=== PATIENT | male | born 1955 | race Two or more races ===

== ENCOUNTER 2020-10-09 11:00 | Outpatient (REF) | payer OTHER, SELFPAY | END 2020-10-09 11:01 | disposition home or self-care (01) | LOC: HO.LAB 11:00 | PROVIDERS: Visit Provider Internal Medicine | DX: Z20.822 Contact with and (suspected) exposure to COVID-19 (principal) | CPT/HCPCS: 36415; C9803; U0003; U0005 ==

== ENCOUNTER 2020-10-17 09:10 | Emergency (ER) | payer OTHER, SELFPAY ==
--- NOTE | ~2020-10-17 | XR_ITS ---
EXAMINATION: XR CHEST CLINICAL INFORMATION: Shortness of breath. COMPARISON: None TECHNIQUE: Frontal view of the chest was obtained. FINDINGS: Bilateral patchy infiltrates are seen most pronounced peripherally in the right upper lobe. Small radiopaque densities overlie the left lower lung. The heart and mediastinal structures are unremarkable. XR/XR chest 1V IMPRESSION: Bilateral patchy infiltrates most pronounced in the right upper lobe most consistent with an infectious/inflammatory process.
--- NOTE | ~2020-10-17 | CT_ITS ---
EXAMINATION: CT ANGIOGRAM OF THE CHEST WITH AND WITHOUT CONTRAST (CT PULMONARY ANGIOGRAM FOR PE) CLINICAL INFORMATION: Reason for Exam SOB, elevted ddimer/ + covid COMPARISON: None TECHNIQUE: Prior to contrast administration, noncontrast localization images were obtained. Subsequently, multidetector volumetric imaging was performed from the thoracic inlet to below the diaphragms following the administration of 80 mL Omnipaque 350 intravenous contrast. No contrast reaction reported Sagittal, coronal, and MIP oblique sagittal reformatted images were obtained on the CT workstation, uploaded to PACS, and reviewed. This CT examination was performed using dose optimization techniques as appropriate, variously including the following: *Automated exposure control *Adjustment of mA and/or kV according to patient size (this includes techniques or standardized protocols for targeted exams where dose is matched to indication/reason for exam; i.e. extremities or head) *Use of iterative reconstruction technique Total exam dose-length product 346 mGy-cm FINDINGS: QUALITY OF STUDY/CONTRAST BOLUS: Satisfactory. PULMONARY ARTERIES: No central or segmental pulmonary emboli. THORACIC AORTA: No aneurysm or dissection. LUNG: The lungs are expanded with right apical parenchymal scarring and apical pleural thickening. There is patchy subpleural-based groundglass attenuation changes in both upper lobes, both lower lobes and right middle lobe suggestive of pneumonitis. There is a 6 mm right lower lobe nodule image 39/12. A 4 mm nodule is seen along the right major fissure image 31/12 likely fissural lymph node. PLEURA: There is minimal left posterior pleural thickening. No evidence of pleural effusion. MEDIASTINUM: The thyroid lobes are symmetrical and normal. The central trachea and the bronchi widely patent. The heart size and the great vessels are normal caliber. There are coronary artery calcifications present. No pericardial effusion seen. No evidence of septal bowing or right heart strain. CHEST WALL/AXILLA: There are small bilateral shotty inguinal lymph nodes. The chest wall is unremarkable. OSSEOUS STRUCTURES: No acute or suspicious osseous abnormality. UPPER ABDOMEN: Visualized liver, spleen and pancreas appears unremarkable. No reflux of contrast into the hepatic veins to suggest elevated right heart pressures. CT/CT angio chest PE protocol IMPRESSION: No evidence of deep. No evidence of aortic aneurysm or dissection. Diffuse bilateral subpleural pneumonic inflammatory changes. ? Covid related. Small nodule right lower lobe and a fissural lymph node right major fissure. No abnormal mediastinal or hilar lymphadenopathy. VTE: negative
[2020-10-17 09:39] VITALS: BP 129/69; PULSE 98; RESP 20; TEMP 37; O2SAT 98; BMI 29.0
--- NOTE | 2020-10-17 10:30 | ECG_ITS ---
Test Reason : DIFFICULY BREATHING Blood Pressure : / mmHG Vent. Rate : 054 BPM Atrial Rate : 054 BPM P-R Int : 154 ms QRS Dur : 092 ms QT Int : 424 ms P-R-T Axes : 062 044 039 degrees QTc Int : 402 ms Sinus bradycardia Otherwise normal ECG No previous ECGs available Referred By: Generic ED Physician Electronically Signed By:Spike Lunsford
--- NOTE | 2020-10-17 10:38 | ED_ITS ---
HPI - General Adult General Chief complaint: General Medical Stated complaint: covid + Time Seen by Provider: 10/17/20 10:38 Source: patient Mode of arrival: ambulatory Limitations: no limitations History of Present Illness HPI narrative: 64-year-old male with below noted past medical history presenting with complaint of states he was diagnosed with COVID last week today he has had continued myalgias productive cough, subjective fever and shortness of breath associated with cough fits. No chest pain. No abdominal pain nausea vomiting or diarrhea. Onset (ago): day(s) Radiation: non-radiation Severity: moderate Severity scale (1-10): 5 Relieving factors: none Exacerbating factors: none Associated symptoms: cough and fever/chills Treatments prior to arrival: none Related Data Previous Rx's Medication Instructions Recorded albuterol sulfate 2 puff INHALATION Q4-6H PRN #8.5 g 10/17/20 doxycycline monohydrate 100 mg PO BID 10 Days #20 cap 10/17/20 prednisone 60 mg PO DAILY 5 Days #15 tab 10/17/20 Allergies Allergy/AdvReac Type Severity Reaction Status Date / Time Penicillins [PENICILLINS] Allergy Severe FAINTED Verified 10/17/20 09:42 CHILD Review of Systems Review of Systems: Constitutional: No Weight loss, No Fever, No Chills, No Night Sweats, No Fatigue, No Malaise ENT/Mouth: No Hearing loss, No Ear Pain, No Nasal Congestion, No Sinus Pain, No Hoarseness, No sore throat, No Rhinorrhea, No Swallowing Difficulty Eyes: No Eye Pain, No Swelling, No Redness, No Foreign Body, No Discharge, No Vision Changes Cardiovascular: + Chest Pain, + SOB, No Dyspnea on Exertion, No Orthopnea, No Edema, No Palpitations Respiratory: + Cough, No Sputum, No Wheezing, No Smoke Exposure, No Dyspnea Gastrointestinal: No Nausea, No Vomiting, No Diarrhea, No Constipation, No abdominal Pain, No Hematochezia, No Melena Genitourinary: No Dysuria, No Urinary Frequency, No Hematuria, No Urinary Incontinence, No Urgency, No Flank Pain, No Urinary Flow Changes, No Hesitancy Musculoskeletal: No joint pain, No Myalgias, No Joint Swelling Skin: No Skin Lesions, No rash Neuro: No Weakness, No Numbness, No Paresthesias, No Loss of Consciousness, No Dizziness, No Headache Psych: No Social Issues Heme/Lymph: No Bruising, No Bleeding,No Lymphadenopathy Endocrine: No Polyuria, No Polydipsia, No Temperature Intolerance Yes all other systems are reviewed and are negative [facility] Past Medical History Medical History Asthma Bladder cancer Diabetes [place] (hard of hearing) Social History Social History Smoking Status: Former smoker Use of substances other than those prescribed or required for medical reasons: No Advance Directives: No Advance Directives Information Provided: Yes Physical Exam Vital Signs: Vital Signs: Last Vital Signs Temp 98.6 F 10/17/20 09:39 Pulse 56 10/17/20 13:39 Resp 18 10/17/20 14:55 BP 131/74 10/17/20 13:39 Pulse Ox 96 10/17/20 14:55 Body Mass Index 29.0 Reviewed Const: General: cooperative; No acute distress or intoxicated appearing Nutritional Appearance: average body habitus Orientation/consciousness: patient oriented x3 HENMT: Head: Yes normal to inspection Ears: hearing grossly normal bilaterally Eyes: General: appearance normal, both eyes and all related structures Visual Cyr: normal visual cyr by confrontation Neck: Neck: Yes normal visual inspection, No positive Brudzinski's sign, No positive Kernig's sign and No tender Thyroid: Thyroid normal Chest: Chest palpation & inspection: normal inspection of the chest Resp: Effort & Inspection: normal respiratory effort Auscultation: wheezes expiratory wheezes and left upper Cardio: Jugular venous distension: no JVD Rhythm: regular rhythm Heart sounds: S1 normal heart sound present and S2 normal heart sound present GI: Inspection: Yes normal to inspection Palpation (GI): Soft to palpation Percussion: Yes normal to percussion Auscultation: normal bowel sounds : General: Yes no CVA tenderness Back/Spine/Pelvis: Back: no CVA tenderness Skin: General skin exam: no rashes or lesions noted Neuro: General: patient oriented x3 Extrem: General: Yes normal to inspection Course Course Course Narrative: 61-year-old male with history of asthma presenting with complaint of worsening COVID symptoms diagnosis here with COVID-19 on 10/09/2020 after having 1 day of upper respiratory symptoms has had symptoms wax and wane with myalgias and cough with associated shortness of breath. Bedside monitor reads oxygen of 98% on room air and hemodynamically stable. Given his recent diagnosis and history of asthma will check labs including COVID started occasion labs and treat with steroids nebs p.r.n.. Reevaluation(s) Reevaluation #1: He has been resting comfortably without any complaints. D- dimer elevated CTA of chest ordered for rule out PE. Reevaluation #2: Remained stable pulse ox 98% on room air at rest and with ambulation. CTA negative of the chest for PE. I will give a short course prednisone given his underlying history of asthma, doxycycline and discharged with clear precaution return home monitoring and follow-up instructions. He feels comfortable plan. Stable for discharge. Medical Decision Making Lab Data Result diagrams: 10/17/20 10:59 10/17/20 10:59 Labs: Lab Results 10/17/20 10/17/20 10/17/20 Range/Units 10:59 10:59 10:59 WBC 7.0 (4.8-10.8) X10*3/uL RBC 4.40 L (4.60-5.80) X10*6/uL Hgb 12.2 L (14.0-18.0) g/dl Hct 37.5 L (42-52) % MCV 85.2 (80-98) fL MCH 27.7 (27.0-33.0) pg MCHC 32.5 (31.0-36.0) g/dl RDW 13.5 (11.0-16.0) % Plt Count 258 (160-400) X10*3/uL MPV 9.3 L (9.4-12.4) fL Immature Gran % (Auto) 0.3 (0.0-0.4) % Neut % (Auto) 72.9 (45-73) % Lymph % (Auto) 22.6 (20-40) % [place] % (Auto) 2.4 (2-11) % Eos % (Auto) 1.7 (0-4) % Baso % (Auto) 0.1 (0-2) % Lymph # (Auto) 1.6 (1.2-4.9) X10*3/uL [place] # (Auto) 0.2 (0.1-1.2) X10*3/uL Eos # (Auto) 0.1 (0.0-0.4) X10*3/uL Baso # (Auto) 0.0 (0.0-0.2) X10*3/uL Abs Immat Gran (auto) 0.02 (0.00-0.03) X10*3/uL Absolute Neuts (auto) 5.1 (2.0-8.3) X10*3/uL Absolute Nucleated RBC 0.000 (0.0-0.012) X10*3/uL Nucleated RBC % (auto) 0.0 (0.0-0.2) /100WBC PT 11.1 (10.8-13.0) SEC INR 0.9 (0.9-1.1) APTT 29.3 (24.1-38.0) SEC D-Dimer 1833 NG/ML Hold Blue Top SEE NOTE Sodium (135-145) mmol/L Potassium (3.3-5.1) mmol/L Chloride (96-108) mmol/L Carbon Dioxide (22-29) mmol/L Anion Gap (12-20) BUN (9-16) mg/dL Creatinine (0.5-1.4) mg/dL Estim Creat Clear Calc Estimated GFR Random Glucose (60-115) mg/dL Lactic Acid (0.5-2.0) mmol/L Lactic Acid Fup @ 2Hr (0.5-2.0) mmol/L Calcium (8.4-10.2) mg/dL Ferritin (20-250) ng/mL Total Bilirubin (0.0-1.0) mg/dL AST (5-37) U/L ALT (0-40) U/L Alkaline Phosphatase (39-117) U/L Lactate Dehydrogenase (118-273) U/L Troponin I High Sens < 3.5 (<3.5-35.0) ng/L C-Reactive Protein (< or = 0.50) mg/dL B-Natriuretic Peptide 287 H (<100) pg/mL Total Protein (6.5-8.0) g/dL Albumin (3.5-5.0) g/dL Procalcitonin ng/mL 10/17/20 10/17/20 10/17/20 Range/Units 10:59 10:59 10:59 WBC (4.8-10.8) X10*3/uL RBC (4.60-5.80) X10*6/uL Hgb (14.0-18.0) g/dl Hct (42-52) % MCV (80-98) fL MCH (27.0-33.0) pg MCHC (31.0-36.0) g/dl RDW (11.0-16.0) % Plt Count (160-400) X10*3/uL MPV (9.4-12.4) fL Immature Gran % (Auto) (0.0-0.4) % Neut % (Auto) (45-73) % Lymph % (Auto) (20-40) % [place] % (Auto) (2-11) % Eos % (Auto) (0-4) % Baso % (Auto) (0-2) % Lymph # (Auto) (1.2-4.9) X10*3/uL [place] # (Auto) (0.1-1.2) X10*3/uL Eos # (Auto) (0.0-0.4) X10*3/uL Baso # (Auto) (0.0-0.2) X10*3/uL Abs Immat Gran (auto) (0.00-0.03) X10*3/uL Absolute Neuts (auto) (2.0-8.3) X10*3/uL Absolute Nucleated RBC (0.0-0.012) X10*3/uL Nucleated RBC % (auto) (0.0-0.2) /100WBC PT (10.8-13.0) SEC INR (0.9-1.1) APTT (24.1-38.0) SEC D-Dimer NG/ML Hold Blue Top Sodium 139 (135-145) mmol/L Potassium 4.1 (3.3-5.1) mmol/L Chloride 102 (96-108) mmol/L Carbon Dioxide 25 (22-29) mmol/L Anion Gap 16 (12-20) BUN 14 (9-16) mg/dL Creatinine 0.94 (0.5-1.4) mg/dL Estim Creat Clear Calc 80.7 Estimated GFR > 60 Random Glucose 208 H (60-115) mg/dL Lactic Acid 3.6 H* (0.5-2.0) mmol/L Lactic Acid Fup @ 2Hr (0.5-2.0) mmol/L Calcium 8.9 (8.4-10.2) mg/dL Ferritin 235 (20-250) ng/mL Total Bilirubin 0.2 (0.0-1.0) mg/dL AST 12 (5-37) U/L ALT 23 (0-40) U/L Alkaline Phosphatase 123 H (39-117) U/L Lactate Dehydrogenase 272 (118-273) U/L Troponin I High Sens (<3.5-35.0) ng/L C-Reactive Protein 13.71 H (< or = 0.50) mg/dL B-Natriuretic Peptide (<100) pg/mL Total Protein 6.4 L (6.5-8.0) g/dL Albumin 3.4 L (3.5-5.0) g/dL Procalcitonin 0.05 ng/mL 10/17/20 Range/Units 13:38 WBC (4.8-10.8) X10*3/uL RBC (4.60-5.80) X10*6/uL Hgb (14.0-18.0) g/dl Hct (42-52) % MCV (80-98) fL MCH (27.0-33.0) pg MCHC (31.0-36.0) g/dl RDW (11.0-16.0) % Plt Count (160-400) X10*3/uL MPV (9.4-12.4) fL Immature Gran % (Auto) (0.0-0.4) % Neut % (Auto) (45-73) % Lymph % (Auto) (20-40) % [place] % (Auto) (2-11) % Eos % (Auto) (0-4) % Baso % (Auto) (0-2) % Lymph # (Auto) (1.2-4.9) X10*3/uL [place] # (Auto) (0.1-1.2) X10*3/uL Eos # (Auto) (0.0-0.4) X10*3/uL Baso # (Auto) (0.0-0.2) X10*3/uL Abs Immat Gran (auto) (0.00-0.03) X10*3/uL Absolute Neuts (auto) (2.0-8.3) X10*3/uL Absolute Nucleated RBC (0.0-0.012) X10*3/uL Nucleated RBC % (auto) (0.0-0.2) /100WBC PT (10.8-13.0) SEC INR (0.9-1.1) APTT (24.1-38.0) SEC D-Dimer NG/ML Hold Blue Top Sodium (135-145) mmol/L Potassium (3.3-5.1) mmol/L Chloride (96-108) mmol/L Carbon Dioxide (22-29) mmol/L Anion Gap (12-20) BUN (9-16) mg/dL Creatinine (0.5-1.4) mg/dL Estim Creat Clear Calc Estimated GFR Random Glucose (60-115) mg/dL Lactic Acid (0.5-2.0) mmol/L Lactic Acid Fup @ 2Hr 1.3 (0.5-2.0) mmol/L Calcium (8.4-10.2) mg/dL Ferritin (20-250) ng/mL Total Bilirubin (0.0-1.0) mg/dL AST (5-37) U/L ALT (0-40) U/L Alkaline Phosphatase (39-117) U/L Lactate Dehydrogenase (118-273) U/L Troponin I High Sens (<3.5-35.0) ng/L C-Reactive Protein (< or = 0.50) mg/dL B-Natriuretic Peptide (<100) pg/mL Total Protein (6.5-8.0) g/dL Albumin (3.5-5.0) g/dL Procalcitonin ng/mL Imaging Data Chest x-ray: Radiologist's impression: [address] [id number] ReportSigned Patient: Tonia Izquierdo#: [id number]: 7Acct:[id number]/Sex: 64 / MADM Date: 10/17/20Loc: EDAttending Dr: Ordering Physician: Generic ED Physician Date of Service: 10/17/20 Procedure(s): XR chest 1V Accession Number(s): [id number] cc: Generic ED Physician~ EXAMINATION: XR CHEST CLINICAL INFORMATION: Shortness of breath. COMPARISON: None TECHNIQUE: Frontal view of the chest was obtained. FINDINGS: Bilateral patchy infiltrates are seen most pronounced peripherally in the right upper lobe. Small radiopaque densities overlie the left lower lung. The heart and mediastinal structures are unremarkable. XR/XR chest 1V IMPRESSION: Bilateral patchy infiltrates most pronounced in the right upper lobe most consistent with an infectious/inflammatory process. Dictated By:MAYA YANES MDSigned By:<Electronically signed by MAYA YANSE MD in OV>10/17/20 1154 DD/ 1030TD/TT: Head Waiter/Waitress: LANDON CTA chest PE: Radiologist's impression: [address] [id number] ReportSigned Patient: Tonia Izquierdo#: [id number]: 1955cct:[id number]/Sex: 64 / MADM Date: 10/17/20Loc: [email or web address].EDAttending Dr: Ordering Physician: Generic ED Physician Date of Service: 10/17/20 Procedure(s): XR chest 1V Accession Number(s): [id number] cc: Generic ED Physician~ EXAMINATION: XR CHEST CLINICAL INFORMATION: Shortness of breath. COMPARISON: None TECHNIQUE: Frontal view of the chest was obtained. FINDINGS: Bilateral patchy infiltrates are seen most pronounced peripherally in the right upper lobe. Small radiopaque densities overlie the left lower lung. The heart and mediastinal structures are unremarkable. XR/XR chest 1V IMPRESSION: Bilateral patchy infiltrates most pronounced in the right upper lobe most consistent with an infectious/inflammatory process. Dictated By:MAYA YANES MDSigned By:<Electronically signed by MAYA YANES MD in OV>10/17/20 1154 DD/ 1030TD/TT: Head Waiter/Waitress: LANDON ECG Data Interpretation: Sinus bradycardia Rate 54 Otherwise normal ECG No acute ST segment changes No previous ECGs availabl Discharge Plan Discharge Clinical Impression: COVID-19, Asthma Patient Disposition: Home, Self-Care Instructions: Asthma (ED), COVID-19 (Coronavirus Disease 2019) (ED) Additional Instructions: Supportive care as discussed Taking medications prescribed Monitor your oxygen level at home as reviewed Return if any concerns or worsening symptoms Otherwise do a follow-up tele visit with your primary care doctor next 3-5 days Thank you Prescriptions: New doxycycline monohydrate 100 mg capsule 100 mg PO BID 10 Days Qty: 20 RF: 0 prednisone 20 mg tablet 60 mg PO DAILY 5 Days Qty: 15 RF: 0 albuterol sulfate 90 mcg/actuation HFA aerosol inhaler 2 puff inhalation Q4-6H PRN (Reason: shortness of breath or wheezing) Qty: 8.5 RF: 0 Referrals: Physician,Unknown [Primary Care Provider] - 2 days (Phone visit with her doctor)
[2020-10-17 11:00] VITALS: BP 108/69; PULSE 54; RESP 24; O2SAT 97
[2020-10-17 11:07] LABS: MANUAL DIFF FLAG NO
[2020-10-17 11:10] LABS: Basophils Percent Auto 0.1 % (0-2); Eosinophils Absolute Auto 0.1 X10*3/uL (0.0-0.4); Eosinophils Percent Auto 1.7 % (0-4); Hematocrit 37.5 % (42-52); Hemoglobin 12.2 g/dl (14.0-18.0); Imm Gran Abs Auto 0.02 X10*3/uL (0.00-0.03); Imm Gran Pct Auto 0.3 % (0.0-0.4); Lymphocytes Absolute Auto 1.6 X10*3/uL (1.2-4.9); Lymphocytes Percent Auto 22.6 % (20-40); Mean Corpuscular HGB Conc 32.5 g/dl (31.0-36.0); Mean Corpuscular Hemoglobin 27.7 pg (27.0-33.0); Mean Corpuscular Volume 85.2 fL (80-98); Mean Platelet Volume 9.3 fL (9.4-12.4); Monocytes Absolute Auto 0.2 X10*3/uL (0.1-1.2); Monocytes Percent Auto 2.4 % (2-11); Neutrophils Absolute Auto 5.1 X10*3/uL (2.0-8.3); Neutrophils Percent Auto 72.9 % (45-73); Platelet Count 258 X10*3/uL (160-400); Red Cell Distribution Width 13.5 % (11.0-16.0)
[2020-10-17 11:20] LABS: INTERNATIONAL NORM RATIO 0.9 (0.9-1.1); Prothrombin Time 11.1 SEC (10.8-13.0)
[2020-10-17 11:23] LABS: Partial Thromboplastin Time 29.3 SEC (24.1-38.0)
[2020-10-17 11:30] LABS: D Dimer 1833 NG/ML
[2020-10-17 11:43] LABS: Alanine Aminotransferase 23 U/L (0-40); Albumin Level 3.4 g/dL (3.5-5.0); Alkaline Phosphatase 123 U/L (39-117); Anion Gap 16 (12-20); Aspartate Amino Transferase 12 U/L (5-37); Bilirubin Total 0.2 mg/dL (0.0-1.0); Blood Urea Nitrogen 14 mg/dL (9-16); C Reactive Protein 13.71 mg/dL (< or = 0.50); Calcium 8.9 mg/dL (8.4-10.2); Carbon Dioxide 25 mmol/L (22-29); Chloride 102 mmol/L (96-108); Creatinine Clr Calc Pharmacy 80.7; Estimated Glomerular Filt Rate > 60; Glucose Random 208 mg/dL (60-115); Lactate Dehydrogenase 272 U/L (118-273); Potassium 4.1 mmol/L (3.3-5.1); Sodium 139 mmol/L (135-145); Total Protein 6.4 g/dL (6.5-8.0)
[2020-10-17 11:44] LABS: B Type Natriuretic Peptide 287 pg/mL (<100); Troponin-I High Sensitivity < 3.5 ng/L (<3.5-35.0)
[2020-10-17 11:46] LABS: Lactic Acid 3.6 mmol/L (0.5-2.0)
[2020-10-17 11:58] LABS: Ferritin 235 ng/mL (20-250); Procalcitonin 0.05 ng/mL
[2020-10-17 12:21] VITALS: BP 125/67; PULSE 51; RESP 20; O2SAT 93
[2020-10-17] MEDS: 0.9 % Sodium Chloride 500 ML IV (12:22)
[2020-10-17] MEDS: dexAMETHasone sod phosphate 4 MG/ML VIAL 6 MG IVPUSH (12:24)
--- NOTE | 2020-10-17 12:31 | PC.NURSE ---
Plan for CTA of chest, 500ml started and decadron given as charted. sat 93% on room air and 2lm via nc placed, sat up to 98% at this time.
[2020-10-17 13:05] LABS: Reflex Lactate? Lactic Acid Added
[2020-10-17] MEDS: iohexoL 350 MG/ML 75 ML INFUS..BTL IV (13:14)
[2020-10-17 13:39] VITALS: BP 131/74; PULSE 56; RESP 18; O2SAT 99
--- NOTE | 2020-10-17 13:40 | PC.NURSE ---
repeat lactic drawn/sent. pt resting and appears comfortable, states body ache is 8/10. vss. resp unlabored, intermittent coughing spells noted, dry
[2020-10-17 14:25] LABS: ~Lactic Acid-LAB USE ONLY 1.3 mmol/L (0.5-2.0)
[2020-10-17 14:55] VITALS: RESP 18; O2SAT 96
== END 2020-10-17 16:32 | disposition home or self-care (01) ==
PROVIDERS: Nurse Practitioner Primary Care; Emergency Provider Emergency Medicine Emergency Medical Services
DX: J45.909 Unspecified asthma, uncomplicated (principal); Z86.16 Personal history of COVID-19; Z85.51 Personal history of malignant neoplasm of bladder; E11.9 Type 2 diabetes mellitus without complications
CPT/HCPCS: 36415; 71045; 71275; 80053; 82728; 83605; 83615; 83880; 84145; 84484; 85025; 85379; 85610; 85730; 86140; 93005; 96361; 96374; 99284; J1100; Q9967

== ENCOUNTER 2020-10-24 11:33 | Outpatient (REF) | payer OTHER, SELFPAY | END 2020-10-24 11:34 | disposition home or self-care (01) | LOC: HO.LAB 11:33 | PROVIDERS: Visit Provider Internal Medicine | DX: Z20.822 Contact with and (suspected) exposure to COVID-19 (principal) | CPT/HCPCS: 36415; C9803; U0003; U0005 ==

== ENCOUNTER 2020-11-14 08:19 | Outpatient (REF) | payer OTHER, SELFPAY ==
[2020-11-14 13:31] LABS: SARS COV2 PCR INHOUSE NEGATIVE (Negative)
== END 2020-11-14 08:20 | disposition home or self-care (01) ==
LOC: HO.LAB 08:19
PROVIDERS: Visit Provider Internal Medicine
DX: Z20.822 Contact with and (suspected) exposure to COVID-19 (principal)
CPT/HCPCS: C9803; U0003

== ENCOUNTER 2020-11-19 12:56 | Emergency (ER) | payer OTHER, SELFPAY ==
--- NOTE | ~2020-11-19 | XR_ITS ---
EXAMINATION: XR CHEST CLINICAL INFORMATION: Shortness of breath COMPARISON: CT scan of the chest October 2020 and chest x-ray October 2020 TECHNIQUE: Frontal view of the chest was obtained. FINDINGS: Minimal linear opacity at the left base compatible discoid atelectasis and/or scar unchanged. Punctate calcifications overlying the left chest from to be in the soft tissues posteriorly on the prior CT rather than in the chest cavity. The cardiac silhouette mediastinum pulmonary vascularity are normal. Bone and soft tissues unremarkable XR/XR chest 1V IMPRESSION: No acute disease. No change.
--- NOTE | ~2020-11-19 | CT_ITS ---
EXAMINATION: CT HEAD WITHOUT CONTRAST CT CERVICAL SPINE WITHOUT CONTRAST CLINICAL INFORMATION: Reason for Exam headache s/p trauma, dizziness x1 month COMPARISON: CT of the paranasal sinuses done on 04/28/2014. TECHNIQUE: Imaging was performed from the skull base to vertex without intravenous administration of contrast. In addition, helical noncontrast CT imaging was acquired through the cervical spine and source images were reviewed along with axial reconstructions and sagittal and coronal MPRs. This CT examination was performed using dose optimization techniques as appropriate, variously including the following: *Automated exposure control. *Adjustment of mA and/or kV according to patient size (this includes techniques or standardized protocols for targeted exams where dose is matched to indication/reason for exam; i.e. extremities or head). *Use of iterative reconstruction technique. Total exam dose-length product 1387 mGy-cm FINDINGS: HEAD: No intracranial mass, hemorrhage, or midline shift is visualized. The ventricles and sulci are age-appropriate. No extra-axial collections are identified. Opacified bilateral mastoid air cells and mucoperiosteal thickening of bilateral ethmoidal and frontal sinuses are present. CERVICAL SPINE: Multilevel degenerative spondylosis related changes are noted throughout the entire cervical spine with significant facet joint arthritic changes also throughout the cervical spine with most pronounced changes seen at upper cervical spine mostly to the left. There is no evidence of acute cervical spine fracture. Vertebral bodies remain normal in height, and alignment is anatomic. No prevertebral or paravertebral soft tissue abnormality is identified. Limited assessment of the lung apices is unremarkable. CT/CT cervical spine wo con IMPRESSION: 1. No acute intracranial pathology. 2. No CT evidence of acute cervical spine fracture or traumatic subluxation. 3. Opacified bilateral mastoid air cells and mucoperiosteal thickening of the frontal ethmoidal air cells. 4. Moderate multilevel degenerative spondylosis including significant facet joint arthritic changes.
--- NOTE | 2020-11-19 13:31 | PC.NURSE ---
called motor assembler to assist in triaging patient, awaiting their arrival
[2020-11-19 13:36] VITALS: BP 198/93; PULSE 90; RESP 20; TEMP 36.9; O2SAT 97; BMI 28.8
[2020-11-19 15:13] VITALS: BP 130/101; PULSE 80; RESP 17; O2SAT 99
--- NOTE | 2020-11-19 15:20 | ECG_ITS ---
Test Reason : FALL Blood Pressure : / mmHG Vent. Rate : 064 BPM Atrial Rate : 064 BPM P-R Int : 164 ms QRS Dur : 086 ms QT Int : 396 ms P-R-T Axes : 053 014 023 degrees QTc Int : 408 ms Normal sinus rhythm Possible Left atrial enlargement Borderline ECG When compared with ECG of 17-OCT-2020 10:57, No significant change was found Referred By: Rhnia Sanchez Electronically Signed By:DELFINA WAGNER
--- NOTE | 2020-11-19 15:22 | ED.GENADULT ---
HPI - General Adult General Chief complaint: General Medical Stated complaint: Multiple Complaints Time Seen by Provider: 11/19/20 15:05 Source: patient Mode of arrival: ambulatory Limitations: no limitations History of Present Illness HPI narrative: 64 y/o male with history of DM, HTN, asthma, bladder cancer, chronic hearing loss, rheumatoid arthritis, recent COVID-19 in October who presents to the ED reporting 1 month of dizziness and headaches. He states it started after he used oven cleaning spray and spray for killing cockroaches without wearing a mask. He reports inhaling the substances and not feeling himself since. He states he feels intoxicated but does not drink alcohol or use drugs. He reports hitting his head after falling out of bed 2 nights ago. He has had nausea on/off for a month with loose stools as well. No abdominal pain, no vomiting. He reports subjective fevers and always feeling hot. He called his doctor 3 days ago to report his ongoing symptoms and an appointment was arranged for next week. He denies any weakness in his arms or legs, no numbness or tingling. He cannot describe his dizziness, when asked if it feels like the room is spinning he says yes and he also states he feels lightheaded. It is all the time, does not come and go. He denies being on blood thinners or losing consciousness after his fall. MD complaint: dizziness and headache x1 month Onset (ago): month(s) (1) Location: head and abdomen Radiation: non-radiation Severity: moderate Quality: aching Pain Consistency: constant Relieving factors: none Exacerbating factors: movement Associated symptoms: headaches and nausea/vomiting Treatments prior to arrival: none Related Data Home Medications Medication Instructions Recorded Confirmed aspirin 81 mg PO DAILY 11/19/20 11/19/20 metformin 1 tab PO BID 11/19/20 11/19/20 nicotine (polacrilex) 1 mg PO Q2H PRN 11/19/20 11/19/20 prednisone 10 mg PO DAILY 11/19/20 11/19/20 risperidone 4 mg PO BEDTIME 11/19/20 11/19/20 sertraline 1.5 tab PO QAM 11/19/20 11/19/20 Previous Rx's Medication Instructions Recorded albuterol sulfate 2 puff INHALATION Q4-6H PRN #8.5 g 03/09/21 doxycycline monohydrate 100 mg PO BID 10 Days #20 cap 10/17/20 Allergies Allergy/AdvReac Type Severity Reaction Status Date / Time Penicillins [PENICILLINS] Allergy Severe FAINTED Verified 10/17/20 09:42 CHILD Review of Systems Review of Systems: Constitutional: + Fever (subjective), No Chills ENT/Mouth: No sore throat, No Rhinorrhea, No Swallowing Difficulty Eyes: No Eye Pain, No Swelling, No Redness Cardiovascular: No Chest Pain, No SOB, No Orthopnea, No Edema Respiratory: No Cough, No Sputum, No Wheezing, No dyspnea Gastrointestinal: + Nausea, No Vomiting, + Diarrhea, No abdominal Pain, No Hematochezia, No Melena Genitourinary: No Dysuria, No Urinary Frequency, No Hematuria Musculoskeletal: No joint pain, No Myalgias Skin: No Skin Lesions, No rash Neuro: No Weakness, No Numbness, + Dizziness, + Headache Psych: No Anxiety/Panic, No Depression Heme/Lymph: No Bruising, No Lymphadenopathy Endocrine: No Polyuria, No Polydipsia PMFSH Past Medical History Attestation statement: The following information was validated with the patient. Medical History Asthma Bladder cancer Diabetes AUGUSTINE (hard of hearing) Social History Social History Alcohol intake: never Smoking Status: Current every day smoker Use of substances other than those prescribed or required for medical reasons: No Advance Directives: No Advance Directives Information Provided: Yes Physical Exam Vital Signs: Vital Signs: Last Vital Signs Temp 97.8 F 11/19/20 17:06 Pulse 74 11/19/20 17:06 Resp 16 11/19/20 17:06 BP 141/83 H 11/19/20 17:06 Pulse Ox 97 11/19/20 17:06 Body Mass Index 28.8 Appearance: Alert. Oriented X3. No acute distress. Eyes: Pupils equal, round and reactive to light. EOMI, No nystagmus ENT: Pharynx normal. Neck: Normal inspection. Neck supple. CVS: Normal heart rate and rhythm. Pulses normal. Respiratory: No respiratory distress. Breath sounds normal. Abdomen: Soft and nontender. +BS x4 Skin: Skin warm and dry. Normal skin color. Normal skin turgor. No rashes. Extremities: No lower extremity edema. Neuro: Oriented X 3. No motor deficit. No sensory deficit. Speaks in full sentences in high pitched voice, very loud voice. Normal finger to nose and normal heel to argueta bilaterally. walks with steady gait with limp due to chronic LE pain. baseline per patient. Course Course Course Narrative: 64 y/o male with history of HTN, HLD, RA, DM and recent COVID who presents with dizziness and headache x1 month. His BP is significantly elevated on arrival 198/93 which can be contributing to his symptoms. He reports recent trauma and had COVID 1 month ago so will get CT head/neck to assess for intracranial injuryt or stroke. No debilitating symptoms and neuro exam is non-focal, not a tPA candidate. Reevaluation(s) Reevaluation #1: CT head/neck showing 1. No acute intracranial pathology. 2. No CT evidence of acute cervical spine fracture or traumatic subluxation. 3. Opacified bilateral mastoid air cells and mucoperiosteal thickening of the frontal ethmoidal air cells. 4. Moderate multilevel degenerative spondylosis including significant facet joint arthritic changes. Lab workup is unremarkable. Orthostatic VS are negative. Repeat BP is significantly improved 130/100. He is ambulating with a steady gait, using his cane with a limp due to chronic pain which is his baseline. He denies dizziness at this time and feels good. He was advised to follow up with PCP, monitor BP at home. He Medical Decision Making Lab Data Result diagrams: 11/19/20 16:10 11/19/20 16:10 Labs: Lab Results 11/19/20 11/19/20 11/19/20 Range/Units 15:27 15:41 15:42 WBC (4.8-10.8) X10*3/uL RBC (4.60-5.80) X10*6/uL Hgb (14.0-18.0) g/dl Hct (42-52) % MCV (80-98) fL MCH (27.0-33.0) pg MCHC (31.0-36.0) g/dl RDW (11.0-16.0) % Plt Count (160-400) X10*3/uL MPV (9.4-12.4) fL Immature Gran % (Auto) (0.0-0.4) % Neut % (Auto) (45-73) % Lymph % (Auto) (20-40) % [place] % (Auto) (2-11) % Eos % (Auto) (0-4) % Baso % (Auto) (0-2) % Lymph # (Auto) (1.2-4.9) X10*3/uL [place] # (Auto) (0.1-1.2) X10*3/uL Eos # (Auto) (0.0-0.4) X10*3/uL Baso # (Auto) (0.0-0.2) X10*3/uL Abs Immat Gran (auto) (0.00-0.03) X10*3/uL Absolute Neuts (auto) (2.0-8.3) X10*3/uL Absolute Nucleated RBC (0.0-0.012) X10*3/uL Nucleated RBC % (auto) (0.0-0.2) /100WBC Hold Blue Top Sodium (135-145) mmol/L Potassium (3.3-5.1) mmol/L Chloride (96-108) mmol/L Carbon Dioxide (22-29) mmol/L Anion Gap (12-20) BUN (9-16) mg/dL Creatinine (0.5-1.4) mg/dL Estim Creat Clear Calc Estimated GFR POC Glucose 275 H (60-115) mg/dL Random Glucose (60-115) mg/dL Calcium (8.4-10.2) mg/dL Magnesium (1.6-2.6) mg/dL Total Bilirubin (0.0-1.0) mg/dL Direct Bilirubin (0.0-0.5) mg/dL AST (5-37) U/L ALT (0-40) U/L Alkaline Phosphatase (39-117) U/L Troponin I High Sens (<3.5-35.0) ng/L Total Protein (6.5-8.0) g/dL Albumin (3.5-5.0) g/dL Urine Color STRAW Urine Appearance CLEAR Urine pH 7.5 (5.0-8.0) Ur Specific [place] 1.010 (1.005-1.025) Urine Protein NEG (NEG-TRACE) MG/DL Urine Glucose (UA) >=1000 H (NEG) MG/DL Urine Ketones NEG (NEG) MG/DL Urine Blood TRACE (NEG) Urine Nitrite NEG (NEG) Ur Leukocyte Esterase NEG (NEG) Urine RBC 1-4 (0) /HPF Urine WBC 0 (0-4) /HPF Ur Squamous Epith Cells TRACE /LPF Urine Bacteria NONE /LPF Urine Opiates Screen Not Detected (Not Detect) Ur Barbiturates Screen Not Detected (Not Detect) Ur Phencyclidine Scrn Not Detected (Not Detect) Ur Amphetamines Screen Not Detected (Not Detect) U Benzodiazepines Scrn Not Detected (Not Detect) Urine Cocaine Screen Not Detected (Not Detect) U Marijuana (THC) Screen Not Detected (Not Detect) Ethyl Alcohol mg/dL 11/19/20 11/19/20 11/19/20 Range/Units 16:10 16:10 16:10 WBC 6.3 (4.8-10.8) X10*3/uL RBC 4.80 (4.60-5.80) X10*6/uL Hgb 13.5 L (14.0-18.0) g/dl Hct 40.5 L (42-52) % MCV 84.4 (80-98) fL MCH 28.1 (27.0-33.0) pg MCHC 33.3 (31.0-36.0) g/dl RDW 15.1 (11.0-16.0) % Plt Count 217 (160-400) X10*3/uL MPV 9.1 L (9.4-12.4) fL Immature Gran % (Auto) 0.3 (0.0-0.4) % Neut % (Auto) 77.9 H (45-73) % Lymph % (Auto) 16.6 L (20-40) % [place] % (Auto) 4.2 (2-11) % Eos % (Auto) 0.5 (0-4) % Baso % (Auto) 0.5 (0-2) % Lymph # (Auto) 1.0 L (1.2-4.9) X10*3/uL [place] # (Auto) 0.3 (0.1-1.2) X10*3/uL Eos # (Auto) 0.0 (0.0-0.4) X10*3/uL Baso # (Auto) 0.0 (0.0-0.2) X10*3/uL Abs Immat Gran (auto) 0.02 (0.00-0.03) X10*3/uL Absolute Neuts (auto) 4.9 (2.0-8.3) X10*3/uL Absolute Nucleated RBC 0.000 (0.0-0.012) X10*3/uL Nucleated RBC % (auto) 0.0 (0.0-0.2) /100WBC Hold Blue Top SEE NOTE Sodium 135 (135-145) mmol/L Potassium 4.0 (3.3-5.1) mmol/L Chloride 101 (96-108) mmol/L Carbon Dioxide 23 (22-29) mmol/L Anion Gap 15 (12-20) BUN 9 (9-16) mg/dL Creatinine 0.84 (0.5-1.4) mg/dL Estim Creat Clear Calc 89.9 Estimated GFR > 60 POC Glucose (60-115) mg/dL Random Glucose 292 H D (60-115) mg/dL Calcium 9.1 (8.4-10.2) mg/dL Magnesium 1.9 (1.6-2.6) mg/dL Total Bilirubin 0.5 (0.0-1.0) mg/dL Direct Bilirubin 0.2 (0.0-0.5) mg/dL AST 13 (5-37) U/L ALT 28 (0-40) U/L Alkaline Phosphatase 122 H (39-117) U/L Troponin I High Sens (<3.5-35.0) ng/L Total Protein 6.9 (6.5-8.0) g/dL Albumin 4.0 (3.5-5.0) g/dL Urine Color Urine Appearance Urine pH (5.0-8.0) Ur Specific [place] (1.005-1.025) Urine Protein (NEG-TRACE) MG/DL Urine Glucose (UA) (NEG) MG/DL Urine Ketones (NEG) MG/DL Urine Blood (NEG) Urine Nitrite (NEG) Ur Leukocyte Esterase (NEG) Urine RBC (0) /HPF Urine WBC (0-4) /HPF Ur Squamous Epith Cells /LPF Urine Bacteria /LPF Urine Opiates Screen (Not Detect) Ur Barbiturates Screen (Not Detect) Ur Phencyclidine Scrn (Not Detect) Ur Amphetamines Screen (Not Detect) U Benzodiazepines Scrn (Not Detect) Urine Cocaine Screen (Not Detect) U Marijuana (THC) Screen (Not Detect) Ethyl Alcohol mg/dL 11/19/20 11/19/20 Range/Units 16:10 16:10 WBC (4.8-10.8) X10*3/uL RBC (4.60-5.80) X10*6/uL Hgb (14.0-18.0) g/dl Hct (42-52) % MCV (80-98) fL MCH (27.0-33.0) pg MCHC (31.0-36.0) g/dl RDW (11.0-16.0) % Plt Count (160-400) X10*3/uL MPV (9.4-12.4) fL Immature Gran % (Auto) (0.0-0.4) % Neut % (Auto) (45-73) % Lymph % (Auto) (20-40) % [place] % (Auto) (2-11) % Eos % (Auto) (0-4) % Baso % (Auto) (0-2) % Lymph # (Auto) (1.2-4.9) X10*3/uL [place] # (Auto) (0.1-1.2) X10*3/uL Eos # (Auto) (0.0-0.4) X10*3/uL Baso # (Auto) (0.0-0.2) X10*3/uL Abs Immat Gran (auto) (0.00-0.03) X10*3/uL Absolute Neuts (auto) (2.0-8.3) X10*3/uL Absolute Nucleated RBC (0.0-0.012) X10*3/uL Nucleated RBC % (auto) (0.0-0.2) /100WBC Hold Blue Top Sodium (135-145) mmol/L Potassium (3.3-5.1) mmol/L Chloride (96-108) mmol/L Carbon Dioxide (22-29) mmol/L Anion Gap (12-20) BUN (9-16) mg/dL Creatinine (0.5-1.4) mg/dL Estim Creat Clear Calc Estimated GFR POC Glucose (60-115) mg/dL Random Glucose (60-115) mg/dL Calcium (8.4-10.2) mg/dL Magnesium (1.6-2.6) mg/dL Total Bilirubin (0.0-1.0) mg/dL Direct Bilirubin (0.0-0.5) mg/dL AST (5-37) U/L ALT (0-40) U/L Alkaline Phosphatase (39-117) U/L Troponin I High Sens < 3.5 (<3.5-35.0) ng/L Total Protein (6.5-8.0) g/dL Albumin (3.5-5.0) g/dL Urine Color Urine Appearance Urine pH (5.0-8.0) Ur Specific [place] (1.005-1.025) Urine Protein (NEG-TRACE) MG/DL Urine Glucose (UA) (NEG) MG/DL Urine Ketones (NEG) MG/DL Urine Blood (NEG) Urine Nitrite (NEG) Ur Leukocyte Esterase (NEG) Urine RBC (0) /HPF Urine WBC (0-4) /HPF Ur Squamous Epith Cells /LPF Urine Bacteria /LPF Urine Opiates Screen (Not Detect) Ur Barbiturates Screen (Not Detect) Ur Phencyclidine Scrn (Not Detect) Ur Amphetamines Screen (Not Detect) U Benzodiazepines Scrn (Not Detect) Urine Cocaine Screen (Not Detect) U Marijuana (THC) Screen (Not Detect) Ethyl Alcohol < 10 mg/dL ECG Data Attestation: I personally reviewed and interpreted this ECG as follows: Interpretation: normal sinus rhythm, HR 64 bpm, normal NC interval, normal QTc, nonspecific t- wave inversion in V12 and possible lead III. No ST segment elevations or depressions. Discharge Plan Discharge Clinical Impression: Hypertension Qualifiers: Hypertension type: unspecified Qualified Code(s): I10 - Essential (primary) hypertension Patient Disposition: Home, Self-Care Instructions: Hypertension and Diabetes (ED) Additional Instructions: Your lab workup was unremarkable in the ER. Your CT scan did not show any traumatic injuries. Your dizziness and headaches may be due to poorly controlled blood pressure. Recommend monitoring your blood pressure two times per day at home. Keep a record for you doctor. If you have dizziness, headache, vision changes, or chest pain in the setting of very high blood pressure come back to the ER for further evaluation. Follow up with your doctor this week. Prescriptions: No Action doxycycline monohydrate 100 mg capsule 100 mg PO BID 10 Days Qty: 20 RF: 0 albuterol sulfate 90 mcg/actuation HFA aerosol inhaler 2 puff inhalation Q4-6H PRN (Reason: shortness of breath or wheezing) Qty: 8.5 RF: 0 nicotine (polacrilex) 2 mg gum 1 mg PO Q2H PRN (Reason: Nicotine Cravings) RF: 0 risperidone 4 mg tablet 4 mg PO BEDTIME RF: 0 sertraline 100 mg tablet 1.5 tab PO QAM RF: 0 aspirin 81 mg tablet,delayed release (DR/EC) 81 mg PO DAILY RF: 0 metformin 1,000 mg tablet 1 tab PO BID RF: 0 prednisone 10 mg tablet 10 mg PO DAILY RF: 0 Referrals: Catie Hong MD [Primary Care Provider] - 2 days
[2020-11-19 15:31] LABS: Glucose, Whole Blood 275 mg/dL (60-115)
[2020-11-19 15:50] LABS: Glucose Urine UA >=1000 MG/DL (NEG); Leukocyte Esterase Urine NEG (NEG); Nitrite Urine NEG (NEG); PH 7.5 (5.0-8.0); Urine Blood TRACE (NEG); Urine Ketones NEG (NEG); Urine Protein NEG (NEG-TRACE)
[2020-11-19 15:52] LABS: Appearance Urine CLEAR; Color Urine STRAW
[2020-11-19 16:03] LABS: Squamous Epithelial Cell Urine TRACE /LPF; WBC Urine 0 /HPF (0-4)
[2020-11-19 16:15] LABS: MANUAL DIFF FLAG NO
[2020-11-19 16:16] LABS: Basophils Percent Auto 0.5 % (0-2); Eosinophils Percent Auto 0.5 % (0-4); Hematocrit 40.5 % (42-52); Hemoglobin 13.5 g/dl (14.0-18.0); Imm Gran Abs Auto 0.02 X10*3/uL (0.00-0.03); Imm Gran Pct Auto 0.3 % (0.0-0.4); Lymphocytes Percent Auto 16.6 % (20-40); Mean Corpuscular HGB Conc 33.3 g/dl (31.0-36.0); Mean Corpuscular Hemoglobin 28.1 pg (27.0-33.0); Mean Corpuscular Volume 84.4 fL (80-98); Mean Platelet Volume 9.1 fL (9.4-12.4); Monocytes Absolute Auto 0.3 X10*3/uL (0.1-1.2); Monocytes Percent Auto 4.2 % (2-11); Neutrophils Absolute Auto 4.9 X10*3/uL (2.0-8.3); Neutrophils Percent Auto 77.9 % (45-73); Platelet Count 217 X10*3/uL (160-400); Red Cell Distribution Width 15.1 % (11.0-16.0); White Blood Count 6.3 X10*3/uL (4.8-10.8)
[2020-11-19 16:17] LABS: Amphetamine Screen Urine Not Detected (Not Detect); Barbiturates, Urine Not Detected (Not Detect); Benzodiazepines Screen Urine Not Detected (Not Detect); Cannabinoid Screen Urine Not Detected (Not Detect); Cocaine Screen Urine Not Detected (Not Detect); Opiate Screen Urine Not Detected (Not Detect); Phencyclidine Screen Urine Not Detected (Not Detect)
[2020-11-19 16:44] LABS: Ethanol < 10 mg/dL
[2020-11-19 16:46] LABS: Alanine Aminotransferase 28 U/L (0-40); Alkaline Phosphatase 122 U/L (39-117); Anion Gap 15 (12-20); Aspartate Amino Transferase 13 U/L (5-37); Bilirubin Direct 0.2 mg/dL (0.0-0.5); Bilirubin Total 0.5 mg/dL (0.0-1.0); Blood Urea Nitrogen 9 mg/dL (9-16); Calcium 9.1 mg/dL (8.4-10.2); Carbon Dioxide 23 mmol/L (22-29); Chloride 101 mmol/L (96-108); Creatinine Clr Calc Pharmacy 89.9; Estimated Glomerular Filt Rate > 60; Glucose Random 292 mg/dL (60-115); Magnesium 1.9 mg/dL (1.6-2.6); Sodium 135 mmol/L (135-145); Total Protein 6.9 g/dL (6.5-8.0); Troponin-I High Sensitivity < 3.5 ng/L (<3.5-35.0)
[2020-11-19 17:02] VITALS: BP 141/83; PULSE 66
[2020-11-19 17:03] VITALS: BP 135/81; PULSE 76
[2020-11-19 17:05] VITALS: BP 152/83; PULSE 77
[2020-11-19 17:06] VITALS: BP 141/83; PULSE 74; RESP 16; TEMP 36.6; O2SAT 97
== END 2020-11-19 17:44 | disposition home or self-care (01) ==
PROVIDERS: Physician Assistant; Emergency Provider Emergency Medicine Emergency Medical Services; PCP Internal Medicine
DX: I10 Essential (primary) hypertension (principal); E11.9 Type 2 diabetes mellitus without complications; R51.9 Headache, unspecified; R42 Dizziness and giddiness; J45.909 Unspecified asthma, uncomplicated; F17.200 Nicotine dependence, unspecified, uncomplicated; Z85.51 Personal history of malignant neoplasm of bladder; Z86.16 Personal history of COVID-19; Z79.82 Long term (current) use of aspirin; Z79.84 Long term (current) use of oral hypoglycemic drugs
CPT/HCPCS: 36415; 70450; 71045; 72125; 80048; 80076; 80307; 80320; 81001; 82947; 83735; 84484; 85025; 93005; 99284

== ENCOUNTER 2021-03-20 07:49 | Emergency (ER) | payer OTHER, SELFPAY ==
[2021-03-20 08:07] VITALS: BP 150/80; PULSE 80; RESP 16; TEMP 35.9; O2SAT 97; BMI 29.7
[2021-03-20] MEDS: Azithromycin 500 MG TABLET 2000 MG PO (10:21)
[2021-03-20] MEDS: Gentamicin Sulfate 80 MG/2 ML VIAL 240 MG IM (10:24)
[2021-03-20 10:55] LABS: CT PCR NOT DETECTED (Not Detect.); NG PCR NOT DETECTED (Not Detect.)
[2021-03-20 11:04] LABS: HBS Num1 32.69 mIU/mL (0-7.99); ~Hepatitis B Surface Antibody REACTIVE (Nonreactive)
--- NOTE | 2021-03-20 11:04 | ED_ITS ---
HPI - Male Genitourinary General Chief complaint: Urogenital-Male Stated complaint: Personal Time Seen by Provider: 03/20/21 09:45 Source: patient Mode of arrival: ambulatory Limitations: no limitations History of Present Illness HPI Narrative: 65-year-old male presents for 2 weeks of a feeling of itchiness inside his penis. No penile discharge. Patient has not had painful ejaculations, he reports that he normally has ?a lot of sperm? and recently he has had minimal sperm. Denies penile lesions. Denies fever. Patient has a penicillin allergy. No sore throat, no swollen glands. No dysuria Patient states he does not have a girlfriend, but sleeps with women and a ?clean house? he does not engage with prostitutes on the streets. Related Data Home Medications Medication Instructions Recorded Confirmed aspirin 81 mg tablet,delayed 81 mg PO DAILY 11/19/20 11/19/20 release metformin 1,000 mg tablet 1 tab PO BID 11/19/20 11/19/20 nicotine (polacrilex) 2 mg gum 1 mg PO Q2H PRN 11/19/20 11/19/20 prednisone 10 mg tablet 10 mg PO DAILY 11/19/20 11/19/20 risperidone 4 mg tablet 4 mg PO BEDTIME 11/19/20 11/19/20 sertraline 100 mg tablet 1.5 tab PO QAM 11/19/20 11/19/20 Previous Rx's Medication Instructions Recorded albuterol sulfate 90 mcg/actuation 2 puff INHALATION Q4-6H PRN #8.5 g 10/17/20 aerosol inhaler doxycycline monohydrate 100 mg 100 mg PO BID 10 Days #20 cap 10/17/20 capsule Allergies Allergy/AdvReac Type Severity Reaction Status Date / Time Penicillins [PENICILLINS] Allergy Severe FAINTED Verified 10/17/20 09:42 CHILD Review of Systems Constitutional: Constitutional: Denies body ache(s), Denies chills, Denies fatigue, Denies fever(s), Denies headache(s), Denies malaise and Denies weakness Eyes: Eyes: Denies diplopia ENT: Denies vertigo, Denies dizziness, Denies otalgia, Denies headache(s), Denies mouth pain, Denies post nasal drip, Denies sinus pain, Denies sinus pressure, Denies sore throat and Denies throat swelling Cardiovascular: Cardiovascular: Denies chest pain, Denies syncope, Denies leg edema, Denies lightheadedness, Denies Loss of Consciousness, Denies palpitations and Denies dyspnea Respiratory: Respiratory: Denies chest congestion, Denies cough and Denies dyspnea Genitourinary: Genitourinary: Denies hematospermia, Denies hematuria, Denies difficulty urinating, Denies difficulty with ejaculations, Denies erectile dysfunction, Denies genital lesions, Reports genital pain, Denies dysuria, Denies flank pain, Denies painful ejaculations, Denies penile discharge, Denies scrotal swelling, Denies testicular mass, Denies testicular pain, Denies urinary hesitancy, Denies urinary incontinence and Denies urinary urgency Comments: Itchiness inside urethra Musculoskeletal: Musculoskeletal: Reports no additional musculoskeletal complaints Neurologic: Denies confusion, Denies vertigo, Denies dizziness, Denies syncope, Denies headache(s) and Denies weakness Psychiatric: Psychiatric: Denies anxiety, Denies confusion and Denies depression Endocrine: Endocrine: Denies fatigue and Denies palpitations Allergic/Immunologic: Allergic/Immunologic: Denies throat swelling PMFSH Past Medical History Medical History Asthma Bladder cancer Diabetes [place] (hard of hearing) Social History Social History Alcohol intake: never Advance Directives: Yes Advance Directives Information Provided: Yes Advance Directives on File: No Physical Exam Vital Signs: Vital Signs: Last Vital Signs Temp 96.6 F L 03/20/21 08:07 Pulse 80 03/20/21 08:07 Resp 16 03/20/21 08:07 BP 150/80 H 03/20/21 08:07 Pulse Ox 97 03/20/21 08:07 Body Mass Index 29.7 Const: General: No confusion Nutritional Appearance: well nourished Orientation/consciousness: No confusion Limitations: no limitations HENMT: Head: Yes normal to inspection, Yes normocephalic and Yes atraumatic Ears: hearing grossly normal bilaterally, external ears normal, TM's normal bilaterally and EAC's normal General nose exam: Normal external nose present Face and sinus: Yes normal facial exam and Yes sinuses nontender Mouth: Normal oral and palatal mucosa present Throat: Yes posterior oropharynx normal Eyes: Conjunctivae: conjunctivae normal Pupils: Equal, round and reactive pupils present EOM: EOMs intact bilaterally Neck: Neck: Yes full ROM, Yes no lymphadenopathy and Yes supple Resp: Effort & Inspection: normal respiratory effort and able to speak in complete sentences Auscultation: clear to auscultation bilaterally, no crackles, no rales, no rhonchi and no wheezes Cardio: Rate: regular rate Rhythm: regular rhythm Heart sounds: S1 normal heart sound present and S2 normal heart sound present GI: Inspection: Yes normal to inspection Palpation (GI): Soft to palpation, nontender, no guarding and not rigid Percussion: Yes normal to percussion Auscultation: normal bowel sounds : Male General Exam: No Genital lesions present Penis: normal penis, circumcised, not erythematous, no nodules, no papules, no pustules, no vesicles, no paraphimosis, no phimosis, no swelling, no ulcerations and No Genital lesions present Meatus: meatus normal, no meatla discharge, No Blood at meatus present and No Erythema at meatus Scrotum: scrotum normal, not edematous, not erythematous and testes descended bilaterally Testes: testicular lie normal, epididymides normal, no testicular mass, no testicular swelling and no testicular tenderness Skin: General skin exam: no rashes or lesions noted Neuro: General: No confusion Cranial nerves: Yes Equal, round and reactive pupils present Extrem: General: Yes normal to inspection and Yes full ROM Psych: Appearance: grossly normal Affect: normal affect Attitude: cooperative Thought process: Normal thought process present Course Course Course Narrative: 65-year-old male who has had unprotected sex with sex workers, presents for 2 weeks of a sensation of itchiness inside his penis. On exam, patient has a normal genital exam, and no pain with testicle palpitation, no lesions rashes or swelling on his penis or testicles. Treated patient with gentamicin and azithromycin as patient is allergic to penicillin. Got gonorrhea chlamydia, HIV, hepatitis panel, syphilis labs. Consultation will avoid call him with lab results. Advised patient to practice safe sex and use condoms. Patient said he would not use condoms. Gave return precautions. Patient verbalized agreement and understanding of the plan. MDM - Male Genitourinary Lab Data Labs: Lab Results 03/20/21 03/20/21 Range/Units 08:21 10:14 Chlam trachomat DNA PCR NOT DETECTED (Not Detect.) Hep Bs Antigen Negative (Negative) Hep Bs Antibody REACTIVE (Nonreactive) Hep B Core Total Ab Nonreactive (Nonreactive) HIV 1&2 Ab/P24 Ag 4thGn Nonreactive (Nonreactive) N.gonorrhoeae DNA (PCR) NOT DETECTED (Not Detect.) Discharge Plan Discharge Clinical Impression: Urethritis, STI (sexually transmitted infection) Patient Disposition: Home, Self-Care Instructions: Gonorrhea (ED), Nonspecific Urethritis in Men (ED) Additional Instructions: Please practice safe sex and use condoms. We will call you with the results of your blood work and your urine test. Had please return to emergency room if you have fevers, swelling in your groin, bumps or redness on your penis, or for any other new or concerning symptoms. Prescriptions: No Action doxycycline monohydrate 100 mg capsule 100 mg PO BID 10 Days Qty: 20 RF: 0 albuterol sulfate 90 mcg/actuation HFA aerosol inhaler 2 puff inhalation Q4-6H PRN (Reason: shortness of breath or wheezing) Qty: 8.5 RF: 0 nicotine (polacrilex) 2 mg gum 1 mg PO Q2H PRN (Reason: Nicotine Cravings) RF: 0 risperidone 4 mg tablet 4 mg PO BEDTIME RF: 0 sertraline 100 mg tablet 1.5 tab PO QAM RF: 0 aspirin 81 mg tablet,delayed release (DR/EC) 81 mg PO DAILY RF: 0 metformin 1,000 mg tablet 1 tab PO BID RF: 0 prednisone 10 mg tablet 10 mg PO DAILY RF: 0 Interventions: ED Discharge Assessment Last Done: 03/20/21 10:42 Discharge Date/Time: 03/20/21 10:43
[2021-03-20 11:06] LABS: HBc Num1 0.03 S/CO (0.00-0.79); HBsAGNum1 0.14 S/CO (0.00-0.99); HIV AB/AG Nonreactive (Nonreactive); HIV Num 1 0.07 S/CO (0.00-0.99); Hepatitis B Core Antibody Nonreactive (Nonreactive); Hepatitis B Surface Antigen Negative (Negative)
[2021-03-21 09:11] LABS: Syphilis Screen Nonreactive (Nonreactive)
[2021-03-24 15:11] LABS: HSV 1 IgM IFA Positive (Negative); HSV 2 IgM IFA Positive (Negative)
[2021-03-24 15:42] LABS: HSV 1 IgM Titer 1:40 (<1:20); HSV 2 IgM Titer 1:40 (<1:20)
== END 2021-03-20 10:43 | disposition home or self-care (01) ==
PROVIDERS: Physician Assistant; Emergency Provider Emergency Medicine Emergency Medical Services; PCP Internal Medicine
DX: N34.2 Other urethritis (principal); A60.9 Anogenital herpesviral infection, unspecified
CPT/HCPCS: 36415; 86695; 86696; 86704; 86706; 86780; 87340; 87389; 87491; 87591; 96372; 99283; 99284; J1580

== ENCOUNTER 2021-04-20 10:55 | Outpatient (REF) | payer OTHER, SELFPAY | END 2021-04-20 10:56 | disposition home or self-care (01) | LOC: HO.LAB 10:55 | PROVIDERS: PCP Internal Medicine; Visit Provider Internal Medicine | DX: Z20.822 Contact with and (suspected) exposure to COVID-19 (principal) | CPT/HCPCS: U0003; U0005 ==

== ENCOUNTER 2021-05-28 08:18 | Emergency (ER) | payer OTHER, SELFPAY ==
--- NOTE | 2021-05-28 | ECG_ITS ---
Test Reason : Chest Pain Blood Pressure : / mmHG Vent. Rate : 061 BPM Atrial Rate : 061 BPM P-R Int : 158 ms QRS Dur : 082 ms QT Int : 390 ms P-R-T Axes : 061 016 016 degrees QTc Int : 392 ms Normal sinus rhythm Normal ECG When compared with ECG of 19-NOV-2020 16:38, No significant change was found Referred By: Generic ED Physician Electronically Signed By:CHELSEY JACOBO MD
--- NOTE | ~2021-05-28 | XR_ITS ---
EXAMINATION: XR SHOULDER, LEFT CLINICAL INFORMATION: Left shoulder pain. COMPARISON: None TECHNIQUE: Two views of the left shoulder. FINDINGS: Mild left acromioclavicular degenerative joint changes are seen. There is no acute fracture or dislocation. The soft tissues are unremarkable. XR/XR shoulder LT min 2V IMPRESSION: Mild left acromioclavicular degenerative joint changes. No acute abnormality.
--- NOTE | ~2021-05-28 | XR_ITS ---
EXAMINATION: XR CERVICAL SPINE CLINICAL INFORMATION: Neck pain. COMPARISON: Cervical spine CT scan dated 11/19/2020. TECHNIQUE: 3 views of the cervical spine were obtained. FINDINGS: There is straightening of the normal cervical lordosis. Mild to moderate multilevel degenerative disc disease is seen most pronounced at C3-C4, C5-C6 and C6-C7. Minimal grade 1 retrolisthesis is seen at these levels as well. The vertebral bodies are intact is no acute fracture. The spinous processes are intact. The odontoid process is intact. The prevertebral soft tissues are unremarkable. XR/XR cervical spine 2V IMPRESSION: 1. Straightening of the normal cervical lordosis may be secondary to positioning and/or muscle spasm. 2. Mild to moderate multilevel spondylosis as detailed above without significant change.
--- NOTE | ~2021-05-28 | CT_ITS ---
EXAMINATION: CT HEAD WITHOUT CONTRAST CLINICAL INFORMATION: Headache. COMPARISON: 11/19/[address] scan. TECHNIQUE: Contiguous axial imaging was performed from the skull base to vertex without intravenous administration of contrast. Coronal and sagittal reformatted images were obtained. This CT examination was performed using dose optimization techniques as appropriate, variously including the following: *Automated exposure control *Adjustment of mA and/or kV according to patient size (this includes techniques or standardized protocols for targeted exams where dose is matched to indication/reason for exam; i.e. extremities or head) *Use of iterative reconstruction technique DLP: 678 mGy-cm FINDINGS: The cortical sulci are normal. The lateral ventricles are symmetrical. The third and fourth ventricles are in their normal midline position. The basilar and prepontine cisterns are unremarkable. There is no acute intra or extracerebral abnormality. There is no mass effect or midline shift. Sections through the bony calvarium are unremarkable. Mild to moderate mucosal thickening is seen in the paranasal sinuses with mild interval increase. Hypoaeration of the left mastoid air cells is again seen. Right mastoid air cell opacification has decreased. The bony orbits and orbital contents are unremarkable. CT/CT head/brain wo con IMPRESSION: 1. No acute intracranial pathology. 2. Mild to moderate pansinusitis representing mild interval worsening from the previous study. 3. Interval improvement in right mastoid opacification. Left mastoid hypoaeration without significant change.
[2021-05-28 08:30] VITALS: BP 153/83; PULSE 79; RESP 18; TEMP 36.7; O2SAT 99; BMI 29.8
--- NOTE | 2021-05-28 09:20 | ED.GENADULT ---
HPI - General Adult General Chief complaint: General Medical Stated complaint: lt shoulder, neck & head pain, dizziness Time Seen by Provider: 05/28/21 09:19 Source: patient Mode of arrival: ambulatory Limitations: no limitations History of Present Illness HPI narrative: 65-year-old male presents for left shoulder pain and headache that he has had for months. States he fell off his bed 2 months ago and hit his head. States he has had a headache in the back was had for 2 months. States he has neck pain and pain throughout his entire body. States he especially has pain in his left shoulder that radiates up into his left neck and his head. One month ago he had chest pain on the left side. He has been feeling dizzy. He has multiple complaints. Related Data Home Medications Medication Instructions Recorded Confirmed aspirin 81 mg tablet,delayed 81 mg PO DAILY 11/19/20 11/19/20 release metformin 1,000 mg tablet 1 tab PO BID 11/19/20 11/19/20 nicotine (polacrilex) 2 mg gum 1 mg PO Q2H PRN 11/19/20 11/19/20 prednisone 10 mg tablet 10 mg PO DAILY 11/19/20 11/19/20 risperidone 4 mg tablet 4 mg PO BEDTIME 11/19/20 11/19/20 sertraline 100 mg tablet 1.5 tab PO QAM 11/19/20 11/19/20 Previous Rx's Medication Instructions Recorded albuterol sulfate 90 mcg/actuation 2 puff INHALATION Q4-6H PRN #8.5 g 10/17/20 aerosol inhaler doxycycline monohydrate 100 mg 100 mg PO BID 10 Days #20 cap 10/17/20 capsule doxycycline hyclate 100 mg capsule 100 mg PO BID 10 Days #20 cap 05/28/21 ketorolac 10 mg tablet 10 mg PO Q6H 5 Days #20 tab 05/28/21 Allergies Allergy/AdvReac Type Severity Reaction Status Date / Time Penicillins [PENICILLINS] Allergy Severe FAINTED Verified 10/17/20 09:42 CHILD Review of Systems Constitutional: Constitutional: Reports body ache(s), Denies chills, Denies fatigue, Denies fever(s), Reports headache(s), Denies malaise and Denies weakness Eyes: Eyes: Denies change in vision and Denies diplopia ENT: Denies vertigo, Reports dizziness (not currntly), Denies otalgia, Reports headache(s), Denies mouth pain, Reports neck pain, Denies post nasal drip, Denies sinus pain, Denies sinus pressure, Denies sore throat and Denies throat swelling Cardiovascular: Cardiovascular: Denies chest pain, Denies syncope, Denies leg edema, Denies lightheadedness, Denies Loss of Consciousness, Denies palpitations and Denies dyspnea Respiratory: Respiratory: Denies chest congestion, Denies cough and Denies dyspnea Gastrointestinal: Gastrointestinal: Denies abdominal pain, Denies hematochezia, Denies constipation, Denies diarrhea and Denies vomiting Musculoskeletal: Musculoskeletal: Reports myalgias and Reports neck pain Comments: States his entire body hurts all over, history arthritis Integumentary/Breasts: Skin/Breast: Denies erythema and Denies rash Neurologic: Denies Abnormal speech present, Denies confusion, Denies vertigo, Reports dizziness (not currntly), Denies syncope, Reports headache(s), Denies Sensory deficit (Neuro) and Denies weakness Psychiatric: Psychiatric: Denies anxiety, Denies confusion and Denies depression Endocrine: Endocrine: Denies fatigue and Denies palpitations Allergic/Immunologic: Allergic/Immunologic: Denies throat swelling PMFSH Past Medical History Medical History Asthma Bladder cancer Diabetes [place] (hard of hearing) Social History Social History Alcohol intake: never Advance Directives: No Physical Exam Vital Signs: Vital Signs: Last Vital Signs Temp 97.7 F 05/28/21 11:43 Pulse 55 05/28/21 11:56 Resp 16 05/28/21 11:56 BP 139/77 05/28/21 11:56 Pulse Ox 97 05/28/21 11:56 Body Mass Index 29.8 Const: General: No confusion Nutritional Appearance: well nourished Orientation/consciousness: patient oriented x3 and No confusion Limitations: no limitations HENMT: Head: Yes normal to inspection, Yes normocephalic and Yes atraumatic Ears: hearing grossly normal bilaterally, external ears normal, TM's normal bilaterally and EAC's normal General nose exam: Normal external nose present Face and sinus: Yes normal facial exam and Yes sinuses nontender Mouth: Normal oral and palatal mucosa present Throat: Yes posterior oropharynx normal Eyes: Conjunctivae: conjunctivae normal Pupils: Equal, round and reactive pupils present EOM: EOMs intact bilaterally Neck: Neck: Yes full ROM, Yes no lymphadenopathy and Yes supple Resp: Effort & Inspection: normal respiratory effort and able to speak in complete sentences Auscultation: clear to auscultation bilaterally, no crackles, no rales, no rhonchi and no wheezes Cardio: Rate: regular rate Rhythm: regular rhythm Heart sounds: S1 normal heart sound present and S2 normal heart sound present GI: Inspection: Yes normal to inspection Palpation (GI): Soft to palpation, nontender, no guarding and not rigid Percussion: Yes normal to percussion Auscultation: normal bowel sounds Skin: General skin exam: no rashes or lesions noted Neuro: General: patient oriented x3 and No confusion Cranial nerves: Yes CN's II-XII intact bilaterally, Yes Facial sensation intact/muscles of mastication intact, Yes Equal, round and reactive pupils present, Yes Normal accommodation reflex present, Yes Bilaterally intact EOM present, Yes Nystagmus not present, Yes Normal facial strength present, Yes Midline tongue present, Yes Ability to bilaterally rotate head present and Yes Ability to bilaterally elevate shoulders present Cognition (Neuro): normal cognition Speech: No Abnormal speech present Gait exam (Neuro): Antalgic gait present Motor exam (neuro): 5/5 motor strength present throughout Sensory Exam: No Sensory deficit (Neuro) Deep tendon reflexes (DTR's): Right brachioradialis reflex intensity grade: 1+, Left brachioradialis reflex intensity grade: 1+, Right patellar reflex intensity grade: 1+ and Left patellar reflex intensity grade: 1+ Coordination: [id number] test normal Romberg Test: Negative Pupils: Normal pupillary reactivity/response: bilateral Extrem: Other: Tender to palpate and upper paraspinous muscles left side General: Yes normal to inspection and Yes full ROM Right upper extremity: normal to inspection, full ROM, normal capillary refill and shoulder/upper arm Details: normal to inspection, axillary nerve sensory function normal and normal ROM; Negative for no tenderness, no swelling and no crepitus; No no cyanosis and no edema Psych: Appearance: grossly normal Affect: normal affect Attitude: cooperative Thought process: Normal thought process present Course Course Course Narrative: 65-year-old male presents for headache for months, left shoulder pain for months. Patient has multiple complaints and is endorsing pain throughout his entire body that has been going on for months. On exam, patient has a benign neurological exam, patient has a limping gait that he says is due to arthritis. Patient is tender to palpate over his left upper paraspinous muscles near his neck. Patient's labs are significant for an elevated blood sugar of 253, otherwise labs including troponin are within normal limits. EKG is normal. X-ray of neck shows straightening of cervical lordosis indicating muscle spasm, with no change in spondylosis. X-ray left shoulder shows arthritis. CT shows pansinusitis. Gave Toradol for muscle spasm, will treat with doxycycline for sinusitis. Am giving fluids and will recheck point of care blood sugar. Medical Decision Making Lab Data Result diagrams: 05/28/21 11:15 05/28/21 11:15 Labs: Lab Results 05/28/21 05/28/21 05/28/21 Range/Units 11:15 11:15 11:15 WBC 6.6 (4.8-10.8) X10*3/uL RBC 4.91 (4.60-5.80) X10*6/uL Hgb 13.6 L (14.0-18.0) g/dl Hct 40.5 L (42-52) % MCV 82.5 (80-98) fL MCH 27.7 (27.0-33.0) pg MCHC 33.6 (31.0-36.0) g/dl RDW 13.1 (11.0-16.0) % Plt Count 221 (160-400) X10*3/uL MPV 9.4 (9.4-12.4) fL Immature Gran % (Auto) 0.3 (0.0-0.4) % Neut % (Auto) 60.0 (45-73) % Lymph % (Auto) 28.0 (20-40) % [place] % (Auto) 5.6 (2-11) % Eos % (Auto) 5.3 H (0-4) % Baso % (Auto) 0.8 (0-2) % Lymph # (Auto) 1.9 (1.2-4.9) X10*3/uL [place] # (Auto) 0.4 (0.1-1.2) X10*3/uL Eos # (Auto) 0.4 (0.0-0.4) X10*3/uL Baso # (Auto) 0.1 (0.0-0.2) X10*3/uL Abs Immat Gran (auto) 0.02 (0.00-0.03) X10*3/uL Absolute Neuts (auto) 4.0 (2.0-8.3) X10*3/uL Absolute Nucleated RBC 0.000 (0.0-0.012) X10*3/uL Nucleated RBC % (auto) 0.0 (0.0-0.2) /100WBC Sodium 137 (135-145) mmol/L Potassium 4.1 (3.3-5.1) mmol/L Chloride 106 (96-108) mmol/L Carbon Dioxide 21 L (22-29) mmol/L Anion Gap 14 (12-20) BUN 9 (9-16) mg/dL Creatinine 0.97 (0.5-1.4) mg/dL Estim Creat Clear Calc 78.1 Estimated GFR > 60 POC Glucose (60-115) mg/dL Random Glucose 253 H (60-115) mg/dL Calcium 9.1 (8.4-10.2) mg/dL Total Bilirubin 0.3 (0.0-1.0) mg/dL AST 10 (5-37) U/L ALT 16 (0-40) U/L Alkaline Phosphatase 117 (39-117) U/L Troponin I High Sens < 3.5 (<3.5-35.0) ng/L Total Protein 6.9 (6.5-8.0) g/dL Albumin 3.9 (3.5-5.0) g/dL 05/28/21 Range/Units 11:19 WBC (4.8-10.8) X10*3/uL RBC (4.60-5.80) X10*6/uL Hgb (14.0-18.0) g/dl Hct (42-52) % MCV (80-98) fL MCH (27.0-33.0) pg MCHC (31.0-36.0) g/dl RDW (11.0-16.0) % Plt Count (160-400) X10*3/uL MPV (9.4-12.4) fL Immature Gran % (Auto) (0.0-0.4) % Neut % (Auto) (45-73) % Lymph % (Auto) (20-40) % [place] % (Auto) (2-11) % Eos % (Auto) (0-4) % Baso % (Auto) (0-2) % Lymph # (Auto) (1.2-4.9) X10*3/uL [place] # (Auto) (0.1-1.2) X10*3/uL Eos # (Auto) (0.0-0.4) X10*3/uL Baso # (Auto) (0.0-0.2) X10*3/uL Abs Immat Gran (auto) (0.00-0.03) X10*3/uL Absolute Neuts (auto) (2.0-8.3) X10*3/uL Absolute Nucleated RBC (0.0-0.012) X10*3/uL Nucleated RBC % (auto) (0.0-0.2) /100WBC Sodium (135-145) mmol/L Potassium (3.3-5.1) mmol/L Chloride (96-108) mmol/L Carbon Dioxide (22-29) mmol/L Anion Gap (12-20) BUN (9-16) mg/dL Creatinine (0.5-1.4) mg/dL Estim Creat Clear Calc Estimated GFR POC Glucose 217 H (60-115) mg/dL Random Glucose (60-115) mg/dL Calcium (8.4-10.2) mg/dL Total Bilirubin (0.0-1.0) mg/dL AST (5-37) U/L ALT (0-40) U/L Alkaline Phosphatase (39-117) U/L Troponin I High Sens (<3.5-35.0) ng/L Total Protein (6.5-8.0) g/dL Albumin (3.5-5.0) g/dL ECG Data Interpretation: Sinus at its a rate of 64, QRS 86, MA 164, QTC 408, no ST elevations or depressions, EKG unchanged from 10/17/2020 Discharge Plan Discharge Clinical Impression: Acute bacterial sinusitis, Muscle spasm of shoulder region Patient Disposition: Home, Self-Care Instructions: Sinusitis (ED), Muscle Spasm (ED) Additional Instructions: Please call your primary care provider for follow-up appointment. I would like you to be seen in the next week. Your x-ray shows you have arthritis in her left shoulder, you have muscle spasm in the left side of her neck, your head CT shows a have a sinusitis. Your blood sugars elevated today but she did not take her medicine, please go home and take your medicine. I have prescribed an antibiotic for your sinus infection, please take that for 10 days. I have prescribed ketorolac for the muscle spasm. With ketorolac you may not take any ibuprofen, no Excedrin, no Aleve, no Motrin, nothing containing ibuprofen wire taking ketorolac. Please return to the emergency room if you have sudden severe headache, visual changes, chest pain, shortness of breath, or any other new or concerning symptoms. Prescriptions: New doxycycline hyclate 100 mg capsule 100 mg PO BID 10 Days Qty: 20 RF: 0 ketorolac 10 mg tablet 10 mg PO Q6H 5 Days Qty: 20 RF: 0 No Action doxycycline monohydrate 100 mg capsule 100 mg PO BID 10 Days Qty: 20 RF: 0 albuterol sulfate 90 mcg/actuation HFA aerosol inhaler 2 puff inhalation Q4-6H PRN (Reason: shortness of breath or wheezing) Qty: 8.5 RF: 0 nicotine (polacrilex) 2 mg gum 1 mg PO Q2H PRN (Reason: Nicotine Cravings) RF: 0 risperidone 4 mg tablet 4 mg PO BEDTIME RF: 0 sertraline 100 mg tablet 1.5 tab PO QAM RF: 0 aspirin 81 mg tablet,delayed release (DR/EC) 81 mg PO DAILY RF: 0 metformin 1,000 mg tablet 1 tab PO BID RF: 0 prednisone 10 mg tablet 10 mg PO DAILY RF: 0
--- NOTE | 2021-05-28 10:30 | PC.NURSE ---
pt alert and oriented x4, b/p 148/119, pt states he is on b/p medication but did not take them this morning. pt's reports he is IDD but did check his blood sugar this morning. POC checked in ed 217, ed provider caring for pt was notified by this senior mortgage underwriter. pt a asymptomatic. denies headache/dizziness. pt's chief complaint is full body pain that started months ago. he reports that he has arthritis and has a upcoming appointment to get shots. pt denies n/v/d/no contact with anyone sick.
[2021-05-28 11:18] LABS: MANUAL DIFF FLAG NO
[2021-05-28 11:21] LABS: Basophils Absolute Auto 0.1 X10*3/uL (0.0-0.2); Basophils Percent Auto 0.8 % (0-2); Eosinophils Absolute Auto 0.4 X10*3/uL (0.0-0.4); Eosinophils Percent Auto 5.3 % (0-4); Hematocrit 40.5 % (42-52); Hemoglobin 13.6 g/dl (14.0-18.0); Imm Gran Abs Auto 0.02 X10*3/uL (0.00-0.03); Imm Gran Pct Auto 0.3 % (0.0-0.4); Lymphocytes Absolute Auto 1.9 X10*3/uL (1.2-4.9); Mean Corpuscular HGB Conc 33.6 g/dl (31.0-36.0); Mean Corpuscular Hemoglobin 27.7 pg (27.0-33.0); Mean Corpuscular Volume 82.5 fL (80-98); Mean Platelet Volume 9.4 fL (9.4-12.4); Monocytes Absolute Auto 0.4 X10*3/uL (0.1-1.2); Monocytes Percent Auto 5.6 % (2-11); Platelet Count 221 X10*3/uL (160-400); Red Blood Count 4.91 X10*6/uL (4.60-5.80); Red Cell Distribution Width 13.1 % (11.0-16.0); White Blood Count 6.6 X10*3/uL (4.8-10.8)
[2021-05-28 11:23] LABS: Glucose, Whole Blood 217 mg/dL (60-115)
[2021-05-28] MEDS: Acetaminophen 325 MG TABLET 975 MG PO (11:26)
[2021-05-28 11:39] LABS: Troponin-I High Sensitivity < 3.5 ng/L (<3.5-35.0)
[2021-05-28 11:40] LABS: Alanine Aminotransferase 16 U/L (0-40); Albumin Level 3.9 g/dL (3.5-5.0); Alkaline Phosphatase 117 U/L (39-117); Anion Gap 14 (12-20); Aspartate Amino Transferase 10 U/L (5-37); Bilirubin Total 0.3 mg/dL (0.0-1.0); Blood Urea Nitrogen 9 mg/dL (9-16); Calcium 9.1 mg/dL (8.4-10.2); Carbon Dioxide 21 mmol/L (22-29); Chloride 106 mmol/L (96-108); Creatinine Clr Calc Pharmacy 78.1; Estimated Glomerular Filt Rate > 60; Glucose Random 253 mg/dL (60-115); Potassium 4.1 mmol/L (3.3-5.1); Sodium 137 mmol/L (135-145); Total Protein 6.9 g/dL (6.5-8.0)
[2021-05-28] MEDS: 0.9 % Sodium Chloride 1,000 ML 999 ML IV (11:42)
[2021-05-28 11:43] VITALS: BP 151/78; PULSE 56; RESP 16; TEMP 36.5; O2SAT 98
[2021-05-28 11:56] VITALS: BP 139/77; PULSE 55; RESP 16; O2SAT 97
[2021-05-28] MEDS: Ketorolac Tromethamine 15 MG/ML VIAL IVPUSH (12:54)
[2021-05-28 12:58] LABS: Glucose, Whole Blood 204 mg/dL (60-115)
[2021-05-28 13:22] VITALS: BP 163/88; PULSE 55; O2SAT 97
== END 2021-05-28 13:24 | disposition home or self-care (01) ==
PROVIDERS: Physician Assistant; Emergency Provider Student in an Organized Health Care Education/Training Program; PCP Internal Medicine
DX: J01.90 Acute sinusitis, unspecified (principal); M54.2 Cervicalgia; M62.838 Other muscle spasm; R51.9 Headache, unspecified; M25.512 Pain in left shoulder; Z79.899 Other long term (current) drug therapy
CPT/HCPCS: 36415; 70450; 72040; 73030; 80053; 82947; 84484; 85025; 93005; 96361; 96374; 99284; J1885

== ENCOUNTER 2021-11-02 10:22 | Emergency (ER) | payer OTHER, SELFPAY ==
--- NOTE | ~2021-11-02 | CT_ITS ---
EXAMINATION: CT BRAIN AND CT CERVICAL SPINE WITHOUT CONTRAST. CLINICAL INFORMATION: Pain. No trauma COMPARISON: None TECHNIQUE: 5 mm thin axial and reformatted 2 mm thin sagittal and coronal images of brain were obtained. 3 mm thin axial and reformatted 2 mm thin sagittal and coronal images of cervical spine were obtained without contrast. DLP 1216. FINDINGS: BRAIN: There is no acute intra-axial, extra-axial bleed, masses or midline shift. There is no acute infarction evolution. There is no edema. The lateral ventricles are symmetrical in size and configuration without enlargement. Bone windows reveal no calvarial abnormality. There is no scalp soft tissue abnormality. There is mild mucoperiosteal thickening involving bilateral ethmoid and right frontal sinus. Rest of the paranasal sinuses and mastoid air cells are well-aerated. CERVICAL SPINE: There is mild straightening of cervical lordosis. There is loss of C3-C4, C5-C6 and C6-C7 disc heights with mild ventral and posterior spondylosis. There is no visible acute fracture, dislocation or subluxation seen. The craniovertebral junction and the C1-C2 alignment is normal. There is moderate bilateral C4-C5 facet joint arthropathy and hypertrophy is noted. Mild uncovertebral hypertrophic changes C3-C4 disc level results in bilateral neural foraminal narrowing. CT/CT head/brain wo con IMPRESSION: No acute intracranial process seen. Degenerative disc changes C3-C4 and C5-C6 disc levels with spondylosis. Bilateral narrowing of C4-C5 neural foramina from uncovertebral hypertrophic changes. No visible acute fracture or dislocation seen.
--- NOTE | ~2021-11-02 | CT_ITS ---
EXAMINATION: CT BRAIN AND CT CERVICAL SPINE WITHOUT CONTRAST. CLINICAL INFORMATION: Pain. No trauma COMPARISON: None TECHNIQUE: 5 mm thin axial and reformatted 2 mm thin sagittal and coronal images of brain were obtained. 3 mm thin axial and reformatted 2 mm thin sagittal and coronal images of cervical spine were obtained without contrast. DLP 1216. FINDINGS: BRAIN: There is no acute intra-axial, extra-axial bleed, masses or midline shift. There is no acute infarction evolution. There is no edema. The lateral ventricles are symmetrical in size and configuration without enlargement. Bone windows reveal no calvarial abnormality. There is no scalp soft tissue abnormality. There is mild mucoperiosteal thickening involving bilateral ethmoid and right frontal sinus. Rest of the paranasal sinuses and mastoid air cells are well-aerated. CERVICAL SPINE: There is mild straightening of cervical lordosis. There is loss of C3-C4, C5-C6 and C6-C7 disc heights with mild ventral and posterior spondylosis. There is no visible acute fracture, dislocation or subluxation seen. The craniovertebral junction and the C1-C2 alignment is normal. There is moderate bilateral C4-C5 facet joint arthropathy and hypertrophy is noted. Mild uncovertebral hypertrophic changes C3-C4 disc level results in bilateral neural foraminal narrowing. CT/CT cervical spine wo con IMPRESSION: No acute intracranial process seen. Degenerative disc changes C3-C4 and C5-C6 disc levels with spondylosis. Bilateral narrowing of C4-C5 neural foramina from uncovertebral hypertrophic changes. No visible acute fracture or dislocation seen.
[2021-11-02 10:32] VITALS: BP 120/87; PULSE 86; RESP 20; TEMP 36.5; O2SAT 98; BMI 29.0
--- NOTE | 2021-11-02 11:28 | ED_ITS ---
HPI - Headache General Chief Complaint: Headache Stated Complaint: Body aches Time Seen by Provider: 11/02/21 10:41 Source: patient Mode of arrival: ambulatory Limitations: no limitations History of Present Illness HPI Narrative: 65 yo male with history of NIDDM, HTN, HLD, asthma, RA here with complaints of DEE/neck pain >1 yr after having a fall out his bed with head strike. Seen after initial head strike and had negative CT head/CT cervical spine. Intermittent pain since then. Takes OTC motrin/APAP with continued symptoms. Is worsened with head movement. Patient tells me yesterday he walked into a physical therapy office and got a business card from them. He tells me they told him to call his primary care doctor for referral but he has not yet. Patient denies any associated dizziness, vision changes, nausea, vomiting, weakness, paresthesia of the extremities. Related Data Home Medications Medication Instructions Recorded Confirmed aspirin 81 mg tablet,delayed 81 mg PO DAILY 11/19/20 11/19/20 release metformin 1,000 mg tablet 1 tab PO BID 11/19/20 11/19/20 nicotine (polacrilex) 2 mg gum 1 mg PO Q2H PRN 11/19/20 11/19/20 prednisone 10 mg tablet 10 mg PO DAILY 11/19/20 11/19/20 risperidone 4 mg tablet 4 mg PO BEDTIME 11/19/20 11/19/20 sertraline 100 mg tablet 1.5 tab PO QAM 11/19/20 11/19/20 Previous Rx's Medication Instructions Recorded albuterol sulfate 90 mcg/actuation 2 puff INHALATION Q4-6H PRN #8.5 g 10/17/20 aerosol inhaler doxycycline monohydrate 100 mg 100 mg PO BID 10 Days #20 cap 10/17/20 capsule doxycycline hyclate 100 mg capsule 100 mg PO BID 10 Days #20 cap 05/28/21 ketorolac 10 mg tablet 10 mg PO Q6H 5 Days #20 tab 05/28/21 cyclobenzaprine 10 mg tablet 10 mg PO TID PRN #10 tab 11/02/21 Allergies Allergy/AdvReac Type Severity Reaction Status Date / Time Penicillins [PENICILLINS] Allergy Severe FAINTED Verified 11/02/21 10:32 CHILD Review of Systems Review of Systems: Yes all other systems are reviewed and are negative Constitutional: Constitutional: Reports no additional constitutional complaints, Denies body ache(s), Denies chills, Denies fever(s), Reports headache(s) and Denies weakness Eyes: Eyes: Reports no additional eye complaints and Denies change in vision ENT: Reports system reviewed and no additional complaints, except as documented, Denies dizziness, Reports headache(s), Denies nasal congestion, Denies nasal discharge and Reports neck pain Cardiovascular: Cardiovascular: Reports no additional cardiovascular complaints, Denies chest pain, Denies leg edema and Denies dyspnea Respiratory: Respiratory: Reports no additional respiratory complaints, Denies cough and Denies dyspnea Gastrointestinal: Gastrointestinal: Reports no additional gastrointestinal complaints, Denies abdominal pain, Denies diarrhea, Denies nausea and Denies vomiting Genitourinary: Genitourinary: Denies urinary incontinence Musculoskeletal: Musculoskeletal: Reports no additional musculoskeletal complaints, Denies back pain, Denies arthralgias, Denies joint swelling, Reports neck pain, Denies numbness and Denies tingling Integumentary/Breasts: Skin/Breast: Reports system reviewed and no additional complaints, except as docu and Denies rash Neurologic: Reports system reviewed and no additional complaints, except as documented, Denies Abnormal speech present, Denies dizziness, Reports headache(s), Denies numbness, Denies tingling and Denies weakness PMF Past Medical History Attestation statement: The following information was validated with the patient. Source: old records reviewed and nursing notes reviewed Medical History Asthma Bladder cancer Diabetes [place] (hard of hearing) Social History Social History Alcohol intake: never Advance Directives: No Advance Directives Information Provided: Yes Physical Exam Vital Signs: Vital Signs: Last Vital Signs Temp 97.7 F 11/02/21 10:32 Pulse 66 11/02/21 11:54 Resp 18 11/02/21 11:54 BP 139/81 11/02/21 11:54 Pulse Ox 97 11/02/21 11:54 BMI result Body Mass Index 29.0 Const: General: cooperative, healthy appearing, comfortable and no acute distress Orientation/consciousness: patient oriented x3 Limitations: no l imitations HEENT: Head: Yes normal to inspection Ears: hearing grossly normal bilaterally and TM's normal bilaterally General nose exam: Normal external nose present Face and sinus: Yes normal facial exam Mouth: Normal oral and palatal mucosa present Throat: Yes posterior oropharynx normal, Yes tonsils normal and Yes uvula midline Eyes: General: appearance normal, both eyes and all related structures Pupils: Equal, round and reactive pupils present Neck: Other: Cervical midline tenderness with no step-offs or deformities Neck: Yes normal visual inspection, Yes full ROM, Yes no lymphadenopathy and Yes no meningeal signs Chest: Chest palpation & inspection: normal inspection of the chest Resp: Effort & Inspection: normal respiratory effort Auscultation: clear to auscultation bilaterally Cardio: Rate: regular rate Rhythm: regular rhythm Peripheral pulses: Peripheral pulses 2+ throughout GI: Inspection: Yes normal to inspection Palpation (GI): Soft to palpation and nontender Auscultation: normal bowel sounds Back/Spine/Pelvis: Thoracic/Lumbar Spine: thoracic and lumbar spine normal to inspection Skin: General skin exam: no rashes or lesions noted Neuro: General: patient oriented x3, no meningeal signs, no focal motor deficits and normal sensation to monofilament Cranial nerves: Yes CN's II-XII intact bilaterally, Yes Equal, round and reactive pupils present, Yes Bilaterally intact EOM present, Yes Nystagmus not present, Yes Normal facial strength present and Yes Midline tongue present Cognition (Neuro): normal cognition Speech: No Abnormal speech present Gait exam (Neuro): Normal ga it present Motor exam (neuro): 5/5 motor strength present throughout Sensory Exam: Normal double simultaneous stimulation for sensation Coordination: [id number] test normal, [id number] test normal and tandem gait normal Extrem: General: Yes normal to inspection Course Course Course Narrative: 65 year old male here with persistent head and neck pain after a fall 1 year ago. No neurological deficits or red flag symptoms. Will check CT head and neck. 1345-CT head is negative for any acute intracranial process. CT cervical spine shows degenerative changes. I reviewed this with the patient. On exam he has bilateral musclar spasm worsened with movement of the head side to side. No UE weakness/paresthesias. Likely MS. Will add low-dose muscle relaxant and re commend the patient follow-up with his primary care doctor. Reviewed worrisome signs and symptoms of when to return to the emergency department. Comfortable discharge home. [facility] - Headache Medical Records Attestation: I reviewed the patient's medical records. Lab Data Attestation: I reviewed the patient's lab results. Imaging Data Ct head/neck: Attestation: I personally reviewed and interpreted this imaging study as follows: Radiologist's impression: FINDINGS: BRAIN: There is no acute intra-axial, extra-axial bleed, masses or midline shift. There is no acute infarction evolution. There is no edema. The lateral ventricles are symmetrical in size and configuration without enlargement. Bone windows reveal no calvarial abnormality. There is no scalp soft tissue abnormality. There is mild mucoperiosteal thickening involving bilateral ethmoid and right frontal sinus. Rest of the paranasal sinuses and mastoid air cells are well-aerated. CERVICAL SPINE: There is mild straightening of cervical lordosis. There is loss of C3-C4, C5-C6 and C6-C7 disc heights with mild ventral and posterior spondylosis. There is no visible acute fracture, dislocation or subluxation seen. The craniovertebral junction and the C1-C2 alignment is normal. There is moderate bilateral C4-C5 facet joint arthropathy and hypertrophy is noted. Mild uncovertebral hypertrophic changes C3-C4 disc level results in bilateral neural foraminal narrowing. CT/CT head/brain wo con IMPRESSION: No acute intracranial process seen. ? Degenerative disc changes C3-C4 and C5-C6 disc levels with spondylosis. Bilateral narrowing of C4-C5 neural foramina from uncovertebral hypertrophic changes. No visible acute fracture or dislocation seen.? Discharge Plan Discharge Clinical Impression: Tension headache, Cervical strain Patient Disposition: Home, Self-Care Instructions: Cervical Strain (DC), Tension Headache (ED) Additional Instructions: Your CT scan shows some degenerative changes Heat to the area Gentle stretching Follow-up with the primary care doctor for a physical therapy referral Prescriptions: New cyclobenzaprine 10 mg tablet 10 mg PO TID PRN (Reason: muscle spasm) Qty: 10 0RF No Action doxycycline monohydrate 100 mg capsule 100 mg PO BID 10 Days Qty: 20 0RF albuterol sulfate 90 mcg/actuation HFA aerosol inhaler 2 puff inhalation Q4-6H PRN (Reason: shortness of breath or wheezing) Qty: 8.5 0RF nicotine (polacrilex) 2 mg gum 1 mg PO Q2H PRN (Reason: Nicotine Cravings) 0RF risperidone 4 mg tablet 4 mg PO BEDTIME 0RF sertraline 100 mg tablet 1.5 tab PO QAM 0RF aspirin 81 mg tablet,delayed release (DR/EC) 81 mg PO DAILY 0RF metformin 1,000 mg tablet 1 tab PO BID 0RF prednisone 10 mg tablet 10 mg PO DAILY 0RF doxycycline hyclate 100 mg capsule 100 mg PO BID 10 Days Qty: 20 0RF ketorolac 10 mg tablet 10 mg PO Q6H 5 Days Qty: 20 0RF Referrals: Catie Hong MD [Primary Care Provider] - 5 days Interventions: ED Discharge Assessment Last Done: 11/02/21 13:23 Discharge Date/Time: 11/02/21 13:23
[2021-11-02 11:54] VITALS: BP 139/81; PULSE 66; RESP 18; O2SAT 97
== END 2021-11-02 13:23 | disposition home or self-care (01) ==
PROVIDERS: Emergency Provider Emergency Medicine; PCP Internal Medicine
DX: S16.1XXA Strain of muscle, fascia and tendon at neck level, initial encounter (principal); W06.XXXA Fall from bed, initial encounter; R51.9 Headache, unspecified; E11.9 Type 2 diabetes mellitus without complications; I10 Essential (primary) hypertension; E78.5 Hyperlipidemia, unspecified; Y93.84 Activity, sleeping; Y92.9 Unspecified place or not applicable; Y99.9 Unspecified external cause status
CPT/HCPCS: 70450; 72125; 99283; 99284

== ENCOUNTER 2022-01-12 08:50 | Emergency (ER) | payer OTHER, SELFPAY ==
[2022-01-12 08:57] VITALS: BP 143/81; PULSE 77; RESP 19; TEMP 36.1; O2SAT 98; BMI 29.0
--- NOTE | 2022-01-12 09:17 | ED.BACK ---
HPI - Back Pain/Injury General Chief Complaint: Back Pain/Injury Stated Complaint: lower back pain/lower abd pain Time Seen by Provider: 01/12/22 09:17 Source: patient Mode of arrival: ambulatory Limitations: no limitations History of Present Illness HPI Narrative: 66 y/o male presents to the ER for evaluation of acute on chronic low back pain. He states he has had this pain on/off for years and it comes and goes, usually every few months. He denies any new injury or trauma. It started a few days ago and has not gotten any better with Tylenol. He also took 2 pills from his neighbor but they did not help either, he did not know what they were. He reports the pain is in his right lower back, aching and spasming, radiates into the right groin. No testicular pain. No urinary symptoms. No weakness or numbness in the leg. He is ambulatory and walked to the ER today. MD elicited complaint: back pain Pertinent past history: prior back pain Onset (ago): day(s) Timing: constant Severity: moderate Similar Symptoms Previously: Yes Quality: stabbing and aching Location: right lower back Radiation: groin, buttocks and right upper leg Exacerbating factors: movement Relieving factors: none Context: unknown Associated symptoms: difficulty walking Work related injury: No Related Data Home Medications Medication Instructions Recorded Confirmed aspirin 81 mg tablet,delayed 81 mg PO DAILY 11/19/20 11/19/20 release metformin 1,000 mg tablet 1 tab PO BID 11/19/20 11/19/20 nicotine (polacrilex) 2 mg gum 1 mg PO Q2H PRN 11/19/20 11/19/20 prednisone 10 mg tablet 10 mg PO DAILY 11/19/20 11/19/20 risperidone 4 mg tablet 4 mg PO BEDTIME 11/19/20 11/19/20 sertraline 100 mg tablet 1.5 tab PO QAM 11/19/20 11/19/20 Previous Rx's Medication Instructions Recorded albuterol sulfate 90 mcg/actuation 2 puff INHALATION Q4-6H PRN #8.5 g 10/17/20 aerosol inhaler doxycycline monohydrate 100 mg 100 mg PO BID 10 Days #20 cap 10/17/20 capsule doxycycline hyclate 100 mg capsule 100 mg PO BID 10 Days #20 cap 05/28/21 ketorolac 10 mg tablet 10 mg PO Q6H 5 Days #20 tab 05/28/21 cyclobenzaprine 10 mg tablet 10 mg PO TID PRN #10 tab 11/02/21 cyclobenzaprine 10 mg tablet 10 mg PO TID PRN #10 tab 01/12/22 ibuprofen 600 mg tablet 600 mg PO Q8H PRN #7 tab 01/12/22 lidocaine 5 % topical patch 1 patch TOPICAL DAILY #15 ea 01/12/22 Allergies Allergy/AdvReac Type Severity Reaction Status Date / Time Penicillins [PENICILLINS] Allergy Severe FAINTED Verified 11/02/21 10:32 CHILD Review of Systems Review of Systems: Constitutional: No Fever, No Chills ENT/Mouth: No sore throat, No Rhinorrhea Cardiovascular: No Chest Pain, No SOB Respiratory: No Cough, No Sputum Gastrointestinal: No Nausea, No Vomiting, No Diarrhea, No abdominal Pain Genitourinary: No Dysuria, No Urinary Frequency, No Hematuria Musculoskeletal: + joint pain, + Myalgias Skin: No Skin Lesions, No rash Neuro: No Weakness, No Numbness, No Dizziness, No Headache Heme/Lymph: No Bruising, No Lymphadenopathy Endocrine: No Polyuria, No Polydipsia [facility] Past Medical History Medical History Asthma Bladder cancer Diabetes [place] (hard of hearing) Social History Social History Alcohol intake: never Advance Directives: No Advance Directives Information Provided: No Physical Exam Vital Signs: Vital Signs: Last Vital Signs Temp 97 F 01/12/22 08:57 Pulse 77 01/12/22 08:57 Resp 19 01/12/22 08:57 BP 143/81 H 01/12/22 08:57 Pulse Ox 98 01/12/22 08:57 BMI result Body Mass Index 29.0 Appearance: Alert. Oriented X3. No acute distress. HEENT: normal inspection CVS: Normal heart rate and rhythm. Pulses normal. Respiratory: No respiratory distress. Skin: Skin warm and dry. Normal skin color. Normal skin turgor. No rashes. Back: normal inspection, tenderness of the right lower lumbar soft tissues with palpable spasm. no midline tenderness. negative straight leg raise test bilaterally. Extremities: normal inspection Neuro: Oriented X 3. No motor deficit. No sensory deficit. Steady gait Course Course Course Narrative: 66 yo male presents to the ER for evaluation of nontraumatic acute on chronic low back pain, worse on the right and radiates into groin, buttocks and intermittently the leg. He has no red flag symptoms of LBP. He is ambulatory. He has tenderness in the right lower lumbar area. Will treat for lumbar strain. He has an appointment with his PCP in 3 days and will follow up with her. Discharge Plan Discharge Clinical Impression: Strain of lumbar region Patient Disposition: Home, Self-Care Instructions: Low Back Strain (ED), Lower Back Exercises (ED) Additional Instructions: No bending, lifting or twisting. Use ice several times per day for 20 minutes at a time for the next 48 hours and then change to heat. Take medications as prescribed to help with pain and discomfort. Follow up with your Primary Care Doctor this week. If your pain worsens, if you develop new numbness, tingling, weakness, loss of function or incontinence call 911 or come back to the ER right away for evaluation. Prescriptions: New cyclobenzaprine 10 mg tablet 10 mg PO TID PRN (Reason: muscle spasm) Qty: 10 0RF ibuprofen 600 mg tablet 600 mg PO Q8H PRN (Reason: pain) Qty: 7 0RF lidocaine 5 % adhesive patch,medicated 1 patch topical DAILY Qty: 15 0RF Rx Instructions: leave on most painful area for up to 12 hrs No Action doxycycline monohydrate 100 mg capsule 100 mg PO BID 10 Days Qty: 20 0RF albuterol sulfate 90 mcg/actuation HFA aerosol inhaler 2 puff inhalation Q4-6H PRN (Reason: shortness of breath or wheezing) Qty: 8.5 0RF nicotine (polacrilex) 2 mg gum 1 mg PO Q2H PRN (Reason: Nicotine Cravings) 0RF risperidone 4 mg tablet 4 mg PO BEDTIME 0RF sertraline 100 mg tablet 1.5 tab PO QAM 0RF aspirin 81 mg tablet,delayed release (DR/EC) 81 mg PO DAILY 0RF metformin 1,000 mg tablet 1 tab PO BID 0RF prednisone 10 mg tablet 10 mg PO DAILY 0RF doxycycline hyclate 100 mg capsule 100 mg PO BID 10 Days Qty: 20 0RF ketorolac 10 mg tablet 10 mg PO Q6H 5 Days Qty: 20 0RF cyclobenzaprine 10 mg tablet 10 mg PO TID PRN (Reason: muscle spasm) Qty: 10 0RF
== END 2022-01-12 09:57 | disposition home or self-care (01) ==
PROVIDERS: Emergency Provider Student in an Organized Health Care Education/Training Program; PCP Internal Medicine
DX: M54.50 Low back pain, unspecified (principal); M79.604 Pain in right leg; Z79.899 Other long term (current) drug therapy
CPT/HCPCS: 99282

== ENCOUNTER 2022-02-14 11:01 | Emergency (ER) | payer OTHER, SELFPAY ==
--- NOTE | ~2022-02-14 | CT_ITS ---
EXAMINATION: CT HEAD WITHOUT CONTRAST CT CERVICAL SPINE WITHOUT CONTRAST CLINICAL INFORMATION: Hit by elevator door. COMPARISON: CT head and cervical spine from 11/02/2021. TECHNIQUE: Contiguous axial imaging was performed from the skull base to vertex without intravenous administration of contrast. Contiguous axial imaging was performed from the upper chest through the skull base without intravenous administration of contrast. Coronal and sagittal reformats were obtained at the acquisition workstation. This CT examination was performed using dose optimization techniques as appropriate, variously including the following: *Automated exposure control. *Adjustment of mA and/or kV according to patient size (this includes techniques or standardized protocols for targeted exams where dose is matched to indication/reason for exam; i.e. extremities or head). *Use of iterative reconstruction technique. DLP: 1187 mGy-cm FINDINGS: Head: There is no evidence of acute intracranial hemorrhage or edematous territorial infarction. A few foci of hypoattenuation in the periventricular and deep white matter are consistent with mild microangiopathy. Sheikh-white matter differentiation is preserved. The ventricles are normal in size and configuration. No evidence for obstructive hydrocephalus. No abnormal mass effect or midline shift. No extra-axial fluid collections. No acute soft tissue or osseous abnormalities. Moderate mucosal thickening of the paranasal sinuses. Polypoid opacification of the left middle meatus with partial extension into the nasal passage. Moderate right-sided middle ear and mastoid effusion. The left-sided mastoid is underdeveloped. Cervical Spine: The atlantooccipital and atlantoaxial articulations remain well aligned. Straightening of the normal cervical lordosis. Mild degenerative retrolisthesis of C5 on C6. Otherwise, there is anatomic alignment of the vertebral bodies and posterior elements. No evidence of acute fracture or subluxation. The vertebral body heights are maintained. Advanced degenerative disc disease at C3-C4, C5-C6, and C6-C7. Mild to moderate degenerative disc disease at all additional levels. Associated disc-osteophyte complex formation. Facet and uncovertebral joint arthropathy leads to osseous encroachment on the neural foramina from C3-C7. There is no prevertebral soft tissue swelling. The thyroid gland and remaining cervical soft tissues are normal in appearance. The lung apices demonstrate no abnormalities. CT/CT cervical spine wo con IMPRESSION: 1. No acute intracranial hemorrhage or edematous territorial infarction. Mild underlying microangiopathy. 2. No evidence of acute fracture or traumatic subluxation of the cervical spine. 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 3. Moderate sinonasal mucosal disease. Most notably, there is polypoid opacification of the left middle meatus with partial extension into the nasal passage. Recommend ENT follow-up.
[2022-02-14 11:38] VITALS: BP 125/80; PULSE 74; RESP 18; TEMP 36.6; O2SAT 98; BMI 29.0
[2022-02-14] MEDS: Acetaminophen 325 MG TABLET 975 MG PO (13:17)
[2022-02-14 14:17] VITALS: BP 151/76; PULSE 68; TEMP 36.4; O2SAT 97
--- NOTE | 2022-02-14 15:38 | ED_ITS ---
HPI - Head Injury General Chief complaint: Head Injury Stated complaint: hit head on elevator door, headache Time Seen by Provider: 02/14/22 13:00 Source: patient Mode of arrival: ambulatory Limitations: language barrier History of Present Illness HPI Narrative: 66-year-old Armenian-speaking male presents because 5 days ago he was hit in the head by an elevator door while exiting the elevator. He has had right-sided pain in his head. He is on aspirin. He did not sustain loss of consciousness. He has not been nauseous, no vomiting, no blurry vision, no neck pain. Patient has had a mild gradual headache that comes and goes. Related Data Home Medications Medication Instructions Recorded Confirmed aspirin 81 mg tablet,delayed 81 mg PO DAILY 11/19/20 11/19/20 release metformin 1,000 mg tablet 1 tab PO BID 11/19/20 11/19/20 nicotine (polacrilex) 2 mg gum 1 mg PO Q2H PRN Nicotine Cravings 11/19/20 11/19/20 prednisone 10 mg tablet 10 mg PO DAILY 11/19/20 11/19/20 risperidone 4 mg tablet 4 mg PO BEDTIME 11/19/20 11/19/20 sertraline 100 mg tablet 1.5 tab PO QAM 11/19/20 11/19/20 Previous Rx's Medication Instructions Recorded albuterol sulfate 90 mcg/actuation 2 puff inhalation Q4-6H PRN 10/17/20 aerosol inhaler shortness of breath or wheezing #8.5 grams doxycycline monohydrate 100 mg 100 mg PO BID 10 days #20 caps 10/17/20 capsule doxycycline hyclate 100 mg capsule 100 mg PO BID 10 days #20 caps 05/28/21 ketorolac 10 mg tablet 10 mg PO Q6H 5 days #20 tabs 05/28/21 cyclobenzaprine 10 mg tablet 10 mg PO TID PRN muscle spasm #10 11/02/21 tabs cyclobenzaprine 10 mg tablet 10 mg PO TID PRN muscle spasm #10 01/12/22 tabs ibuprofen 600 mg tablet 600 mg PO Q8H PRN pain #7 tabs 01/12/22 lidocaine 5 % topical patch 1 patch topical DAILY #15 ea 01/12/22 doxycycline hyclate 100 mg capsule 100 mg PO BID 10 days #20 caps 02/14/22 Allergies Allergy/AdvReac Type Severity Reaction Status Date / Time Penicillins [PENICILLINS] Allergy Severe FAINTED Verified 11/02/21 10:32 CHILD Review of Systems Constitutional: Constitutional: Denies body ache(s), Denies chills, Denies fatigue, Denies fever(s), Reports headache(s), Denies malaise and Denies weakness Eyes: Eyes: Denies diplopia ENT: Reports Normal hearing present, Denies vertigo, Denies dizziness, Denies otalgia, Reports headache(s), Denies mouth pain, Denies post nasal drip, Denies sinus pain, Denies sinus pressure, Denies sore throat and Denies throat swelling Cardiovascular: Cardiovascular: Denies chest pain, Denies syncope, Denies leg edema, Denies lightheadedness, Denies Loss of Consciousness, Denies palpitations and Denies dyspnea Respiratory: Respiratory: Denies chest congestion, Denies cough and Denies dyspnea Gastrointestinal: Gastrointestinal: Denies abdominal pain, Denies hematochezia, Denies constipation, Denies diarrhea, Denies nausea and Denies vomiting Musculoskeletal: Musculoskeletal: Reports no additional musculoskeletal complaints Neurologic: Reports Normal hearing present, Denies Abnormal speech present, Denies confusion, Denies vertigo, Denies dizziness, Denies syncope, Reports headache(s), Denies Sensory deficit (Neuro) and Denies weakness Psychiatric: Psychiatric: Denies anxiety, Denies confusion and Denies depression Endocrine: Endocrine: Denies fatigue and Denies palpitations Allergic/Immunologic: Allergic/Immunologic: Denies throat swelling PMFSH Past Medical History Medical History Asthma Bladder cancer Diabetes FALSE PASS (hard of hearing) Social History Social History Alcohol intake: never Advance Directives: Yes Advance Directives Information Provided: Yes Advance Directives on File: No Physical Exam Vital Signs: Vital Signs: Last Vital Signs Temp 97.5 F 02/14/22 14:17 Pulse 68 02/14/22 14:17 Resp 18 02/14/22 11:38 BP 151/76 H 02/14/22 14:17 Pulse Ox 97 02/14/22 14:17 O2 Del Method 02/14/22 14:17 BMI result Body Mass Index 29.0 Const: General: No confusion Nutritional Appearance: well nourished Orientation/consciousness: patient oriented x3 and No confusion Limitations: no limitations HEENT: Head: Yes normal to inspection, Yes normocephalic and Yes atraumatic Ears: hearing grossly normal bilaterally, external ears normal, TM's normal bilaterally and EAC's normal General nose exam: Normal external nose present Face and sinus: Yes normal facial exam and Yes sinuses nontender Mouth: Normal oral and palatal mucosa present Throat: Yes posterior oropharynx normal Eyes: Conjunctivae: conjunctivae normal Pupils: Equal, round and reactive pupils present EOM: EOMs intact bilaterally and No Nystagmus present Neck: Neck: Yes full ROM, Yes no lymphadenopathy and Yes supple Resp: Effort & Inspection: normal respiratory effort and able to speak in complete sentences Auscultation: clear to auscultation bilaterally, no crackles, no rales, no rhonchi and no wheezes Cardio: Rate: regular rate Rhythm: regular rhythm Heart sounds: S1 normal heart sound present and S2 normal heart sound present GI: Inspection: Yes normal to inspection Palpation (GI): Soft to palpation, nontender, no guarding and not rigid Percussion: Yes normal to percussion Auscultation: normal bowel sounds Skin: General skin exam: no rashes or lesions noted Neuro: General: patient oriented x3 and No confusion Cranial nerves: Yes CN's II-XII intact bilaterally, Yes Facial sensation intact/muscles of mastication intact, Yes Equal, round and reactive pupils present, Yes Normal accommodation reflex present, Yes Bilaterally intact EOM present, Yes Nystagmus not present, Yes Normal facial strength present, Yes Midline tongue present, Yes Normal hearing present, Yes Ability to bilaterally rotate head present, Yes Ability to bilaterally elevate shoulders present and No Nystagmus present Cognition (Neuro): normal cognition Speech: No Abnormal speech present Gait exam (Neuro): Normal gait present Motor exam (neuro): 5/5 motor strength present throughout and Pronator motor function not present Sensory Exam: No Sensory deficit (Neuro) Deep tendon reflexes (DTR's): Right patellar reflex intensity grade: 1+ and Left patellar reflex intensity grade: 1+ Coordination: [id number] test normal and [id number] test normal Pupils: Normal pupillary reactivity/response: bilateral Extrem: General: Yes normal to inspection and Yes full ROM Psych: Appearance: grossly normal Affect: normal affect Attitude: cooperative Thought process: Normal thought process present Course Course Course Narrative: 66-year-old male presents for right-sided headache after his head being struck by an elevator door 5 days ago. On exam, patient is well appearing, has stable vitals, normal neurological exam. Head CT shows moderate sinusitis and nasal polyps Referred patient to ENT, started patient on doxycycline for sinusitis. Gave return precautions, all patient's questions were answered, network security engineer was there for all interactions, patient is safe for discharge home Reevaluation(s) Reevaluation #1: CT/CT cervical spine wo con IMPRESSION: 1. No acute intracranial hemorrhage or edematous territorial infarction. Mild underlying microangiopathy. ? 2. No evidence of acute fracture or traumatic subluxation of the cervical spine. 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 ? 3. Moderate sinonasal mucosal disease. Most notably, there is polypoid opacification of the left middle meatus with partial extension into the nasal passage. Recommend ENT follow-up. ? Discharge Plan Discharge Clinical Impression: Closed head injury, Sinusitis, Nasal polyp Patient Disposition: Home, Self-Care Instructions: Sinusitis (ED), Head Injury (ED), Nasal Polyps (ED) Additional Instructions: You have a mild concussion, nasal polyps, and chronic sinusitis. I have prescribed antibiotics to your pharmacy, I also want you to call the ear nose throat doctor at the following number tomorrow [phone]. I have referred you to them, they should also be calling you. You need to have your nasal polyps and chronic sinusitis evaluated If you lose consciousness, have blurry vision, have chest pain, shortness of breath, nausea or vomiting, please return to the emergency room Tiene franklin conmoci?n cerebral leve, p?lipos nasales y sinusitis cr?andrew. Le he recetado antibi?ticos a alvarez farmacia, tambi?n quiero que llame al doctor de o?do, nariz y garganta al siguiente n?mireya ma?hilary [phone]. Te he referido a ellos, ellos tambi?n deber?an llamarte. Necesita que le eval?en marah p?lipos nasales y alvarez sinusitis cr?andrew Si pierde el conocimiento, tiene visi?n borrosa, dolor en el pecho, dificultad para respirar, n?useas o v?mitos, regrese a la mateo de emergencias. Prescriptions: New doxycycline hyclate 100 mg capsule 100 mg PO BID 10 Days Qty: 20 0RF No Action doxycycline monohydrate 100 mg capsule 100 mg PO BID 10 Days Qty: 20 0RF albuterol sulfate 90 mcg/actuation HFA aerosol inhaler 2 puff inhalation Q4-6H PRN (Reason: shortness of breath or wheezing) Qty: 8.5 0RF nicotine (polacrilex) 2 mg gum 1 mg PO Q2H PRN (Reason: Nicotine Cravings) risperidone 4 mg tablet 4 mg PO BEDTIME sertraline 100 mg tablet 1.5 tab PO QAM aspirin 81 mg tablet,delayed release (DR/EC) 81 mg PO DAILY metformin 1,000 mg tablet 1 tab PO BID prednisone 10 mg tablet 10 mg PO DAILY cyclobenzaprine 10 mg tablet 10 mg PO TID PRN (Reason: muscle spasm) Qty: 10 0RF ibuprofen 600 mg tablet 600 mg PO Q8H PRN (Reason: pain) Qty: 7 0RF lidocaine 5 % adhesive patch,medicated 1 patch topical DAILY Qty: 15 0RF Rx Instructions: leave on most painful area for up to 12 hrs doxycycline hyclate 100 mg capsule 100 mg PO BID 10 Days Qty: 20 0RF ketorolac 10 mg tablet 10 mg PO Q6H 5 Days Qty: 20 0RF cyclobenzaprine 10 mg tablet 10 mg PO TID PRN (Reason: muscle spasm) Qty: 10 0RF Referrals: Dominik Bass [Physician] - Interventions: ED Discharge Assessment Last Done: 02/14/22 16:02 Discharge Date/Time: 02/14/22 16:03 Print Language: Armenian
== END 2022-02-14 16:03 | disposition home or self-care (01) ==
PROVIDERS: Emergency Provider Emergency Medicine; PCP Emergency Medicine
DX: S09.90XA Unspecified injury of head, initial encounter (principal); J01.90 Acute sinusitis, unspecified; J33.9 Nasal polyp, unspecified; M54.2 Cervicalgia; W01.0XXA Fall on same level from slipping, tripping and stumbling without subsequent striking against object, initial encounter; Y93.9 Activity, unspecified; Y92.9 Unspecified place or not applicable; Y99.9 Unspecified external cause status; Z79.899 Other long term (current) drug therapy
CPT/HCPCS: 70450; 72125; 99284

== ENCOUNTER 2022-07-24 13:00 | Outpatient (RCR) | payer OTHER, SELFPAY ==
[2022-06-10 11:09] VITALS: BP 144/80; PULSE 57; O2SAT 98
== END 2022-08-29 07:22 | disposition home or self-care (01) ==
LOC: HO.PT 13:00
PROVIDERS: PCP Internal Medicine; Visit Provider Internal Medicine
DX: M54.2 Cervicalgia (principal)
CPT/HCPCS: 97110; 97140; 97162

== ENCOUNTER 2022-07-29 10:02 | Emergency (ER) | payer OTHER, SELFPAY ==
--- NOTE | ~2022-07-29 | XR_ITS ---
EXAMINATION: XR CHEST CLINICAL INFORMATION: Chest pain and cough. COMPARISON: Chest x-ray 11/19/2020 TECHNIQUE: 2 views of the chest were obtained. FINDINGS: The lungs are well expanded and clear. There are small nodules seen in the right lower lobe. Heart size and pulmonary vascularity is normal. There are punctate radiopaque metallic foreign bodies left posterior lateral chest wall. No bony abnormality seen. XR/XR chest 2V IMPRESSION: No acute process seen. Two small nodules right lower lobe new since previous study. Small radiopaque metallic foreign bodies left posterior lateral chest, stable.
[2022-07-29 10:23] VITALS: BP 150/88; PULSE 72; RESP 18; TEMP 36.6; O2SAT 96; BMI 36.6
[2022-07-29 10:43] LABS: Hematocrit 41.1 % (42.0-52.0); Mean Corpuscular HGB Conc 34.1 g/dl (31.0-36.0); Mean Corpuscular Hemoglobin 28.6 pg (27.0-33.0); Mean Corpuscular Volume 83.9 fL (80.0-98.0); Mean Platelet Volume 9.7 fL (9.4-12.4); Platelet Count 224 X10*3/uL (160-400); Red Cell Distribution Width 12.2 % (11.0-16.0); White Blood Count 9.2 X10*3/uL (4.8-10.8)
[2022-07-29 11:03] LABS: Anion Gap 11 (12-20); Blood Urea Nitrogen 10 mg/dL (9-16); Calcium 9.5 mg/dL (8.4-10.2); Carbon Dioxide 27 mmol/L (22-29); Chloride 105 mmol/L (96-108); Creatinine Clr Calc Pharmacy 77.3; Estimated Glomerular Filt Rate > 60; Glucose Random 192 mg/dL (60-115); Potassium 3.9 mmol/L (3.3-5.1); Sodium 139 mmol/L (135-145)
[2022-07-29 11:21] LABS: COVID-19 Test Negative (Negative); IDNOW Serial# 16C4AD1C
[2022-07-29 11:22] LABS: IDNOW Serial# BCCEAD1C; Influenza A Negative (Negative); Influenza B2 Negative (Negative)
--- NOTE | 2022-07-29 13:21 | ED_ITS ---
HPI - General Adult General Chief complaint: Headache Stated complaint: head pain Time Seen by Provider: 07/29/22 13:09 Source: patient Mode of arrival: ambulatory History of Present Illness HPI narrative: 66-year-old male with a past medical history asthma, bladder CA, diabetes, hard of hearing, presenting to the ED complaining of acute on chronic headache and neck pain x over 1 year s/p accident. Also reports I think I have the flu with diffuse body aches / myalgias, nasal congestion / rhinorrhea, and productive cough of yellow sputum. Reports associated SOB and chest discomfort with cough. Has been taking Tylenol with headache without relief. Headache not maximal in onset. Denies vision change/loss, abdominal pain, nausea/ vomiting, pedal edema, travel, sick contacts. Takes baby ASA Onset (ago): year(s) Related Data Home Medications Medication Instructions Recorded Confirmed aspirin 81 mg tablet,delayed 81 mg PO DAILY 11/19/20 11/19/20 release metformin 1,000 mg tablet 1 tab PO BID 11/19/20 11/19/20 nicotine (polacrilex) 2 mg gum 1 mg PO Q2H PRN Nicotine Cravings 11/19/20 11/19/20 prednisone 10 mg tablet 10 mg PO DAILY 11/19/20 11/19/20 risperidone 4 mg tablet 4 mg PO BEDTIME 11/19/20 11/19/20 sertraline 100 mg tablet 1.5 tab PO QAM 11/19/20 11/19/20 Previous Rx's Medication Instructions Recorded albuterol sulfate 90 mcg/actuation 2 puff inhalation Q4-6H PRN 10/17/20 aerosol inhaler shortness of breath or wheezing #8.5 grams doxycycline monohydrate 100 mg 100 mg PO BID 10 days #20 caps 10/17/20 capsule doxycycline hyclate 100 mg capsule 100 mg PO BID 10 days #20 caps 05/28/21 ketorolac 10 mg tablet 10 mg PO Q6H 5 days #20 tabs 05/28/21 cyclobenzaprine 10 mg tablet 10 mg PO TID PRN muscle spasm #10 11/02/21 tabs cyclobenzaprine 10 mg tablet 10 mg PO TID PRN muscle spasm #10 01/12/22 tabs ibuprofen 600 mg tablet 600 mg PO Q8H PRN pain #7 tabs 01/12/22 lidocaine 5 % topical patch 1 patch topical DAILY #15 ea 01/12/22 doxycycline hyclate 100 mg capsule 100 mg PO BID 10 days #20 caps 02/14/22 xfgdbraynh-wlycrvhekuwkm-luhfpzhq 1 cap PO Q4-6H PRN headache #14 07/29/22 50 mg-300 mg-40 mg capsule caps (Fioricet) Allergies Allergy/AdvReac Type Severity Reaction Status Date / Time Penicillins [PENICILLINS] Allergy Severe FAINTED Verified 11/02/21 10:32 CHILD Review of Systems Review of Systems: Constitutional: No Fever, No Chills, No Fatigue, No Malaise ENT/Mouth:No Ear Pain, + Nasal Congestion, No Hoarseness, No sore throat, + Rhinorrhea, No Swallowing Difficulty Eyes: No Eye Pain, No Swelling, No Redness, No Vision Changes Cardiovascular: + Chest Pain with cough, + SOB, No Orthopnea, No Edema, No Palpitations Respiratory: + Cough, + Sputum, No Wheezing, No Smoke Exposure, No Dyspnea Gastrointestinal: No Nausea, No Vomiting, No Diarrhea, No Constipation, No Abdominal pain Genitourinary: No Dysuria, No Urinary Frequency, No Hematuria, No Flank Pain, No Urinary Flow Changes Musculoskeletal: +joint pain, +Myalgias, No Joint Swelling Skin: No Skin Lesions, No rash Neuro: No Weakness, No Numbness, No Paresthesias, No Loss of Consciousness, No Dizziness, + Headache Yes all other systems are reviewed and are negative Constitutional: Constitutional: Reports as per [facility] Past Medical History Attestation statement: The following information was validated with the patient. Medical History Asthma Bladder cancer Diabetes [place] (hard of hearing) Social History Social History Alcohol intake: never Advance Directives: Yes Advance Directives Information Provided: Yes Advance Directives on File: No Physical Exam ED Vital Signs: Vital Signs - 24 hr 07/29/22 10:23 Temperature 98 F Pulse Rate 72 Respiratory Rate 18 Blood Pressure 150/88 H Pulse Oximetry 96 Oxygen Delivery Method Room Air BMI result Body Mass Index 36.6 Const General: cooperative, healthy appearing, comfortable and no acute distress Orientation/consciousness: patient oriented x3 Limitations: no limitations HENMT Head: Yes normal to inspection, Yes normocephalic and Yes atraumatic Ears: hearing grossly normal bilaterally General nose exam: Normal external nose present Face and sinus: Yes normal facial exam Mouth: oropharynx normal Throat: Yes posterior oropharynx normal, Yes tonsils normal, Yes uvula midline, No peritonsillar mass, No posterior oropharynx abnormal and No uvula laterally displaced Eyes General: appearance normal, both eyes and all related structures Pupils: Equal, round and reactive pupils present EOM: EOMs intact bilaterally Neck Neck: Yes normal visual inspection and Yes no meningeal signs Resp Effort & Inspection: normal respiratory effort, no respiratory distress and no stridor Auscultation: clear to auscultation bilaterally, no crackles, no rales and no rhonchi Cardio Rate: regular rate Heart sounds: S1 normal heart sound present and S2 normal heart sound present GI Inspection: Yes normal to inspection Palpation (GI): Soft to palpation, nontender, no guarding and not rigid Skin Rashes: no rashes Wounds: no wounds Neuro General: patient oriented x3, gait normal, tone normal, moves all extremities, no meningeal signs, no focal motor deficits and CN's II-XI intact bilaterally Cranial nerves: Yes CN's II-XII intact bilaterally and Yes Equal, round and reactive pupils present Gait exam (Neuro): Normal gait present Motor exam (neuro): 5/5 motor strength present throughout Extrem General: Yes normal to inspection and Yes no pedal edema Course Course Course Narrative: -1412-- no leukocytosis - COVID-19 and influenza negative -1615-- labs otherwise unremarkable. XR chest 2V IMPRESSION: No acute process seen. Two small nodules right lower lobe new since previous study. ? Small radiopaque metallic foreign bodies left posterior lateral chest, stable. On re-evaluation patient reports symptomatic improvement, states headache is now resolved. > Results discussed with patient including worrisome signs and symptoms and strict return precautions, and when to return to the emergency department. They verbalized understanding and feel safe for discharge at this time. Medications Administered Discontinued Medications Generic Name Dose Route Start Last Admin Trade Name Freq PRN Reason Stop Dose Admin Acetaminophen/Butalbital/Caffeine 2 tab 07/29/22 13:27 07/29/22 13:48 Butalb/Acetamin/Caff 50/325/40 Tablet PO 07/29/22 13:28 2 tab ONCE ONE Administration Medical Decision Making Medical Decision Making MDM Narrative: 66-year-old male with a past medical history asthma, bladder CA, diabetes, hard of hearing, presenting to the ED complaining of acute on chronic headache and neck pain x over 1 year s/p accident. Also reports I think I have the flu with diffuse body aches / myalgias, nasal congestion / rhinorrhea, and productive cough of yellow sputum. on exam vital signs stable, NAD, nontoxic appearing, no evidence of trauma, no focal neuro deficits, lungs CTA. Concern for migraine headache vs viral syndrome vs bronchitis/pneumonia. lower suspicion for ACS/ PE/CVA/SAH plan: EKG, labs, CXR, COVID 19/influenza/RSV testing, p.o. Fioricet Differential Diagnosis Differential Diagnoses: The differential diagnosis associated with the presentation includes Admission/Observation Consideration of admission/observation: Escalation of care including admission/observation considered Lab Data [facility] Lab Attestation statement: I reviewed the patient's lab results. Result Diagrams: 07/29/22 10:34 07/29/22 10:34 Labs: Lab Results 07/29/22 07/29/22 07/29/22 Range/Units 10:34 10:34 10:34 WBC 9.2 (4.8-10.8) X10*3/uL RBC 4.90 (4.60-5.80) X10*6/uL Hgb 14.0 (14.0-18.0) g/dl Hct 41.1 L (42.0-52.0) % MCV 83.9 (80.0-98.0) fL MCH 28.6 (27.0-33.0) pg MCHC 34.1 (31.0-36.0) g/dl RDW 12.2 (11.0-16.0) % Plt Count 224 (160-400) X10*3/uL MPV 9.7 (9.4-12.4) fL Absolute Nucleated RBC 0.000 (0.0-0.012) X10*3/uL Nucleated RBC % (auto) 0.0 (0.0-0.2) /100WBC Sodium 139 (135-145) mmol/L Potassium 3.9 (3.3-5.1) mmol/L Chloride 105 (96-108) mmol/L Carbon Dioxide 27 (22-29) mmol/L Anion Gap 11 L (12-20) BUN 10 (9-16) mg/dL Creatinine 0.93 (0.5-1.4) mg/dL Estim Creat Clear Calc 77.3 Estimated GFR > 60 Random Glucose 192 H (60-115) mg/dL Calcium 9.5 (8.4-10.2) mg/dL Magnesium 1.6 (1.6-2.6) mg/dL Total Bilirubin 0.7 (0.0-1.0) mg/dL Direct Bilirubin 0.3 (0.0-0.5) mg/dL AST 13 (5-37) U/L ALT 18 (0-40) U/L Alkaline Phosphatase 114 (39-117) U/L Troponin I High Sens (<3.5-35.0) ng/L Total Protein 6.5 (6.5-8.0) g/dL Albumin 3.9 (3.5-5.0) g/dL COVID-19 (MICHELE) (Negative) COVID-19 Clin Com Influenza Type A (FADI) Negative (Negative) Influenza Type B (FADI) Negative (Negative) Influenza A & B Note See Note 07/29/22 07/29/22 Range/Units 10:34 14:50 WBC (4.8-10.8) X10*3/uL RBC (4.60-5.80) X10*6/uL Hgb (14.0-18.0) g/dl Hct (42.0-52.0) % MCV (80.0-98.0) fL MCH (27.0-33.0) pg MCHC (31.0-36.0) g/dl RDW (11.0-16.0) % Plt Count (160-400) X10*3/uL MPV (9.4-12.4) fL Absolute Nucleated RBC (0.0-0.012) X10*3/uL Nucleated RBC % (auto) (0.0-0.2) /100WBC Sodium (135-145) mmol/L Potassium (3.3-5.1) mmol/L Chloride (96-108) mmol/L Carbon Dioxide (22-29) mmol/L Anion Gap (12-20) BUN (9-16) mg/dL Creatinine (0.5-1.4) mg/dL Estim Creat Clear Calc Estimated GFR Random Glucose (60-115) mg/dL Calcium (8.4-10.2) mg/dL Magnesium (1.6-2.6) mg/dL Total Bilirubin (0.0-1.0) mg/dL Direct Bilirubin (0.0-0.5) mg/dL AST (5-37) U/L ALT (0-40) U/L Alkaline Phosphatase (39-117) U/L Troponin I High Sens < 3.5 (<3.5-35.0) ng/L Total Protein (6.5-8.0) g/dL Albumin (3.5-5.0) g/dL COVID-19 (MICHELE) Negative (Negative) COVID-19 Clin Com See Note Influenza Type A (FADI) (Negative) Influenza Type B (FADI) (Negative) Influenza A & B Note Independent Interpretation I performed an independent interpretation of an: EKG and Plain X-Ray External Record Review prior ED record Prescription Management I considered prescription management with: Antibiotic Chronic Conditions Patient?s care impacted by: Diabetes and Cancer Discharge Plan Discharge Clinical Impression: Headache, Lung nodules Patient Disposition: Home, Self-Care Instructions: Acute Headache (ED) Additional Instructions: Your blood work is reassuring. You tested negative for COVID-19 and the flu. Your chest x-ray shows some lung nodules, please have close follow-up with her primary care doctor in regards to this. Fioricet is headache medication, take as needed, in addition take Tylenol and Motrin at home. Be aware Fioricet as Tylenol mixed in do not exceed 4 g in 1 day. If symptoms persist or worsen return to the ED Prescriptions: New sotbrxtagh-rdimovnezjrzr-wdsj [Fioricet] 50-300-40 mg capsule 1 cap PO Q4-6H PRN (Reason: headache) Qty: 14 0RF No Action doxycycline monohydrate 100 mg capsule 100 mg PO BID 10 Days Qty: 20 0RF albuterol sulfate 90 mcg/actuation HFA aerosol inhaler 2 puff inhalation Q4-6H PRN (Reason: shortness of breath or wheezing) Qty: 8.5 0RF nicotine (polacrilex) 2 mg gum 1 mg PO Q2H PRN (Reason: Nicotine Cravings) risperidone 4 mg tablet 4 mg PO BEDTIME sertraline 100 mg tablet 1.5 tab PO QAM aspirin 81 mg tablet,delayed release (DR/EC) 81 mg PO DAILY metformin 1,000 mg tablet 1 tab PO BID prednisone 10 mg tablet 10 mg PO DAILY cyclobenzaprine 10 mg tablet 10 mg PO TID PRN (Reason: muscle spasm) Qty: 10 0RF ibuprofen 600 mg tablet 600 mg PO Q8H PRN (Reason: pain) Qty: 7 0RF lidocaine 5 % adhesive patch,medicated 1 patch topical DAILY Qty: 15 0RF Rx Instructions: leave on most painful area for up to 12 hrs doxycycline hyclate 100 mg capsule 100 mg PO BID 10 Days Qty: 20 0RF doxycycline hyclate 100 mg capsule 100 mg PO BID 10 Days Qty: 20 0RF ketorolac 10 mg tablet 10 mg PO Q6H 5 Days Qty: 20 0RF cyclobenzaprine 10 mg tablet 10 mg PO TID PRN (Reason: muscle spasm) Qty: 10 0RF Referrals: Catie Hong MD [Primary Care Provider] - 1 week Interventions: ED Discharge Assessment Last Done: 07/29/22 16:28 Discharge Date/Time: 07/29/22 16:28
--- NOTE | 2022-07-29 13:27 | ECG_ITS ---
Test Reason : chest pain,sob Blood Pressure : / mmHG Vent. Rate : 061 BPM Atrial Rate : 061 BPM P-R Int : 172 ms QRS Dur : 088 ms QT Int : 402 ms P-R-T Axes : 060 026 020 degrees QTc Int : 404 ms Normal sinus rhythm Nonspecific T wave abnormality Abnormal ECG When compared with ECG of 28-MAY-2021 09:41, No significant change was found Referred By: Shira Goss Electronically Signed By:Spike Lunsford
[2022-07-29] MEDS: Butalb/Acetamin/Caff 50/325/40 TABLET 2 TAB PO (13:48)
[2022-07-29 14:28] LABS: Alanine Aminotransferase 18 U/L (0-40); Albumin Level 3.9 g/dL (3.5-5.0); Alkaline Phosphatase 114 U/L (39-117); Aspartate Amino Transferase 13 U/L (5-37); Bilirubin Direct 0.3 mg/dL (0.0-0.5); Bilirubin Total 0.7 mg/dL (0.0-1.0); Magnesium 1.6 mg/dL (1.6-2.6); Total Protein 6.5 g/dL (6.5-8.0)
[2022-07-29 15:25] LABS: Troponin-I High Sensitivity < 3.5 ng/L (<3.5-35.0)
== END 2022-07-29 16:28 | disposition home or self-care (01) ==
PROVIDERS: Physician Assistant; Emergency Provider Emergency Medicine; PCP Internal Medicine
DX: R51.9 Headache, unspecified (principal); M54.2 Cervicalgia; R91.8 Other nonspecific abnormal finding of lung field; R07.89 Other chest pain; Z20.822 Contact with and (suspected) exposure to COVID-19; Z79.899 Other long term (current) drug therapy
CPT/HCPCS: 36415; 71046; 80048; 80076; 83735; 84484; 85027; 87502; 87635; 93005; 99283

== ENCOUNTER 2022-10-10 13:04 | Outpatient (REF) | payer OTHER, SELFPAY ==
--- NOTE | ~2022-10-10 | CT_ITS ---
EXAMINATION: CT HEAD WITHOUT CONTRAST CLINICAL INFORMATION: Cervicogenic headaches. COMPARISON: None. TECHNIQUE: Contiguous axial imaging was performed from the skull base to vertex without intravenous administration of contrast. This CT examination was performed using dose optimization techniques as appropriate, variously including the following: *Automated exposure control *Adjustment of mA and/or kV according to patient size (this includes techniques or standardized protocols for targeted exams where dose is matched to indication/reason for exam; i.e. extremities or head) *Use of iterative reconstruction technique DLP: 648 mGy-cm. FINDINGS: There is no acute intra-axial, extra-axial bleed, masses or midline shift. There is no acute infarction in evolution. There is no edema. The lateral ventricles are symmetrical in size and configuration without enlargement. The kxts-su-ojskk matter differentiation is maintained normal. Bone windows reveal no calvarial abnormality. There is diffuse mucoperiosteal thickening bilateral paranasal sinuses. There is soft tissue density in bilateral middle ears and complete opacification of all mastoid sinuses consistent otomastoiditis. CT/CT head/brain wo IV con IMPRESSION: No acute intracranial process seen. Chronic pansinusitis. Chronic bilateral otomastoiditis.
== END 2022-10-10 13:05 | disposition home or self-care (01) ==
LOC: HO.CT 13:04
PROVIDERS: Visit Provider Internal Medicine
DX: G44.86 Cervicogenic headache (principal)
CPT/HCPCS: 70450

== ENCOUNTER 2023-01-14 10:25 | Emergency (ER) | payer OTHER, SELFPAY ==
--- NOTE | 2023-01-14 | ECG_ITS ---
Test Reason : chest pain Blood Pressure : / mmHG Vent. Rate : 079 BPM Atrial Rate : 079 BPM P-R Int : 158 ms QRS Dur : 076 ms QT Int : 354 ms P-R-T Axes : 052 009 013 degrees QTc Int : 405 ms Normal sinus rhythm Normal ECG When compared with ECG of 29-JUL-2022 13:40, Nonspecific T wave abnormality no longer evident in Anterior leads Referred By: Generic ED Physician Electronically Signed By:Spike Lunsford
[2023-01-14 10:49] VITALS: BP 114/65; PULSE 80; RESP 18; TEMP 36.4; O2SAT 97
[2023-01-14 10:49] LABS: MANUAL DIFF FLAG NO
[2023-01-14 10:50] LABS: Basophils Absolute Auto 0.1 X10*3/uL (0.0-0.2); Basophils Percent Auto 0.7 % (0-2); Eosinophils Absolute Auto 0.4 X10*3/uL (0.0-0.4); Eosinophils Percent Auto 4.9 % (0-4); Hematocrit 39.8 % (42.0-52.0); Hemoglobin 13.2 g/dl (14.0-18.0); Imm Gran Abs Auto 0.03 X10*3/uL (0.00-0.03); Imm Gran Pct Auto 0.4 % (0.0-0.4); Lymphocytes Absolute Auto 2.1 X10*3/uL (1.2-4.9); Lymphocytes Percent Auto 25.3 % (20-40); Mean Corpuscular HGB Conc 33.2 g/dl (31.0-36.0); Mean Corpuscular Hemoglobin 27.8 pg (27.0-33.0); Mean Corpuscular Volume 83.8 fL (80.0-98.0); Monocytes Absolute Auto 0.5 X10*3/uL (0.1-1.2); Monocytes Percent Auto 5.6 % (2-11); Neutrophils Absolute Auto 5.2 x10*3/uL (2.0-8.3); Neutrophils Percent Auto 63.1 % (45-73); Platelet Count 302 X10*3/uL (160-400); Red Blood Count 4.75 X10*6/uL (4.60-5.80); Red Cell Distribution Width 13.2 % (11.0-16.0); White Blood Count 8.2 X10*3/uL (4.8-10.8)
[2023-01-14 11:07] LABS: Alanine Aminotransferase 15 U/L (0-40); Albumin Level 3.8 g/dL (3.5-5.0); Alkaline Phosphatase 100 U/L (39-117); Anion Gap 12 (12-20); Aspartate Amino Transferase 10 U/L (5-37); Bilirubin Total 0.8 mg/dL (0.0-1.0); Blood Urea Nitrogen 13 mg/dL (9-16); Calcium 9.6 mg/dL (8.4-10.2); Carbon Dioxide 21 mmol/L (22-29); Chloride 108 mmol/L (96-108); Creatinine Clr Calc Pharmacy 77.9; Estimated Glomerular Filt Rate > 60; Glucose Random 124 mg/dL (60-115); Potassium 4.3 mmol/L (3.3-5.1); Sodium 137 mmol/L (135-145); Total Protein 7.2 g/dL (6.5-8.0)
[2023-01-14 11:15] LABS: Troponin-I High Sensitivity < 2.7 ng/L (<3.5-35.0)
[2023-01-14 13:36] LABS: Influenza A PCR NEGATIVE (Negative); Influenza B PCR NEGATIVE (Negative); Resp Syncy Virus RNA Qual PCR NEGATIVE (Negative); SARS COV2 PCR INHOUSE NEGATIVE (Negative)
== END 2023-01-14 17:30 | disposition left against medical advice (07) ==
PROVIDERS: Emergency Provider Emergency Medicine; PCP Internal Medicine
DX: R07.9 Chest pain, unspecified (principal); Z20.822 Contact with and (suspected) exposure to COVID-19; Z20.828 Contact with and (suspected) exposure to other viral communicable diseases
CPT/HCPCS: 0241U; 36415; 80053; 84484; 85025; 93005; 99283

== ENCOUNTER 2023-02-17 07:57 | Emergency (ER) | payer OTHER, SELFPAY ==
[2023-02-17 08:00] VITALS: BP 130/77; PULSE 75; RESP 16; TEMP 36.4; O2SAT 97
[2023-02-17 08:25] VITALS: BP 149/77; PULSE 88; RESP 16; TEMP 36.9; O2SAT 96
--- NOTE | 2023-02-17 08:48 | PC.NURSE ---
pt a&ox3, vss, POC 135mg/dL, pt stating 10/10 pain on the left side of his torso, call wtit placed within reach.
--- NOTE | 2023-02-17 09:06 | ED.SKABFB ---
HPI - Skin/Abscess/Foreign Bdy General Chief complaint: Skin/Abscess/Foreign Body Stated complaint: Rash Time Seen by Provider: 02/17/23 08:14 Source: patient Mode of arrival: ambulatory Limitations: no limitations History of Present Illness HPI narrative: 67-year-old male presents with rash. Rash started on left side of his body. No spreading to the right side. His burning and itchy in nature. Symptoms are severe. There is no clear relieving or exacerbating features. Rash is mildly erythematous. There have been no vesicles. He has never had this before. Patient does have diabetes. He is post be on insulin but he does not take it because the medicine aggarwal. Patient denies any fevers or chills. Denies any new medications, soaps, detergents or foods. Related Data Home Medications Medication Instructions Recorded Confirmed aspirin 81 mg tablet,delayed 81 mg PO DAILY 11/19/20 11/19/20 release metformin 1,000 mg tablet 1 tab PO BID 11/19/20 11/19/20 nicotine (polacrilex) 2 mg gum 1 mg PO Q2H PRN Nicotine Cravings 11/19/20 11/19/20 prednisone 10 mg tablet 10 mg PO DAILY 11/19/20 11/19/20 risperidone 4 mg tablet 4 mg PO BEDTIME 11/19/20 11/19/20 sertraline 100 mg tablet 1.5 tab PO QAM 11/19/20 11/19/20 Previous Rx's Medication Instructions Recorded albuterol sulfate 90 mcg/actuation 2 puff inhalation Q4-6H PRN 10/17/20 aerosol inhaler shortness of breath or wheezing #8.5 grams doxycycline monohydrate 100 mg 100 mg PO BID 10 days #20 caps 10/17/20 capsule doxycycline hyclate 100 mg capsule 100 mg PO BID 10 days #20 caps 05/28/21 ketorolac 10 mg tablet 10 mg PO Q6H 5 days #20 tabs 05/28/21 cyclobenzaprine 10 mg tablet 10 mg PO TID PRN muscle spasm #10 11/02/21 tabs cyclobenzaprine 10 mg tablet 10 mg PO TID PRN muscle spasm #10 01/12/22 tabs ibuprofen 600 mg tablet 600 mg PO Q8H PRN pain #7 tabs 01/12/22 lidocaine 5 % topical patch 1 patch topical DAILY #15 ea 01/12/22 doxycycline hyclate 100 mg capsule 100 mg PO BID 10 days #20 caps 02/14/22 cddhcezdzb-qiutnclrpicql-pswwhokf 1 cap PO Q4-6H PRN headache #14 07/29/22 50 mg-300 mg-40 mg capsule caps (Fioricet) cetirizine 10 mg capsule (Zyrtec) 10 mg PO DAILY PRN itching #10 caps 02/17/23 prednisone 10 mg tablet 10 mg PO DAILY #5 tabs 02/17/23 selenium sulfide 2.5 % lotion 1 appl topical DAILY 7 days #120 mL 02/17/23 Allergies Allergy/AdvReac Type Severity Reaction Status Date / Time Penicillins [PENICILLINS] Allergy Severe FAINTED Verified 01/14/23 10:54 CHILD Review of Systems Review of Systems: CONSTITUTIONAL: Denies weight loss, fever and chills. HEENT: Denies changes in vision and hearing. RESPIRATORY: Denies SOB and cough. CV: Denies palpitations no CP. GI: Denies abdominal pain, nausea, vomiting and diarrhea. : Denies dysuria and urinary frequency. MSK: Denies myalgia and joint pain. SKIN: Positive rash and pruritus. NEUROLOGICAL: Denies headache and syncope. PSYCHIATRIC: Denies recent changes in mood. Denies anxiety and depression. All other ROS are negative unless in HPI PMFSH Past Medical History Medical History Asthma Bladder cancer Diabetes [place] (hard of hearing) Social History Social History Alcohol intake: never Smoked in Last 30 Days: Yes Use of substances other than those prescribed or required for medical reasons: No Advance Directives: No Advance Directives Information Provided: No Physical Exam Vital Signs: Vital Signs: Last Vital Signs Temp 98.5 F 02/17/23 08:25 Pulse 88 02/17/23 08:25 Resp 16 02/17/23 08:25 BP 149/77 H 02/17/23 08:25 Pulse Ox 96 02/17/23 08:25 O2 Del Method Room Air 02/17/23 08:25 BMI result Body Mass Index 30.0 GEN: Well developed, no acute distress, alert, oriented HEENT: Normocephalic, atraumatic, normal external ears, nose appears normal Eyes: Normal to appearance Neck: Supple, no lymphadenopathy Respiratory: Talks in complete sentences, no respiratory distress Extremities: No clubbing cyanosis or edema Neurologic: No focal neurologic deficits, cranial nerves 2-12 intact, gait normal Skin: Erythematous patches on left and right flank, mild abdominal involvement, no raised vesicles, no tenderness to palpation, symptoms are more macules and papules Course Course Course Narrative: Patient presents with a pruritic rash. Differential diagnosis is in the medical decision making. Patient will start oral steroids at a low dose given his diabetes, antihistamines and selenium sulfide. Patient to follow-up with his primary care provider as needed. Medical Decision Making Medical Decision Making [facility] Narrative: 67-year-old male presents with a pruritic rash. Examination revealed macular rash distributed predominantly on the left side of his flank and abdomen, some on the right side. Differential diagnosis: Tinea versicolor, pityriasis rosea a, dermatitis,, allergic rash, pruritus Plan, oral steroids, oral antihistamines, selenium sulfide, follow up as needed Differential Diagnosis Differential Diagnoses: The differential diagnosis associated with the presentation includes (See above) Lab Data [facility] Lab Attestation statement: I reviewed the patient's lab results. Labs: Lab Results 02/17/23 Range/Units 08:34 POC Glucose 135 H (60-115) mg/dL Prescription Management I considered prescription management with: Antibiotic Chronic Conditions Patient?s care impacted by: Diabetes Discharge Plan Discharge Clinical Impression: Pruritic rash Patient Disposition: Home, Self-Care Instructions: Acute Rash (ED) Prescriptions: New selenium sulfide 2.5 % lotion 1 appl topical DAILY 7 Days Qty: 120 0RF Zyrtec 10 mg capsule 10 mg PO DAILY PRN (Reason: itching) Qty: 10 0RF prednisone 10 mg tablet 10 mg PO DAILY Qty: 5 0RF No Action doxycycline monohydrate 100 mg capsule 100 mg PO BID 10 Days Qty: 20 0RF albuterol sulfate 90 mcg/actuation HFA aerosol inhaler 2 puff inhalation Q4-6H PRN (Reason: shortness of breath or wheezing) Qty: 8.5 0RF nicotine (polacrilex) 2 mg gum 1 mg PO Q2H PRN (Reason: Nicotine Cravings) risperidone 4 mg tablet 4 mg PO BEDTIME sertraline 100 mg tablet 1.5 tab PO QAM aspirin 81 mg tablet,delayed release (DR/EC) 81 mg PO DAILY metformin 1,000 mg tablet 1 tab PO BID prednisone 10 mg tablet 10 mg PO DAILY cyclobenzaprine 10 mg tablet 10 mg PO TID PRN (Reason: muscle spasm) Qty: 10 0RF ibuprofen 600 mg tablet 600 mg PO Q8H PRN (Reason: pain) Qty: 7 0RF lidocaine 5 % adhesive patch,medicated 1 patch topical DAILY Qty: 15 0RF Rx Instructions: leave on most painful area for up to 12 hrs doxycycline hyclate 100 mg capsule 100 mg PO BID 10 Days Qty: 20 0RF vrggaxfwbm-waufavmjsscla-qimi [Fioricet] 50-300-40 mg capsule 1 cap PO Q4-6H PRN (Reason: headache) Qty: 14 0RF doxycycline hyclate 100 mg capsule 100 mg PO BID 10 Days Qty: 20 0RF ketorolac 10 mg tablet 10 mg PO Q6H 5 Days Qty: 20 0RF cyclobenzaprine 10 mg tablet 10 mg PO TID PRN (Reason: muscle spasm) Qty: 10 0RF Referrals: Catie Hong MD [Primary Care Provider] - 1 week Interventions: ED Discharge Assessment Last Done: 02/17/23 09:06
== END 2023-02-17 09:06 | disposition home or self-care (01) ==
PROVIDERS: Emergency Provider Emergency Medicine; PCP Internal Medicine
DX: L29.9 Pruritus, unspecified (principal); R21 Rash and other nonspecific skin eruption; Z79.899 Other long term (current) drug therapy
CPT/HCPCS: 82947; 99283; 99284

== ENCOUNTER 2023-05-16 14:39 | Emergency (ER) | payer OTHER, SELFPAY ==
[2023-05-16 15:36] VITALS: BP 139/84; PULSE 73; RESP 14; TEMP 36.3; O2SAT 98; BMI 28.1
--- NOTE | 2023-05-16 15:37 | ED.URI ---
HPI - URI/Sore Throat General Chief Complaint: General Medical Stated Complaint: Needs COVID Test Time Seen by Provider: 05/16/23 16:15 Source: patient Mode of arrival: ambulatory Limitations: language barrier (Romanian-speaking translator and interpreter utilized) History of Present Illness HPI Narrative: Patient is a 67-year-old male who presents to the emergency department and reports upper respiratory symptoms x 3 weeks, had COVID testing 3 days ago at [facility] and tested positive for COVID-19. His symptoms have overall been improving. He does continue to have a mild productive cough but denies fevers, chills, chest pain, difficulty breathing. He demands repeat testing today because they make mistakes and he wants to be certain whether he does or does not have COVID-19. He is requesting a letter to provide to his housing personnel, regarding his COVID-19 status. It is unclear exactly why he needs this letter. Related Data Home Medications Medication Instructions Recorded Confirmed aspirin 81 mg tablet,delayed 81 mg PO DAILY 11/19/20 11/19/20 release metformin 1,000 mg tablet 1 tab PO BID 11/19/20 11/19/20 nicotine (polacrilex) 2 mg gum 1 mg PO Q2H PRN Nicotine Cravings 11/19/20 11/19/20 prednisone 10 mg tablet 10 mg PO DAILY 11/19/20 11/19/20 risperidone 4 mg tablet 4 mg PO BEDTIME 11/19/20 11/19/20 sertraline 100 mg tablet 1.5 tab PO QAM 11/19/20 11/19/20 Previous Rx's Medication Instructions Recorded albuterol sulfate 90 mcg/actuation 2 puff inhalation Q4-6H PRN 10/17/20 aerosol inhaler shortness of breath or wheezing #8.5 grams doxycycline monohydrate 100 mg 100 mg PO BID 10 days #20 caps 10/17/20 capsule doxycycline hyclate 100 mg capsule 100 mg PO BID 10 days #20 caps 05/28/21 ketorolac 10 mg tablet 10 mg PO Q6H 5 days #20 tabs 05/28/21 cyclobenzaprine 10 mg tablet 10 mg PO TID PRN muscle spasm #10 11/02/21 tabs cyclobenzaprine 10 mg tablet 10 mg PO TID PRN muscle spasm #10 01/12/22 tabs ibuprofen 600 mg tablet 600 mg PO Q8H PRN pain #7 tabs 01/12/22 lidocaine 5 % topical patch 1 patch topical DAILY #15 ea 01/12/22 doxycycline hyclate 100 mg capsule 100 mg PO BID 10 days #20 caps 02/14/22 yztqryghhj-mthbqmjcbnfav-xqcskili 1 cap PO Q4-6H PRN headache #14 07/29/22 50 mg-300 mg-40 mg capsule caps (Fioricet) cetirizine 10 mg capsule (Zyrtec) 10 mg PO DAILY PRN itching #10 caps 02/17/23 prednisone 10 mg tablet 10 mg PO DAILY #5 tabs 02/17/23 selenium sulfide 2.5 % lotion 1 appl topical DAILY 7 days #120 mL 02/17/23 Allergies Allergy/AdvReac Type Severity Reaction Status Date / Time Penicillins [PENICILLINS] Allergy Severe FAINTED Verified 01/14/23 10:54 CHILD Review of Systems Review of Systems: Constitutional: No fever. No chills. No weakness. No fatigue. ENT/ Mouth: No Ear Pain, no Nasal Congestion, no sore throat, No Rhinorrhea, No Swallowing Difficulty Skin: No rash or itching. Cardiovascular: No chest pain. No palpitations. Respiratory: No shortness of breath. Positive cough. No sputum production. Gastrointestinal: No nausea. No vomiting. No diarrhea. No abdominal pain. Genitourinary: No burning micturition. No urinary frequency. Neurologic: No headache. No dizziness. No syncope. No numbness or tingling in the extremities. Musculoskeletal: No muscle pain. No back pain. No joint pain or stiffness. Yes all other systems are reviewed and are negative [facility] Past Medical History Attestation statement: The following information was validated with the patient. Source: old records reviewed Medical History Bladder cancer Asthma Diabetes [place] [employer] (hard of hearing) Social History Social History Alcohol intake: never Physical Exam Vital Signs: Vital Signs: Last Vital Signs Temp 97.4 F 05/16/23 15:36 Pulse 73 05/16/23 15:36 Resp 14 05/16/23 15:36 BP 139/84 05/16/23 15:36 Pulse Ox 98 05/16/23 15:36 O2 Del Method Room Air 05/16/23 15:36 BMI result Body Mass Index 28.1 Appearance: Alert.?Oriented to person, place and time. No acute distress.?Normal affect. Eyes: Pupils equal, round and reactive to light.? ENT: TM normal bilaterally. Pharynx normal.?? Neck: Normal inspection.? Neck supple.??No cervical adenopathy CVS: Heart sounds normal. Normal heart rate and rhythm.? Pulses normal.?? Respiratory: No respiratory distress.? Lung sounds clear to auscultation bilaterally?? Abdomen: Soft and non-tender. Normoactive bowel sounds. Skin: Skin warm and dry.? Normal skin color.? ? Extremities: No lower extremity edema.? Neuro: Moves all extremities spontaneously. Sensation intact bilaterally. No motor deficits. Ambulates with normal steady gait. Medical Decision Making Medical Decision Making [facility] Narrative: Patient is a 67-year-old male who presents emergency department requesting COVID-19 testing, has been experiencing a mild productive cough for the past 3 weeks. Today COVID-19 testing is negative today. At this time history and physical exam not consistent with ACS/PE/pneumonia. Well-appearing, nontoxic, afebrile, no tachycardia or tachypnea/hypoxia. Speaking clear full sentences, ambulatory with steady gait. Discussed conservative treatment including rest, hydration, Tylenol/ibuprofen as needed for fever and body aches, saline nasal spray, humidifier, gvgx-olc-ezgmezc cold medication. Advised to follow-up with primary care provider as needed, discussed reasons to return back to the emergency department. All questions were answered. Patient discharged home in stable condition. Differential Diagnosis Differential Diagnoses: The differential diagnosis associated with the presentation includes (As noted above) Lab Data [facility] Lab Attestation statement: I reviewed the patient's lab results. (As noted above) Labs: Lab Results 05/16/23 Range/Units 15:49 COVID-19 (MICHELE) Negative (Negative) COVID-19 Clin Com See Note Tests considered The following testing was considered but not selected: XR imaging deferred, low suspicion for pneumonia. Prescription Management I considered prescription management with: Other (OTC antitussive) Discharge Plan Discharge Clinical Impression: Cough Patient Disposition: Home, Self-Care Instructions: Upper Respiratory Infection (ED) Additional Instructions: Your COVID test obtained today resulted as negative. Please follow-up with your primary care provider as needed. Return back to the emergency department any new or worsening symptoms or concerns. Prescriptions: No Action doxycycline monohydrate 100 mg capsule 100 mg PO BID 10 Days Qty: 20 0RF albuterol sulfate 90 mcg/actuation HFA aerosol inhaler 2 puff inhalation Q4-6H PRN (Reason: shortness of breath or wheezing) Qty: 8.5 0RF nicotine (polacrilex) 2 mg gum 1 mg PO Q2H PRN (Reason: Nicotine Cravings) risperidone 4 mg tablet 4 mg PO BEDTIME sertraline 100 mg tablet 1.5 tab PO QAM aspirin 81 mg tablet,delayed release (DR/EC) 81 mg PO DAILY metformin 1,000 mg tablet 1 tab PO BID prednisone 10 mg tablet 10 mg PO DAILY cyclobenzaprine 10 mg tablet 10 mg PO TID PRN (Reason: muscle spasm) Qty: 10 0RF ibuprofen 600 mg tablet 600 mg PO Q8H PRN (Reason: pain) Qty: 7 0RF lidocaine 5 % adhesive patch,medicated 1 patch topical DAILY Qty: 15 0RF Rx Instructions: leave on most painful area for up to 12 hrs doxycycline hyclate 100 mg capsule 100 mg PO BID 10 Days Qty: 20 0RF bijqzrucsc-mymknjncudilc-vuhh [Fioricet] 50-300-40 mg capsule 1 cap PO Q4-6H PRN (Reason: headache) Qty: 14 0RF doxycycline hyclate 100 mg capsule 100 mg PO BID 10 Days Qty: 20 0RF ketorolac 10 mg tablet 10 mg PO Q6H 5 Days Qty: 20 0RF cyclobenzaprine 10 mg tablet 10 mg PO TID PRN (Reason: muscle spasm) Qty: 10 0RF selenium sulfide 2.5 % lotion 1 appl topical DAILY 7 Days Qty: 120 0RF Zyrtec 10 mg capsule 10 mg PO DAILY PRN (Reason: itching) Qty: 10 0RF prednisone 10 mg tablet 10 mg PO DAILY Qty: 5 0RF
== END 2023-05-16 16:30 | disposition home or self-care (01) ==
PROVIDERS: Emergency Provider Student in an Organized Health Care Education/Training Program; PCP Internal Medicine
DX: R05.9 Cough, unspecified (principal); Z11.52 Encounter for screening for COVID-19
CPT/HCPCS: 87635; 99281; 99283

== ENCOUNTER 2023-12-04 12:37 | Outpatient (REF) | payer OTHER, SELFPAY ==
[2023-12-04 14:23] LABS: MANUAL DIFF FLAG NO
[2023-12-04 14:32] LABS: Basophils Absolute Auto 0.1 X10*3/uL (0.0-0.2); Basophils Percent Auto 0.5 % (0-2); Eosinophils Absolute Auto 0.4 X10*3/uL (0.0-0.4); Eosinophils Percent Auto 3.5 % (0-4); Hematocrit 42.1 % (42.0-52.0); Hemoglobin 14.1 g/dl (14.0-18.0); Imm Gran Abs Auto 0.04 X10*3/uL (0.00-0.03); Imm Gran Pct Auto 0.4 % (0.0-0.4); Lymphocytes Absolute Auto 2.1 X10*3/uL (1.2-4.9); Lymphocytes Percent Auto 19.9 % (20-40); Mean Corpuscular HGB Conc 33.5 g/dl (31.0-36.0); Mean Corpuscular Hemoglobin 28.1 pg (27.0-33.0); Mean Corpuscular Volume 83.9 fL (80.0-98.0); Mean Platelet Volume 9.2 fL (9.4-12.4); Monocytes Absolute Auto 0.6 X10*3/uL (0.1-1.2); Monocytes Percent Auto 6.1 % (2-11); Neutrophils Absolute Auto 7.3 x10*3/uL (2.0-8.3); Neutrophils Percent Auto 69.6 % (45-73); Platelet Count 395 X10*3/uL (160-400); Red Blood Count 5.02 X10*6/uL (4.60-5.80); Red Cell Distribution Width 15.9 % (11.0-16.0); White Blood Count 10.5 X10*3/uL (4.8-10.8)
[2023-12-04 15:26] LABS: Alanine Aminotransferase 27 U/L (0-40); Alkaline Phosphatase 109 U/L (39-117); Anion Gap 9 (12-20); Aspartate Amino Transferase 14 U/L (5-37); Bilirubin Total 0.6 mg/dL (0.0-1.0); Blood Urea Nitrogen 13 mg/dL (9-16); Calcium 9.6 mg/dL (8.4-10.2); Carbon Dioxide 23 mmol/L (22-29); Chloride 111 mmol/L (96-108); Cholesterol 117 mg/dL (<200); Estimated Glomerular Filt Rate > 60; Glucose Random 125 mg/dL (60-115); HDL Cholesterol 28 mg/dL (>40); LDL Cholesterol Calculated 70 mg/dL (<100); Sodium 139 mmol/L (135-145); TSH reflex Free T4 0.48 uIU/mL (0.32-4.0); Total Protein 7.6 g/dL (6.5-8.0); Triglycerides 99 mg/dL (<150)
[2023-12-04 16:22] LABS: Creatinine Urine 199.59 mg/dL
[2023-12-05 08:28] LABS: ~HepC Num1 0.13 S/CO (0.00-0.79); ~Hepatitis C Antibody Nonreactive (Nonreactive)
== END 2023-12-04 12:38 | disposition home or self-care (01) ==
LOC: HO.CHCLDS 12:37
PROVIDERS: Visit Provider Internal Medicine
DX: I10 Essential (primary) hypertension (principal); E11.9 Type 2 diabetes mellitus without complications; E78.00 Pure hypercholesterolemia, unspecified
CPT/HCPCS: 36415; 80053; 80061; 82043; 82570; 84443; 85025; 86803

== ENCOUNTER 2023-12-12 09:08 | Outpatient (REF) | payer OTHER, SELFPAY ==
--- NOTE | ~2023-12-12 | CT_ITS ---
EXAMINATION: CT CHEST WITHOUT CONTRAST CLINICAL INFORMATION: Follow-up pulmonary nodules. COMPARISON: CTA chest dated 12/17/2020. TECHNIQUE: Multidetector volumetric CT imaging of the chest was done. Axial MIP volume rendering provided. Sagittal and coronal reformatted images were obtained. This CT examination was performed using dose optimization techniques as appropriate, variously including the following: *Automated exposure control *Adjustment of mA and/or kV according to patient size (this includes techniques or standardized protocols for targeted exams where dose is matched to indication/reason for exam; i.e. extremities or head) *Use of iterative reconstruction technique DLP: 161 mGy-cm FINDINGS: SERVER CASHIER: The lungs are symmetrically well-expanded. LUNGS: Again, there is right apical pleural and parenchymal scarring. There is increase in bilateral subpleural linear and polygonal reticular markings, with associated mild honeycombing. Within the right lower lobe, there are benign, calcified granulomas, and numerous tree-in-bud nodules are seen, best appreciated on the MIP sequence. One of the largest of these tree-in-bud nodules measures 7 mm (5:47). There is generalized small airway thickening. The central airways appear patent. MEDIASTINUM: The thyroid is unremarkable. There is no thoracic aortic aneurysm. There are moderate atherosclerotic calcifications of the thoracic aorta. There are numerous shotty, nonpathologically enlarged mediastinal lymph nodes, the largest situated in the prevascular region measuring 8 mm in short axis diameter (3:14), the precarinal region showing a short axis diameter of 8 mm (3:23), the AP window having a short axis diameter of 7 mm (3:21), and the subcarinal region with a short axis diameter of 8 mm (3:28). No sizable mediastinal or hilar lymphadenopathy is seen. CORONARY ARTERY CALCIFICATION: Moderate. There are further calcifications of the mitral annulus. PLEURA: There is no pleural effusion. No pleural mass or thickening. AXILLA: There are shotty, nonpathologically enlarged bilateral axillary lymph nodes, the largest on the right showing a short axis diameter of 8 mm, and on the left a short axis diameter of 9 mm (3:11 and 15, respectively). No sizable axillary or internal mammary lymphadenopathy is seen. UPPER ABDOMEN: Unremarkable. OSSEOUS STRUCTURES: There is multi-level thoracic spondylosis. No acute or aggressive osseous finding is noted. CT/CT chest wo IV con IMPRESSION: 1. There are multiple tree-in-bud nodules noted within the left lower lobe, the largest measuring 7 mm. Tree-in-bud arrangement together with a small airway thickening suggests small airways disease secondary to an infectious or inflammatory etiology. Please correlate clinically. These nodules are largely new from prior. According to the UPDATED 2017 Fleischner Society recommendations, the advised follow-up imaging for multiple solid nodules, the largest measuring 6 mm or greater, is: LOW RISK PATIENT: CT at 3-6 months, then consider CT at 18-24 months. HIGH RISK PATIENT: CT at 3-6 months, then at 18-24 months. 2. There are findings consistent with mild to moderate idiopathic pulmonary fibrosis. 3. No sizable mediastinal or hilar lymphadenopathy is seen. There are shotty, nonpathologically enlarged bilateral axillary lymph nodes. 4. There is multi-level thoracic spondylosis. No acute or aggressive osseous finding is noted. 5. There are moderate coronary artery atherosclerotic calcifications. Additional calcifications are noted of the mitral annulus. Fleischner guidelines were followed.
== END 2023-12-12 09:09 | disposition home or self-care (01) ==
LOC: HO.CT 09:08
PROVIDERS: PCP Internal Medicine; Visit Provider Internal Medicine
DX: R91.8 Other nonspecific abnormal finding of lung field (principal)
CPT/HCPCS: 71250

== ENCOUNTER 2025-01-21 11:38 | Outpatient (REF) | payer OTHER, SELFPAY ==
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
== END 2025-01-21 11:39 | disposition home or self-care (01) ==
LOC: HO.SH 11:38
PROVIDERS: Visit Provider Internal Medicine
DX: Z01.118 Encounter for examination of ears and hearing with other abnormal findings (principal); H90.6 Mixed conductive and sensorineural hearing loss, bilateral
CPT/HCPCS: 92557; 92567

== ENCOUNTER 2025-06-21 14:09 | Outpatient (REF) | payer OTHER, SELFPAY ==
--- OUTSIDE RECORDS SUMMARY | 2024-10-20 10:00 | XMS_ITS ---
Author Organization [facility] Address [address] [place] [id number] Care Team Providers Care Band Machine Operator Name Role Phone Hal Smith, Catie Primary Care Provider Un available Luisito Mendes [phone] REASON FOR VISIT Patient presents today for a colon recall Encounters Encounter Location Date Provider Diagnosis [facility] [address] [place] [id number] 10/20/2024 Luisito Mendes Plan Of Treatment No Information Progress Notes * FRANK MARTINDOB:[birth year] (69 yo M)Acc No.[id number]:10/20/2024 Progress Notes Patient: FRANK ALMAZAN Provider: Caprice Mendes MD :1955 A ge:68 Y S ex:Male Date:10/20/2024 Address:[address] [place], [place] [id number] Pcp:Catie Hong M.D. Subjective: * Chief Complaints: * 1 . Patient presents today for a colon recall. * Medical History: Objective: * Vitals: Assessment: Plan: * Treatment: * * The named appointment provid er may or may not be the originator of this progress note, and it is not deemed complete until electronically signed by the appointment provider. Sign off status: Pending * Provider: Caprice Mendes MD Date: 0 10/20/2024 Generated for John vega/Sergio/Anirudhsmitting on: 1 08/21/2024 01:15 PM EST
--- OUTSIDE RECORDS SUMMARY | 2025-06-21 14:00 | XMS_ITS | Encounter Summary ---
Author Organization [employer] Address [address] [place] [address] Care Team Providers Care Start Up Specialist Name Role Phone Catie Hong MD Primary Care Provider [phone] Reason for Referral * Consultation (Routine) - Pending Review Specialty Diagnoses / Procedures Referred By Contac t Referred To Contact Gastroenterology Diagnoses Hyperplastic colonic polyp, unspecified part of colon Catie Hong MD [address] [place] [phone] Phone: tel: fax: Luisito Mendes MD [address] [place] [address] [address] [facility] [address] [place] [address] Phone: tel: fax: Referral ID Status Reason Start Date Expiration Date Visits Requested Visits Authorized [id number] Pending Review Specialty Services Required 5 06/21/2026 1 1 Reason for Visit * Reason Comments Hypertension Diabetes Encounter Details Date Type Department Care Team ([facility] st Contact Info) Description 06/21/2025 2:00 PM EST Office Visit [facility] [address] [place] [address] [phone] Catie Hong MD [address] [place], [place] [phone] Diabetes mellitus without complication (HCC) (Primary Dx); Primary hypertension; Hypercholesterolemia; Hyperplastic colonic polyp, unspecified part of colon; Smoking addiction; Encounter for vaccination; Encounter for immunization Social History Tobacco Use Types Packs/Day Years Used Date Smoking Tobacco: Every Day Cigarettes 1 51 Passive Smoke Exposure: Never Smokeless Tobacco: Never Alcohol Use Standard Drinks/Week Comments Never 0 (1 standard drink = 0.6 oz pur e alcohol) Depression Answer Date Recorded Patient Health Questionnaire-9 Score 16 03/21/2025 Patient Health Questionnaire-9 Score 16 03/21/2025 Last PHQ-9: Questionnaire Data Not on file 0 03/21/2025 Housing Stability Answer Date Recorded What is your housing situation today? I have afua gomes 03/21/[address] you li ve. Do you have problems with any of the following? None of the above 03/21/2025 Food Insecurity Answer Date Recorded Within the past 12 months, y ou worried that your food would run out before you got money to buy more: Never True 03/21/2025 Within the past 12 months,th e food you bought just didn't last and you didn't have enough money to get more: Never True 06/2025 Transportation Answer Date Recorded In the past 12 months, has l ack of transportation kept you from medical appts, meetings, work or from getting things needed for daily living? No 03/21/2025 Utilities Answer Date Recorded In the past 12 months, has t he electric, gas, oil or water company threatened to shut off services in your home? No 03/21/2025 Depression Answer Date Recorded Patient Health Questionnaire-2 Score 6 03/21/2025 Internet Access Answer Date Recorded Internet Access Q1 No 03/21/2025 Internet Access Q2 Not on file 03/21/2025 Sex and Gender Information Value Date Recorded Sex Assigned at Male 06/10/2022 10:14 AM EDT Legal Sex Male 10:14 AM EDT Gender Identity Male 06/10/2022 10:14 AM EDT Sexual Orientation Straight 06/10/2022 10 :14 AM EDT documented as of this encounter Last Filed Vital Signs Vital Sign Reading Time Taken Comments Blood Pressure 109/68 06/21/2025 1:46 PM EST Pulse 88 06/21/2025 1:46 PM EST Temperature - - Respiratory Rate 20 06/21/2025 1:46 PM EST Oxygen Saturation 93% 06/21/2025 1:46 PM EST Inhaled Oxygen Concentration - - Weight 79.8 kg (176 lb) 06/21/2025 1:46 PM EST Height 152.4 cm (5') 06/21/2025 1:46 PM EST Body Mass Index 34.37 06/21/2025 1:46 PM EST documented in this encounter Plan of Treatment Scheduled Orders Name Type Priority Associated Diagnoses Orde r Schedule CBC auto differential Lab Routine Diabetes mellitus without complication (HCC) Expected: 06/21/2025 (Approximate), Expires: 06/21/2026 Comprehensive Metabolic Panel Lab Routine Diabetes mellitus without complication (HCC) Expected: 06/21/2025 (Approximate), Expires: 06/21/2026 Lipid Panel, Standard Lab Routine Diabetes mellitus without complication (HCC) Primary hypertension Hypercholesterolemia Expected: 06/21/2025 (Approximate), Expires: 06/21/2026 TSH with Reflex to Free T4 Lab Routine Diabetes mellitus without complication (HCC) Expected: 06/21/2025 (Approximate), Expires: 06/21/2026 Albumin, Random Urine W/Creatinine Lab Routine Diabetes mellitus without complication (HCC) Expected: 06/21/2025 (Approximate), Expires: 06/21/2026 Scheduled Referrals Name Type Priority Associated Diagnoses Order Schedule Referral to Gastroenterology Outpatient Referral Routine Hyperplastic colonic polyp, unspecified part of colon Expected: 06/21/2025 (Approximate), Expires: 06/21/2026 documented as of this encounter Procedures Procedure Name Priority Date/Time Associated Diagnosis Comments POCT GLUCOSE Routine 06/21/2025 3:09 PM EST Diabetes mellitus without complication (HCC) POCT GLYCATED HEMOGLOBIN, TOTAL Routine 06/21/2025 3:08 PM EST Diabetes mellitus without complication (HCC) documented in this encounter Results * POCT Glucose (06/21/2025 3:09 PM EST) Glucose Blood, POC 98 60 - 200 mg/dL QC Media Lot # [id number] Lot# Expiration Date Comment:random Blood Capillary blood specimen / Unknown 06/21/2025 3:09 PM EST Catie Hong MD POINT OF CARE TEST ENTER/ED IT ORDERABLES Final Result * POCT Hgb A1c (06/21/2025 3:08 PM EST) Hemoglobin A1C 4.8 4.0 - 5.7 % QC Media Lot # [id number] Lot# Expiration Date ,939,223 Blood 06/21/2025 3:08 PM EST Catie Hong MD POINT OF CARE TEST ENTER/ED IT ORDERABLES Final Result documented in this encounter Visit Diagnoses Diagnosis Diabetes mellitus without complication (HCC)- Primary Type II or unspecified type diabetes mellitus without mention of complication, not stated as uncontrolled Primary hypertension Unspecified essential hypertension Hypercholesterolemia Pure hypercholesterolemia Hyperplastic colonic polyp, unspecified part of colon Smoking addiction Encounter for vaccination Encounter for immunization documented in this encounter Additional Health Concerns Assessment Noted Time PHQ-9 Depression Total Score: 16 025 1:31 PM EDT documented as of this encounter Care Teams Start Up Specialist Relationship Specialty Start Date End Date Catie Hong MD [address] [place] [phone] PCP - General Internal Medicine 03/26/12 [employer] 12/17/23 documented as of this encounter
--- OUTSIDE RECORDS SUMMARY | 2025-06-21 15:50 | XMS_ITS | Clinical Summary ---
Author Organization [employer] Address [address] [facility] 7t [place] [address] Care Team Providers Care Learning Support Resource Room Teacher Name Role Phone Catie Hong MD Primary Care Provider [phone] Allergies Active Allergy Reactions Criticality Noted Date Comments Penicillins 02/14/2012 Medications DULoxetine (Cymbalta) [address] capsule Take 1 capsule by mouth every 12 (twelve) hours. 1 Active inFLIXimab (Remicade) 100 MG injection 3 Active UltiCare Insulin Syringe 31G X 5/16 0.3 ML misc USE 1 DAILY WITH lantus 2 Active TRUEplus Lancets 33G miscIndications:Di abetes mellitus without complication (HCC) TEST BLOOD SUGAR TWICE DAILY 100 each 3 3 Active Ventolin HFA 108 (90 Base) MCG/ACT inhaler INHALE 2 PUFFS BY MOUTH EVERY 4 HOURS NEEDED FOR WHEEZING 18 g 3 4 Active tiZANidine (Zanaflex) 4 MG tabletIndications: Spasm TAKE 1 TABLET BY MOUTH THREE TIMES DAILY 90 tablet 11 4 Active atorvastatin (Lipitor) 80 MG tabletIndications: Hypercholesterolem ia TAKE 1 TABLET BY MOUTH EVERY DAY 30 tablet 11 4 Active D3-1000 25 MCG (1000 UT) capsuleIndications :Vitamin D deficiency TAKE 1 CAPSULE BY MOUTH EVERY DAY 30 capsule 11 5 Active Aspirin EC Adult Low Dose 81 MG EC tabletIndications: Primary hypertension TAKE 1 TABLET BY MOUTH EVERY DAY 90 tablet 3 5 Active metFORMIN (Glucophage) 1000 MG tabletIndications: Type 2 diabetes mellitus without complications (HCC) TAKE 1 TABLET BY MOUTH TWICE DAILY IN THE MORNING AND IN THE EVENING WITH MEALS 180 tablet 3 5 Active lisinopril 10 MG tabletIndications: Essential (primary) hypertension TAKE 1 TABLET BY MOUTH EVERY DAY 90 tablet 1 5 Active Januvia 100 MG tablet TAKE 1 TABLET BY MOUTH ONCE DAILY 30 tablet 4 5 Active omeprazole (PriLOSEC) [address] capsule TAKE 1 CAPSULE BY MOUTH TWICE DAILY 60 capsule 1 5 Active ibuprofen 800 MG tabletIndications: Rheumatoid arthritis of other site with positive rheumatoid factor (HCC),Spasm TAKE 1 TABLET BY MOUTH TWICE DAILY 60 tablet 3 5 Active Active Problems Problem Noted Date Diagnosed Date Spasm 05/27/2022 Idiopathic osteoarthritis 06/01/2021 Tenderness of joint 06/01/2021 Rheumatoid arthritis (CMS/HCC) 08/21/2020 Hyperplastic polyp of large intestine 08/02/2019 Diabetes mellitus without complication 5 Hypercholesterolemia 01/04/2015 Hypertensive disorder 01/04/2015 Encounters Date Type Department Care Team Description 06/21/2025 2:00 PM EST Office Visit [facility] [address] [place] [address] Catie Hong MD Diabetes mellitus without complication (HCC) (Primary Dx); Primary hypertension; Hypercholesterolemia; Hyperplastic colonic polyp, unspecified part of colon; Smoking addiction; Encounter for vaccination; Encounter for immunization 06/21/2025 Travel 06/20/2025 Telephone [facility] [address] [place] [address] Catie Hong MD Chart Prep 05/06/2025 Refill [facility] [address] [place] [address] Catie Argueta MD Rheumatoid arthritis of other site with positive rheumatoid factor (CMS/HCC); Spasm 04/27/2025 Refill [facility] [address] [place] [address] Catie Argueta MD 04/06/2025 Refill [facility] [address] [place] [address] Catie Hong MD 04/01/2025 Refill [facility] [address] [place] [address] Efra Paul MD Essential (primary) hypertension 03/21/2025 1:00 PM EDT Office Visit [facility] [address] [place] [address] Catie Hong MD Diabetes mellitus without complication (CMS/HCC) (Primary Dx); Hypercholesterolemia; Primary hypertension; Smokes more than 1/2 pack of cigarettes per day; Decreased hearing of both ears 03/21/2025 Travel from Last 3 Months Immunizations Immunization Administration Dates Next Due INFLUENZA INJECTABLE QUADRIV ALANT CCIIV4 MDCK Multi-dose vial 05/23/2020 Influenza injectable quadriv alent IIV4 with preservative 06/05/2018,07/31/2017,05/16/2016 Influenza injectable quadriv alent preservative free 05/15/2021,05/29/2015 Influenza, High Dose Seasona l, Preservative Free 06/21/2025,06/08/2024 Influenza, Split (incl. navarro fied surface antigen) 06/05/2012 Influenza, trivalent, adjuvanted 05/07/2023,10/0 10/2021 Pfizer Covid-19 Vaccine 12+ 06/21/2025,,06/29/2021 Pneumococcal Conjugate PCV 13 12/02/2017 Pneumococcal Conjugate PCV 20 12/04/2023 Tdap 03/24/2017 Zoster, Recombinant 03/13/2021,01/03/2021 Zoster, live 03/24/2017 Social History Tobacco Use Types Packs/Day Years Used Date Smoking Tobacco: Every Day Cigarettes 1 51 Passive Smoke Exposure: Never Smokeless Tobacco: Never Tobacco Cessation:Ready to Q uit: Not Asked; Counseling Given: Not Answered Alcohol Use Standard Drinks/Week Comments Never 0 [...] Orientation Straight 06/10/2022 10 :14 AM EDT Last Filed Vital Signs Vital Sign Reading Time Taken Comments Blood Pressure 109/68 06/21/2025 1:46 PM EST Pulse 88 06/21/2025 1:46 PM EST Temperature 36.8 C (98.3 F) 03/21/2025 1:04 PM EDT Respiratory Rate 20 06/21/2025 1:46 PM EST Oxygen Saturation 93% 06/21/2025 1:46 PM EST Inhaled Oxygen Concentration - - Weight 79.8 kg (176 lb) 06/21/2025 1:46 PM EST Height 152.4 cm (5') 06/21/2025 1:46 PM EST Body Mass Index 34.37 06/21/2025 1:46 PM EST Plan of Treatment Health Maintenance Due Date Last Done Comments CT Colonography 1956 FIT DNA/Cologuard 1956 FIT 1956 FOBT 1956 Sigmoidoscopy 1956 Eye Exam 1966 Lung Cancer Screening 2006 RSV Patients and Patients Aged 60 years or older (1 - Risk 60-74 years 1-dose series) 2016 Colonoscopy 08/02/2024 08/02/2019 Colorectal Cancer Screening 08/02/2024 Lipid Panel 12/03/2024 12/04/2023, 09/11, 03/06/2020 Diabetes: Urine Protein Screening 09/16/2025 09/16/2024, 12/04/2023, 03/06/2020 Depression Monitoring 09/21/2025 03/21/2025, 025 Diabetes: Foot Exam 12/10/2025 12/10/2024, 06/03/2023, 06/03/2023, Additional history exists COVID-19 Vaccine () 12/19/2025 06/21/2025, 07/23/2021, 06/29/2021 Diabetes: Hemoglobin A1C 12/19/2025 025, 03/21/2025, 12/10/2024, Additional history exists Alcohol/Substance Use Screening 03/21/2026 03/21/2025 SDOH Screening 03/21/2026 03/21/2025 Tobacco Screening 06/21/2026 06/21/2025 DTaP/Tdap/Td Vaccines (2 - Td or Tdap) 03/24/2027 03/24/2017 Zoster Vaccines Completed 03/13/2021, 12/10, 03/24/2017 Hepatitis C Screening Completed 12/04/2023 Pneumococcal Vaccine: 50+ Years Completed 12/04/2023, 12/02/2017 Influenza Vaccine Completed 06/21/2025, , 05/07/2023, Additional history exists HIB Vaccines Aged Out No longer eligi ble based on patient's age to complete this topic HPV Vaccines Aged Out No longer eligi ble based on patient's age to complete this topic Hepatitis A Vaccines Aged Out No long er eligible based on patient's age to complete this topic Hepatitis B Vaccines Aged Out No long er eligible based on patient's age to complete this topic IPV Vaccines Aged Out No longer eligi ble based on patient's age to complete this topic Meningococcal B Vaccine Aged Out No l onger eligible based on patient's age to complete this topic Meningococcal Vaccine Aged Out No roberto zulma eligible based on patient's age to complete this topic RSV under 20 months Aged Out No longe r eligible based on patient's age to complete this topic Rotavirus Vaccines Aged Out No longer eligible based on patient's age to complete this topic Procedures Procedure Name Priority Date/Time Associated Diagnosis Comments POCT GLUCOSE Routine 06/21/2025 3:09 PM EST Diabetes mellitus without complication (HCC) POCT GLYCATED HEMOGLOBIN, TOTAL Routine 06/21/2025 3:08 PM EST Diabetes mellitus without complication (HCC) POCT GLUCOSE Routine 03/21/2025 1:47 PM EDT Diabetes mellitus without complication (CMS/HCC) POCT GLYCATED HEMOGLOBIN, TOTAL Routine 03/21/2025 1:46 PM EDT Diabetes mellitus without complication (CMS/HCC) ALBUMIN/CREATININE RATIO, RANDOM URINE Routine 09/16/2024 9:10 AM EST HEPATITIS C AB W/REFL TO HCV RNA, QN, PCR Routine 12/04/2023 12:39 PM EDT Diabetes mellitus without complication (CMS/HCC) Hypercholesterolemia LIPID PANEL, STANDARD Routine 12/04/2023 12:39 PM EDT Diabetes mellitus without complication (CMS/HCC) Hypercholesterolemia Primary hypertension HM COLONOSCOPY Routine 08/02/2019 from Last 3 Months or Most Recently Relevant to Health Maintenance Results * POCT Glucose (06/21/2025 3:09 PM EST) Only the most recent of2 resultswithin the time period is included. Glucose Blood, POC 98 60 - 200 mg/dL QC Media Lot # [id number] Lot# Expiration Date Comment:random Blood Capillary blood specimen / Unknown 06/21/2025 3:09 PM EST Catie Hong MD POINT OF CARE TEST ENTER/ED IT ORDERABLES Final Result * POCT Hgb A1c (06/21/2025 3:08 PM EST) Only the most recent of2 resultswithin the time period is included. Hemoglobin A1C 4.8 4.0 - 5.7 % QC Media Lot # [id number] Lot# Expiration Date ,[id number] Blood 06/21/2025 3:08 PM EST Catie Hong MD POINT OF CARE TEST ENTER/ED IT ORDERABLES Final Result * Albumin/Creatinine Ratio, Random Urine (09/16/2024 9:10 AM EST) Urine (Urine, Random) [facility] Provider LAB URINE ORDERABLES Virgen l Result * Hepatitis C Antibody with Reflex to HCV, RNA, Quantitative, Real-Time PCR (12/04/2023 12:39 PM EDT) Pathologist [facility] Hepatitis C Antibody Nonreactive Nonreactive [facility] Comment:Antibodies to HCV no t detected; does not exclude early acuteHCV infection. Blood Venous blood specimen / Unknown 12/04/2023 12:39 PM EDT 12/04/2023 2:18 PM EDT Catie Hong MD LAB BLOOD ORDERABLES Final Result [facility] [address] [place] [phone] * (ABNORMAL) Lipid Panel, Standard (12/04/2023 12:39 PM EDT) Triglycerides 99 <150 mg/dL [facility] Comment:Desirable Triglyceri de: less than 150 mg/dLBorderline High Triglyceride 150-199 mg/dLHigh Triglyceride: 200-499 mg/dLVery High Triglyceride: greater than or equal to 5OO mg/dL Cholesterol 117 <200 mg/dL [facility] Comment:Desirable Cholestero l: less than 200 mg/dLBorderline High Cholesterol: 200-239 mg/dLHigh Cholesterol: greater than 239 mg/dL LDL Cholesterol Calculated 70 <100 mg/dL [facility] Comment:Desirable LDL: less than 100 mg/dLNear Optimal/Above Optimal LDL: 110- 129 mg/dLBorderline High LDL: 130-159 mg/dLHigh LDL: 160-189 mg/dLVery High LDL: greater than or equal to 190 mg/dL HDL Cholesterol 28(L) >40 mg/dL [facility] Comment:Desirable HDL: great er than 40 mg/dL Note: This HDL assay may give artificially low results in patients with liver disease. Blood Venous blood specimen / Unknown 12/04/2023 12:39 PM EDT 12/04/2023 2:18 PM EDT Catie Hong MD LAB BLOOD ORDERABLES Final Result [facility] [address] [place] [address] [phone] * Colonoscopy (08/02/2019) Colonoscopy Normal Normal Narrative Heidy Bryant - 08/02/2019 Recommended 5 year follow up Historical Provider HEALTH MAINTENANCE Final Result from Last 3 Months or Most Recently Relevant to Health Maintenance Insurance [facility] OPTIONS (O D-SNP) [place] [id number] [place] [id number] Care Teams Learning Support Resource Room Teacher Relationship Specialty Start Date End Date Catie Hong MD [address] [place] [phone] PCP - General Internal Medicine 03/26/12 [employer] 12/17/23
--- OUTSIDE RECORDS SUMMARY | 2025-06-21 15:50 | XMS_ITS | Encounter Summary ---
Author Organization [employer] Address [address] [facility] 7t [place] [address] Care Team Providers Care Senior Mechanical Engineer Name Role Phone Catie Hong MD Primary Care Provider [phone]- [phone] Encounter Details Date Type Department Care Team (Late st Contact Info) Description 12/10/2024 Orders Only [facility] & PEDS [address] [place], [place] [phone] Catie Hong MD [address] [place], [place] [phone] Acute otitis externa of right ear, unspecified type Social History Tobacco Use Types Packs/Day Years Used Date Smoking Tobacco: Every Day Cigarettes 1 51 Passive Smoke Exposure: Never Smokeless Tobacco: Never Alcohol Use Standard Drinks/Week Comments Never 0 (1 standard drink = 0.6 oz pur e alcohol) Depression Answer Date Recorded Patient Health Questionnaire-9 Score 5 09/10/2022 Housing Stability Answer Date Recorded What is your housing situation today? I have afua gomes 05/28/[address] you li ve. Do you have problems with any of the following? None of the above 05/28/2023 Food Insecurity Answer Date Recorded Within the past 12 months, y ou worried that your food would run out before you got money to buy more: Never True 05/28/2023 Within the past 12 months,th e food you bought just didn't last and you didn't have enough money to get more: Never True Transportation Answer Date Recorded In the past 12 months, has l ack of transportation kept you from medical appts, meetings, work or from getting things needed for daily living? No 05/28/2023 Utilities Answer Date Recorded In the past 12 months, has t he electric, gas, oil or water company threatened to shut off services in your home? No 05/28/2023 Depression Answer Date Recorded Patient Health Questionnaire-2 Score 2 09/10/2022 Sex and Gender Information Value Date Recorded Sex Assigned at Male 06/10/2022 10:14 AM EDT Legal Sex Male 10:14 AM EDT Gender Identity Male 06/10/2022 10:14 AM EDT Sexual Orientation Straight 06/10/2022 10 :14 AM EDT documented as of this encounter Plan of Treatment Not on file documented as of this encounter Visit Diagnoses Diagnosis Acute otitis externa of right ear, unspecified type documented in this encounter Additional Health Concerns Assessment Noted Time PHQ-9 Depression Total Score: 5 09/10/19 23 2:02 PM EST documented as of this encounter Care Teams Senior Mechanical Engineer Relationship Specialty Start Date End Date Catie Hong MD [address] [place] [id number] PCP - General Internal Medicine 03/26/12 [employer] 12/17/23 documented as of this encounter
--- OUTSIDE RECORDS SUMMARY | 2025-06-21 15:50 | XMS_ITS | Encounter Summary ---
Author Organization [employer] Address [address] [facility] 7t [place] [address] Care Team Providers Care University Demonstrator Name Role Phone Catie Hong MD Primary Care Provider [phone]- [phone] Reason for Visit * Reason Onset Date Comments Referral 09/24/2023 Encounter Details Date Type Department Care Team ([facility] st Contact Info) Description 09/24/2023 Telephone [facility] & PEDS [address] [place] [address] Catie Hong MD [address] [place] [address] Referral Social History Tobacco Use Types Packs/Day Years [...] AM EDT documented as of this encounter Miscellaneous Notes * Telephone Encounter - Joyce Kaur - 09/26/2023 2:31 PM EST Referral wasn't faxed to [facility] audiology. Letter was mailed to patient with information of steps to follow with insurance. * Telephone Encounter - Wilfred Gasca - 09/24/2023 10:48 AM EST Tc from Clifford with [facility] requesting if referral for Audiology could be sent to another location due to[facility] not [facility] [employer] insurance. Please contact Clifford If any questions @ [phone] documented in this encounter Plan of Treatment Not on file documented as of this encounter Visit Diagnoses Not on filedocumented in this encounter Additional Health Concerns Assessment Noted Time PHQ-9 Depression Total Score: 5 09/10/19 23 2:02 PM EST documented as of this encounter Care Teams University Demonstrator Relationship Specialty Start Date End Date Catie Hong MD [address] [place] [phone] PCP - General Internal Medicine 03/26/12 [employer] 12/17/23 documented as of this encounter
--- OUTSIDE RECORDS SUMMARY | 2025-06-21 15:50 | XMS_ITS | Encounter Summary ---
Author Organization [employer] Address [address] [facility] 7t [place] [address] Care Team Providers Care Cell Coverer Name Role Phone Catie Hong MD Primary Care Provider [phone]- [phone] Encounter Details Date Type Department Care Team (Late st Contact Info) Description 12/16/2023 Orders Only [facility] MED & PEDS [address] [place], [place] [phone] Catie Hong MD [address] [place], [place] [phone] Social History Tobacco Use Types Packs/Day Years [...] documented as of this encounter Care Teams Cell Coverer Relationship Specialty Start Date End Date Catie Hong MD [address] [place] [phone] PCP - General Internal Medicine 03/26/12 [facility] 12/17/23 documented as of this encounter
--- OUTSIDE RECORDS SUMMARY | 2025-06-21 15:50 | XMS_ITS | Encounter Summary ---
Author Organization [employer] Address [address] [facility] 7t [place] [address] Care Team Providers Care Ground Surveillance Systems Operator Name Role Phone Catie Hong MD Primary Care Provider [phone]- [phone] Reason for Visit * Reason Onset Date Comments Referral 09/15/2023 Encounter Details Date Type Department Care Team ([facility] st Contact Info) Description 09/15/2023 Telephone [facility] MED & PEDS [address] [place], [place] [phone] Catie Hong MD [address] [place] [address] Referral Social History Tobacco Use Types Packs/Day [...] encounter Miscellaneous Notes * Telephone Encounter - Nuris López RN - 09/15/2023 4:36 PM EST Returned call to [facility] Jaxon regarding message below. Jaxon informed pt [facility] and referral is still active. Jaxon states pt may have missed some visits and may or may not be already discharged from practice. Jaxon informed that [facility] eye care has a wait list. We can place referral but needs to be aware of wait list. Jaxon states she will call around and see if pt canbe seen elsewhere sooner and return call if referral is needed. Jaxon verbalized understanding and agrees with plan. * Telephone Encounter - Wilfred Gasca - 09/15/2023 2:33 PM EST Tc from jaxon [facility] requesting a [facility]. Jaxon reports no symptoms just needs yearly check ups. Please if any questions please contact Jaxon @ [phone] [phone] documented in this encounter Plan of Treatment Not on file documented as of this encounter Visit Diagnoses Not on filedocumented in this encounter Additional Health Concerns Assessment Noted Time PHQ-9 Depression Total Score: 5 09/10/19 23 2:02 PM EST documented as of this encounter Care Teams Ground Surveillance Systems Operator Relationship Specialty Start Date End Date Catie Hong MD [address] [place] [address] PCP - General Internal Medicine 03/26/12 [employer] 12/17/23 documented as of this encounter
--- OUTSIDE RECORDS SUMMARY | 2025-06-21 15:50 | XMS_ITS | Encounter Summary ---
Author Organization [employer] Address [address] [facility] [address] [place] [address] Care Team Providers Care Crude Oil Treater Name Role Phone Catie Hong MD Primary Care Provider [phone]- [phone] Reason for Referral * Consultation (Routine) - Closed Specialty Diagnoses / Procedures Referred By Contac t Referred To Contact Otolaryngology Diagnoses Otalgia, unspecified laterality Conductive hearing loss, unspecified laterality Catie Hong MD [address] [place] [address] Phone: tel: fax: [facility] [address] Phone: tel: fax: Referral ID Status Reason Start Date Expiration Date V isits Requested Visits Authorized [id number] Closed Specialty Services Required 01/24/2025 01/24/2026 1 1 Encounter Details Date Type Department Care Team (Late st Contact Info) Description 01/24/2025 Orders Only [facility] CH[facility] MED & PEDS [address] [place] [address] Catie Hong MD [address] [place] [address] Otalgia, unspecified laterality (Primary Dx); Conductive hearing loss, unspecified laterality Social History Tobacco Use Types Packs/Day Years [...] as of this encounter Plan of Treatment Scheduled Referrals Name Type Priority Associated Diagnoses Orde r Schedule Referral to ENT Outpatient Referral Routine Otalgia, unspecified laterality Conductive hearing loss, unspecified laterality Expected: 01/24/2025 (Approximate), Expires: 01/24/2026 documented as of this encounter Visit Diagnoses Diagnosis Otalgia, unspecified laterality- Primary Conductive hearing loss, unspecified laterality documented in this encounter Additional Health Concerns Assessment Noted Time PHQ-9 Depression Total Score: 5 09/10/19 23 2:02 PM EST documented as of this encounter Care Teams Crude Oil Treater Relationship Specialty Start Date End Date Catie Hong MD [address] [place] [phone] PCP - General Internal Medicine 03/26/12 [employer] 12/17/23 documented as of this encounter
--- OUTSIDE RECORDS SUMMARY | 2025-06-21 15:50 | XMS_ITS | Encounter Summary ---
Author Organization [employer] Address [address] [facility] [address] 7[address] [place] [address] Care Team Providers Care Desktop Administrator Name Role Phone Catie Hong MD Primary Care Provider +1- [phone] Encounter Details Date Type Department Care Team (Latest Contact Info) Description 06/21/2025 Travel Social History Tobacco Use Types Packs/Day Years [...] your housing situation today? I have afua mireya 03/21/[address] you li [...] documented as of this encounter Care Teams Desktop Administrator Relationship Specialty Start Date End Date Catie Hong MD [address] [place] [phone] PCP - General Internal Medicine 03/26/12 [employer] 12/17/23 documented as of this encounter
--- OUTSIDE RECORDS SUMMARY | 2025-06-21 15:50 | XMS_ITS | Encounter Summary ---
Author Organization [employer] Address [address] [facility] [address] [place] [address] Care Team Providers Care Videogame Designer Name Role Phone Catie Hong MD Primary Care Provider [phone]- [phone] Reason for Visit * Reason Onset Date Comments Referral 09/09/2023 Encounter Details Date Type Department Care Team (Late st Contact Info) Description 09/09/2023 Telephone [facility] MED[facility] [address] [place], [place] [phone] Catie Hong MD [address] [place], [place] [phone] Referral Social History Tobacco Use Types Packs/Day [...] encounter Miscellaneous Notes * Telephone Encounter - Yasmeen oLve - 09/09/2023 2:03 PM EST Tc from pt requesting a referral for audition specialist pt is interested in receive hearing aids. Pt informed program writer discuss with PCP in last visit. documented in this encounter Plan of Treatment Not on file documented as of this encounter Visit Diagnoses Not on filedocumented in this encounter Additional Health Concerns Assessment Noted Time PHQ-9 Depression Total Score: 5 09/10/19 23 2:02 PM EST documented as of this encounter Care Teams Videogame Designer Relationship Specialty Start Date End Date Catie Hong MD [address] [place] [phone] PCP - General Internal Medicine 03/26/12 [employer] 12/17/23 documented as of this encounter
--- OUTSIDE RECORDS SUMMARY | 2025-06-21 15:50 | XMS_ITS | Encounter Summary ---
Author Organization [employer] Address [address] 7t [place] [address] Care Team Providers Care Export Clerk Name Role Phone Catie Hong MD Primary Care Provider [phone]- [phone] Encounter Details Date Type Department Care Team (Late st Contact Info) Description 06/16/2023 Abstract [facility] MEDICINE [address] [place] [address] Catie Hong MD [address] [place], [place] [phone] Social History Tobacco Use Types Packs/Day Years [...] on file documented as of this encounter Procedures Procedure Name Priority Date/Time Associated Diagnosis Comments COLONOSCOPY Routine 08/02/2019 documented in this encounter Results * Hm Colonoscopy (08/02/2019) Colonoscopy Normal Normal Narrative AnnetteHeidy hess - 08/02/2019 Recommended 5 year follow up us Historical Provider HEALTH MAINTENANCE Final Result documented in this encounter Visit Diagnoses Not on filedocumented in this encounter Additional Health Concerns Assessment Noted Time PHQ-9 Depression Total Score: 5 09/10/19 23 2:02 PM EST documented as of this encounter Care Teams Export Clerk Relationship Specialty Start Date End Date Catie Hong MD [address] [place] [address] PCP - General Internal Medicine 03/26/12 [employer] 12/17/23 documented as of this encounter
--- OUTSIDE RECORDS SUMMARY | 2025-06-21 15:50 | XMS_ITS | Encounter Summary ---
Author Organization [employer] Address [address] [facility] 7t [place] [address] Care Team Providers Care Covering And Lining Supervisor Name Role Phone Catie Hong MD Primary Care Provider [phone]- [phone] Reason for Visit * Reason Onset Date Comments Chart Prep 06/20/2025 Encounter Details Date Type Department Care Team ([facility] st Contact Info) Description 06/20/2025 Telephone C [facility] [address] [place] [address] Catie Hong MD [address] [place] [address] Chart Prep Social History Tobacco Use Types Packs/Day Years [...] encounter Miscellaneous Notes * Telephone Encounter - Lia Izquierdo [place] - 06/20/2025 2:42 PM EST Chart Prep Labs: not done Images: not applicable Referrals: complete Vaccines due: Covid, Flu, and Tdap Screenings: colonoscopy, eye exam, and Lung CA screening Overdue care gaps: A1c, Glucose, Oral health screening, and Tobacco documented in this encounter Plan of Treatment Not on file documented as of this encounter Visit Diagnoses Not on filedocumented in this encounter Additional Health Concerns Assessment Noted Time PHQ-9 Depression Total Score: 16 025 1:31 PM EDT documented as of this encounter Care Teams Covering And Lining Supervisor Relationship Specialty Start Date End Date Catie Hong MD [address] [place] [address] [place] [address] PCP - General Internal Medicine 03/26/12 [employer] 12/17/23 documented as of this encounter
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
--- OUTSIDE RECORDS SUMMARY | 2025-06-21 15:50 | XMS_ITS | Encounter Summary ---
Author Organization [employer] Address [address] [facility] 7t [place] [address] Care Team Providers Care Cloth Printing Inspector Name Role Phone Catie Hong MD Primary Care Provider [phone]- [phone] Reason for Visit * Reason Comments Med Refill Encounter Details Date Type Department Care Team ([facility] st Contact Info) Description 07/20/2023 Refill [facility]EDS [address] [place], [place] [phone] Catie Hong MD [address] [place] [address] Rheumatoid arthritis of other site with positive rheumatoid factor (CMS/HCC); Spasm Social History Tobacco Use Types Packs/Day Years [...] as of this encounter Visit Diagnoses Diagnosis Rheumatoid arthritis of other site with positive rheumatoid factor (HCC) Spasm Abnormal involuntary movements documented in this encounter Additional Health Concerns Assessment Noted Time PHQ-9 Depression Total Score: 5 09/10/19 23 2:02 PM EST documented as of this encounter Care Teams Cloth Printing Inspector Relationship Specialty Start Date End Date Catie Hong MD [address] [place] [address] PCP - General Internal Medicine 03/26/12 [employer] 12/17/23 documented as of this encounter
--- OUTSIDE RECORDS SUMMARY | 2025-06-21 15:50 | XMS_ITS | Encounter Summary ---
Author Organization [employer] Address [address] [facility] 7t [place] [address] Care Team Providers Care Rotoformer Backtender Name Role Phone Catie Hong MD Primary Care Provider Encounter Details Date Type Department Care Team (Late st Contact Info) Description 01/13/2023 Orders Only [facility] MED & PEDS [address] [place] [address] Shauna Gatica LPN Social History Tobacco Use Types Packs/Day Years Used Date Smoking Tobacco: Every Day Cigarettes 1 51 Passive Smoke Exposure: Never Smokeless Tobacco: Never Alcohol Use Standard Drinks/Week Comments Never 0 (1 standard drink = 0.6 oz pur e alcohol) Depression Answer Date Recorded Patient Health Questionnaire-9 Score 5 09/10/2022 Depression Answer Date Recorded Patient Health Questionnaire-2 [...] documented as of this encounter Care Teams Rotoformer Backtender Relationship Specialty Start Date End Date Catie Hong MD [address] [place] [address] PCP - General Internal Medicine 03/26/12 [employer] 12/17/23 documented as of this encounter
--- OUTSIDE RECORDS SUMMARY | 2025-06-21 15:51 | XMS_ITS | Encounter Summary ---
Author Organization [employer] Address [address] [facility] 7t [place] [address] Care Team Providers Care Dairy Manufacturing Technologist Name Role Phone Catie Hong MD Primary Care Provider +1- [phone] Encounter Details Date Type Department Care Team (Late st Contact Info) Description 09/28/2024 Orders Only [facility] [address] [place] [address] Provider, MD Jennifer Social History Tobacco Use Types Packs/Day Years [...] housing situation today? I have afua mireya 05/28/[address] you li [...] Procedure Name Priority Date/Time Associated Diagnosis Comments ALBUMIN/CREATININE RATIO, RANDOM URINE Routine 09/16/2024 9:10 AM EST WHITE BLOOD CELL COUNT Routine 09/16/2024 9:10 AM EST documented in this encounter Results * Albumin/Creatinine Ratio, Random Urine (09/16/2024 9:10 AM EST) Urine (Urine, Random) Historical Provider LAB URINE ORDERABLES Virgen l Result * White Blood Cell Count (09/16/2024 9:10 AM EST) Blood Venous blood specimen / Unknown Historical Provider LAB BLOOD ORDERABLES Virgen l Result documented in this encounter Visit Diagnoses Not on filedocumented in this encounter Additional Health Concerns Assessment Noted Time PHQ-9 Depression Total Score: 5 09/10/19 23 2:02 PM EST documented as of this encounter Care Teams Dairy Manufacturing Technologist Relationship Specialty Start Date End Date Catie Hong MD [address] [place] [address] PCP - General Internal Medicine 03/26/12 [employer] 12/17/23 documented as of this encounter
[2025-06-21 16:39] LABS: MANUAL DIFF FLAG NO
[2025-06-21 16:43] LABS: Hematocrit 40.2 % (42.0-52.0); Hemoglobin 13.5 g/dl (14.0-18.0); Imm Gran Abs Auto 0.01 X10*3/uL (0.00-0.03); Imm Gran Pct Auto 0.2 % (0.0-0.4); Lymphocytes Absolute Auto 1.9 X10*3/uL (1.2-4.9); Mean Corpuscular HGB Conc 33.6 g/dl (31.0-36.0); Mean Corpuscular Hemoglobin 29.7 pg (27.0-33.0); Mean Corpuscular Volume 88.5 fL (80.0-98.0); NRBC Abs Auto 0.000 X10*3/uL (0.0-0.012); NRBC Pct Auto 0.0 /100WBC (0.0-0.2); Platelet Count 179 X10*3/uL (160-400); Red Blood Count 4.54 X10*6/uL (4.60-5.80); White Blood Count 5.9 X10*3/uL (4.8-10.8)
[2025-06-21 17:11] LABS: Alanine Aminotransferase 52 U/L (0-40); Albumin Level 4.4 g/dL (3.5-5.0); Alkaline Phosphatase 67 U/L (39-117); Anion Gap 15 (12-20); Aspartate Amino Transferase 40 U/L (5-37); Blood Urea Nitrogen 13 mg/dL (9-16); Calcium 10.0 mg/dL (8.4-10.2); Carbon Dioxide 22 mmol/L (22-29); Chloride 98 mmol/L (96-108); Cholesterol 159 mg/dL (<200); Estimated Glomerular Filt Rate > 60; HDL Cholesterol 33 mg/dL (>40); Potassium 4.1 mmol/L (3.3-5.1); Sodium 131 mmol/L (135-145); Total Protein 7.1 g/dL (6.5-8.0); Triglycerides 181 mg/dL (<150)
[2025-06-21 17:13] LABS: Microalbum/Creatinine Ratio Ur 10.2 ug/mg cr (<30)
== END 2025-06-21 14:10 | disposition home or self-care (01) ==
LOC: HO.CHCLDS 14:09
PROVIDERS: Visit Provider Internal Medicine
DX: E11.9 Type 2 diabetes mellitus without complications (principal); I10 Essential (primary) hypertension; E78.00 Pure hypercholesterolemia, unspecified
CPT/HCPCS: 36415; 80053; 80061; 82043; 82570; 84443; 85025

== ENCOUNTER 2025-07-15 10:42 | Outpatient (REF) | payer OTHER, SELFPAY ==
--- OUTSIDE RECORDS SUMMARY | 2025-07-15 12:50 | XMS_ITS | Encounter Summary ---
Author Organization [employer] Address [address] [facility] 7t [place] [address] Care Team Providers Care Product Development Engineer Name Role Phone Catie Hong MD Primary Care Provider Encounter Details Date Type Department Care Team (Late st Contact Info) Description 06/16/2023 Abstract [facility] MEDICINE [address] [place] [address] Catie Hong MD [address] [place], [place] [phone] Social History Tobacco Use Types Packs/Day Years [...] Hm Colonoscopy (08/02/2019) Colonoscopy Normal Normal Narrative Heidy Bryant - 08/02/2019 Recommended 5 year follow up us Historical Provider HEALTH MAINTENANCE Final Result documented in this encounter Visit Diagnoses Not on filedocumented in this encounter Additional Health Concerns Assessment Noted Time PHQ-9 Depression Total Score: 5 09/10/19 23 2:02 PM EST documented as of this encounter Care Teams Product Development Engineer Relationship Specialty Start Date End Date Catie Hong MD [address] [place] [address] PCP - General Internal Medicine 03/26/12 [employer] 12/17/23 documented as of this encounter
--- OUTSIDE RECORDS SUMMARY | 2025-07-15 12:50 | XMS_ITS | Encounter Summary ---
Author Organization [employer] Address [address] [facility] 7t [place] [address] Care Team Providers Care Accounts Receivable Manager Name Role Phone Catie Hong MD Primary Care Provider [phone]- [phone] Reason for Visit * Reason Onset Date Comments Referral 09/24/2023 Encounter Details Date Type Department Care Team ([facility] st Contact Info) Description 09/24/2023 Telephone C [facility] [address] [place], [place] [phone] Catie Hong MD [address] [place] [address] Referral Social History Tobacco Use Types Packs/Day Years Used Date Smoking Tobacco: Every Day Cigarettes 1 51 Passive Smoke Exposure: Never Smokeless Tobacco: Never Alcohol Use Standard Drinks/Week Comments Never 0 (1 standard drink = 0.6 oz pur e alcohol) Depression Answer Date Recorded Patient Health Questionnaire-9 Score 5 09/10/2022 Housing Stability Answer Date Recorded What is your housing situation today? I have afuashun gomes 05/28/[address] you [...] 2:31 PM EST Referral wasn't faxed to [facility] audiology. Letter was mailed to patient with information of steps to follow with insurance. * Telephone Encounter - Wilfred Gasca - 09/24/2023 10:48 AM EST Tc from [facility] with [facility] requesting if referral for Audiology could be sent to another location [facility] [employer] insurance. Please contact [facility] If any questions @ [phone] documented in this encounter Plan of Treatment Not on file documented as of this encounter Visit Diagnoses Not on filedocumented in this encounter Additional Health Concerns Assessment Noted Time PHQ-9 Depression Total Score: 5 09/10/19 23 2:02 PM EST documented as of this encounter Care Teams Accounts Receivable Manager Relationship Specialty Start Date End Date Catie Hong MD [address] [place] [address] PCP - General Internal Medicine 03/26/12 [employer] 12/17/23 documented as of this encounter
--- OUTSIDE RECORDS SUMMARY | 2025-07-15 12:50 | XMS_ITS | Encounter Summary ---
Author Organization [employer] Address [address] [facility] 7t [place] [address] Care Team Providers Care Director Investment Banking Name Role Phone Catie Hong MD Primary Care Provider Encounter Details Date Type Department Care Team (Late st Contact Info) Description 12/16/[address] [facility] MED & PEDS [address] [place], [place] [phone] Catie Hong MD [address] [place], [place] [phone] Social History Tobacco Use Types Packs/Day Years [...] documented as of this encounter Care Teams Director Investment Banking Relationship Specialty Start Date End Date Catie Hong MD [address] [place] [address] PCP - General Internal Medicine 03/26/12 [employer] 12/17/23 documented as of this encounter
--- OUTSIDE RECORDS SUMMARY | 2025-07-15 12:50 | XMS_ITS | Encounter Summary ---
Author Organization [employer] Address [address] [facility] 7t [place] [address] Care Team Providers Care Circular Shear Operator Name Role Phone Catie Hong MD Primary Care Provider Encounter Details Date Type Department Care Team (Late st Contact Info) Description 12/10/2024 Orders Only [facility] MED & PEDS [address] [place], [place] [phone] Catie Hong MD [address] [place], [place] [phone] Acute otitis externa of right ear, unspecified [...] documented as of this encounter Care Teams Circular Shear Operator Relationship Specialty Start Date End Date Catie Hong MD [address] [place] [address] PCP - General Internal Medicine 03/26/12 [employer] 12/17/23 documented as of this encounter
--- OUTSIDE RECORDS SUMMARY | 2025-07-15 12:50 | XMS_ITS | Clinical Summary ---
Author Organization [employer] Address [address] [facility] 7[address] [place] [address] Care Team Providers Care Ct Technician Name Role Phone Catie Hong MD Primary Care Provider [phone]- [phone] Allergies Active Allergy Reactions Criticality Noted Date Comments Penicillins 02/14/2012 Medications DULoxetine (Cymbalta) [address] capsule Take 1 capsule by mouth every 12 (twelve) hours. 05/15/20 21 Active inFLIXimab (Remicade) 100 MG injection 08/27/19 23 Active UltiCare Insulin Syringe 31G X 5/16 0.3 ML misc USE 1 DAILY WITH lantus 04/25/20 22 Active TRUEplus Lancets 33G miscIndications:D iabetes mellitus without complication (HCC) TEST BLOOD SUGAR TWICE DAILY 100 each 3 09/24/19 23 Active Ventolin HFA 108 (90 Base) MCG/ACT inhaler INHALE 2 PUFFS BY MOUTH EVERY 4 HOURS NEEDED FOR WHEEZING 18 g 3 08/15/19 24 Active tiZANidine (Zanaflex) 4 MG tabletIndications :Spasm TAKE 1 TABLET BY MOUTH THREE TIMES DAILY 90 tablet 11 5 2:32 PM EST 06/29/20 24 Active atorvastatin (Lipitor) 80 MG tabletIndications :Hypercholesterol emia TAKE 1 TABLET BY MOUTH EVERY DAY 30 tablet 11 06/29/20 24 Active D3-1000 25 MCG (1000 UT) capsuleIndication s:Vitamin D deficiency TAKE 1 CAPSULE BY MOUTH EVERY DAY 30 capsule 11 09/24/19 25 Active Aspirin EC Adult Low Dose 81 MG EC tabletIndications :Primary hypertension TAKE 1 TABLET BY MOUTH EVERY DAY 90 tablet 3 10/12/19 25 Active metFORMIN (Glucophage) 1000 MG tabletIndications :Type 2 diabetes mellitus without complications (HCC) TAKE 1 TABLET BY MOUTH TWICE DAILY IN THE MORNING AND IN THE EVENING WITH MEALS 180 tablet 3 03/14/20 25 Active lisinopril 10 MG tabletIndications :Essential (primary) hypertension TAKE 1 TABLET BY MOUTH EVERY DAY 90 tablet 1 04/01/20 25 Active Januvia 100 MG tablet TAKE 1 TABLET BY MOUTH ONCE DAILY 30 tablet 4 04/06/20 25 Active ibuprofen 800 MG tabletIndications :Rheumatoid arthritis of other site with positive rheumatoid factor (HCC),Spasm TAKE 1 TABLET BY MOUTH TWICE DAILY 60 tablet 3 5 3:11 PM EST 05/06/20 25 Active omeprazole (PriLOSEC) [address] capsule TAKE 1 CAPSULE BY MOUTH TWICE DAILY 60 capsule 1 5 3:11 PM EST 06/23/20 25 Active omeprazole (PriLOSEC) [address] capsule TAKE 1 CAPSULE BY MOUTH TWICE DAILY 60 capsule 1 04/28/20 25 025 Discontinued Active Problems Problem Noted Date Diagnosed Date Spasm 05/27/2022 Idiopathic osteoarthritis 06/01/2021 Tenderness of joint 06/01/2021 Rheumatoid arthritis (CMS/HCC) 08/21/2020 Hyperplastic polyp of large intestine 08/02/2019 Diabetes mellitus without complication 5 Hypercholesterolemia 01/04/2015 Hypertensive disorder 01/04/2015 Encounters Date Type Department Care Team Description 06/28/2025 Results Follow-Up [facility] [address] [place] [address] Mona Irvin RN CBC auto differential, Comprehensive Metabolic Panel, Lipid Panel, Standard, Additional followed-up results: 4 06/22/2025 Orders Only [facility] [address] [place] [address] Catie Hong MD Hyponatremia (Primary Dx) 06/22/2025 Refill [facility] [address] [place] [address] Catie Hong MD 06/21/2025 2:00 PM EST Office Visit [facility] [address] [place] [address] Catie Hong MD Diabetes mellitus without complication (HCC) (Primary Dx); Primary hypertension; Hypercholesterolemia; Hyperplastic colonic polyp, unspecified part of colon; Smoking addiction; Encounter for vaccination; Encounter for immunization 06/21/2025 Travel 06/20/[address] [facility] [address] [place] [address] Catie Hong MD Chart Prep 05/06/2025 Refill [facility] [address] [place] [address] Catie Hong MD Rheumatoid arthritis of other site with positive rheumatoid factor ([facility]); Spasm 04/27/[address] [facility] [address] [place] [address] Catie Hong MD from Last 3 Months Immunizations Immunization Administration [...] 60 years or older (1 - Risk 50-74 years 1-dose series) 2006 Colonoscopy 08/02/2024 08/02/2019 Colorectal Cancer Screening 08/02/2024 Depression Monitoring 09/21/2025 03/21/2025, 025 Diabetes: Foot Exam 12/10/2025 12/10/2024, 06/03/2023, 06/03/2023, Additional history exists COVID-19 Vaccine ( season) 2025 06/21/2025, 07/23/2021, 06/29/2021 Diabetes: Hemoglobin A1C 12/19/2025 025, 03/21/2025, 12/10/2024, Additional history exists Alcohol/Substance Use Screening 03/21/2026 03/21/2025 SDOH Screening 03/21/2026 03/21/2025 Diabetes: Urine Protein Screening 06/21/2026 06/21/2025, 09/16/2024, 12/04/2023, Additional history exists Lipid Panel 06/21/2026 06/21/2025, 11/10, 09/27/2021, Additional history exists Tobacco Screening 06/21/2026 06/21/2025 DTaP/Tdap/Td Vaccines (2 [...] PM EST Diabetes mellitus without complication (HCC) ALBUMIN, RANDOM URINE W/CREATININE Routine 06/21/2025 2:16 PM EST Diabetes mellitus without complication (HCC) TSH W/REFLEX TO FT4 Routine 06/21/2025 2 :11 PM EST Diabetes mellitus without complication (HCC) LIPID PANEL, STANDARD Routine 06/21/2025 2:11 PM EST Diabetes mellitus without complication (HCC) Primary hypertension Hypercholesterolemia COMPREHENSIVE METABOLIC PANEL Routine 06/21/2025 2:11 PM EST Diabetes mellitus without complication (HCC) CBC WITH AUTO DIFFERENTIAL Routine 06/21/2025 2:11 PM EST Diabetes mellitus without complication (HCC) HEPATITIS C AB W/REFL TO HCV RNA, QN, PCR Routine 12/04/2023 12:39 PM EDT Diabetes mellitus without complication (CMS/HCC) Hypercholesterolemia HM COLONOSCOPY Routine 08/02/2019 from Last 3 [...] Media Lot # [id number] Lot# Expiration Date ,513,486 Blood 06/21/2025 3:08 PM EST Catie Hong MD POINT OF CARE TEST ENTER/ED IT ORDERABLES Final Result * Albumin, Random Urine W/Creatinine (06/21/2025 2:16 PM EST) Creatinine, Urine 215.34 mg/dL [facility] Microalbumin Urine 22.0 mg/L [facility] Microalbum Creatinine Ratio Ur 10.2 <30 ug/mg cr [facility] Comment:Albumin/Creatinine R atio Reference Ranges: Normal: < 30 ug/mg creatinine Microalbuminuria: 30 - 300 ug/mg creatinineClinical Albuminuria: > 300 ug/mg creatinine Urine (Urine, Random) 06/21/2025 2:16 PM EST 06/21/2025 4:37 PM EST Catie Hong MD LAB URINE ORDERABLES Final Result [facility] [address] [place] [address] [phone] * TSH with Reflex to Free T4 (06/21/2025 2:11 PM EST) TSH reflex Free T4 1.16 0.32 - 4.0 uIU/mL [facility] Blood Venous blood specimen / Unknown 06/21/2025 2:11 PM EST 06/21/2025 4:37 PM EST us Catie Hong MD LAB BLOOD ORDERABLES Final Result [facility] [address] [place] [address] [phone] * (ABNORMAL) CBC auto differential (06/21/2025 2:11 PM EST) White Blood Count 5.9 4.8 - 10.8 X10*3/uL [facility] Red Blood Count 4.54(L) 4.60 - 5.80 X10*6/uL [facility] Hemoglobin 13.5(L) 14.0 - 18.0 g/dl [facility] Hematocrit 40.2(L) 42.0 - 52.0 % [facility] Mean Corpuscular Volume 88.5 80.0 - 98.0 fL [facility] Mean Corpuscular Hemoglobin 29.7 27.0 - 33.0 pg [facility] Mean Corpuscular HGB Conc 33.6 31.0 - 36.0 g/dl [facility] Red Cell Distribution Width 13.0 11.0 - 16.0 % [facility] Platelet Count 179 160 - 400 X10*3/uL [facility] Mean Platelet Volume 10.8 9.4 - 12.4 fL [facility] Neutrophils Percent Auto 49.2 45 - 73 % [facility] Imm Gran Pct Auto 0.2 0.0 - 0.4 % [facility] Lymphocytes Percent Auto 32.2 20 - 40 % [facility] Monocytes Percent Auto 8.7 2 - 11 % [facility] Eosinophils Percent Auto 8.3(H) 0 - 4 % [facility] Basophils Percent Auto 1.4 0 - 2 % [facility] NRBC Pct Auto 0.0 0.0 - 0.2 /100WBC [facility] Neutrophils Absolute Auto 2.9 2.0 - 8.3 x10*3/uL [facility] Imm Gran Abs Auto 0.01 0.00 - 0.03 X10*3/uL [facility] Lymphocytes Absolute Auto 1.9 1.2 - 4.9 X10*3/uL [facility] Monocytes Absolute Auto 0.5 0.1 - 1.2 X10*3/uL [facility] Eosinophils Absolute Auto 0.5(H) 0.0 - 0.4 X10*3/uL [facility] Basophils Absolute Auto 0.1 0.0 - 0.2 X10*3/uL [facility] NRBC Abs Auto 0.000 0.0 - 0.012 X10*3/uL [facility] Blood Venous blood specimen / Unknown 06/21/2025 2:11 PM EST 06/21/2025 4:37 PM EST us Catie Hong MD LAB BLOOD ORDERABLES Final Result [facility] [address] [place] [address] [phone] * (ABNORMAL) Lipid Panel, Standard (06/21/2025 2:11 PM EST) Triglycerides 181(H) <150 mg/dL [facility] Comment:Desirable Triglyceri de: less than 150 mg/dLBorderline High Triglyceride 150-199 mg/dLHigh Triglyceride: 200-499 mg/dLVery High Triglyceride: greater than or equal to 5OO mg/dL Cholesterol 159 <200 mg/dL [facility] Comment:Desirable Cholestero l: less than 200 mg/dLBorderline High Cholesterol: 200-239 mg/dLHigh Cholesterol: greater than 239 mg/dL LDL Cholesterol Calculated 90 <100 mg/dL [facility] Comment:Desirable LDL: less than 100 mg/dLNear Optimal/Above Optimal LDL: 110- 129 mg/dLBorderline High LDL: 130-159 mg/dLHigh LDL: 160-189 mg/dLVery High LDL: greater than or equal to 190 mg/dL HDL Cholesterol 33(L) >40 mg/dL [facility] Comment:Desirable HDL: great er than 40 mg/dL Note: This HDL assay may give artificially low results in patients with liver disease. Blood Venous blood specimen / Unknown 06/21/2025 2:11 PM EST 06/21/2025 4:37 PM EST us Catie Hong MD LAB BLOOD ORDERABLES Final Result [facility] [address] [place] [address] [phone] * (ABNORMAL) Comprehensive Metabolic Panel (06/21/2025 2:11 PM EST) Sodium 131(L) 135 - 145 mmol/L [facility] Potassium 4.1 3.3 - 5.1 mmol/L [facility] Chloride 98 96 - 108 mmol/L [facility] Carbon Dioxide 22 22 - 29 mmol/L [facility] Anion Gap 15 12 - 20 [facility] Urea Nitrogen (BUN) 13 9 - 16 mg/dL [facility] Creatinine, Serum 1.18 0.5 - 1.4 mg/dL [facility] Estimated Glomerular Filt Rate >60 [facility] Comment:Chronic Kidney Disea se: Estimated GFR < 60 mL/min/1.02l1Cuuute Kidney Disease: Estimated GFR < 15 mL/min/1.73m2 Glucose 102 60 - 115 mg/dL [facility] Calcium 10.0 8.4 - 10.2 mg/dL [facility] Bilirubin, Total 0.4 0.0 - 1.0 mg/dL [facility] Aspartate Amino Transferase 40(H) 5 - 37 U/L [facility] Alanine Aminotransferase 52(H) 0 - 40 U/L [facility] Total Protein 7.1 6.5 - 8.0 g/dL [facility] Albumin Level 4.4 3.5 - 5.0 g/dL [facility] Alkaline Phosphatase 67 39 - 117 U/L [facility] Blood Venous blood specimen / Unknown 06/21/2025 2:11 PM EST 06/21/2025 4:37 PM EST Catie Hong MD LAB BLOOD ORDERABLES Final Result Performing Organization Address City/[facility] Co de Phone Number [facility] [address] [place] [phone] * Hepatitis C Antibody with Reflex to HCV, RNA, Quantitative, Real-Time PCR (12/04/2023 12:39 PM EDT) Hepatitis C Antibody Nonreactive Nonreactive [facility] Comment:Antibodies to HCV no t detected; does not exclude early acuteHCV infection. Blood Venous blood specimen / Unknown 12/04/2023 12:39 PM EDT 12/04/2023 2:18 PM EDT Catie Hong MD LAB BLOOD ORDERABLES Final Result Performing Organization Address [facility] Co de Phone Number [facility] [address] [place] [phone] * Colonoscopy (08/02/2019) Colonoscopy Normal Normal Narrative Heidy Bryant - 08/02/2019 Recommended 5 year follow up Historical Provider HEALTH MAINTENANCE Final Result from Last 3 Months or Most Recently Relevant to Health Maintenance Insurance [facility] [employer] (HMO D-SNP) [place] [id number] Techn[address] Relationship Specialty Start Date End Date Catie Hong MD [address] [place] [phone] PCP - General Internal Medicine 03/26/12 [employer] 12/17/23
--- OUTSIDE RECORDS SUMMARY | 2025-07-15 12:50 | XMS_ITS | Encounter Summary ---
Author Organization [employer] Address [address] [facility] 7t [place] [address] Care Team Providers Care Command And Control Specialist Name Role Phone Catie Hong MD Primary Care Provider +1- [phone] Reason for Visit * Reason Onset Date Comments Referral 09/15/2023 Encounter Details Date Type Department Care Team ([facility] st Contact Info) Description 09/15/2023 Telephone [facility] [address] [place], [place] [phone] Catie Hong MD [address] [place] [address] Referral Social History Tobacco Use Types Packs/Day [...] already discharged from practice. Jaxon informed that [facility] eye care has a wait [...] if any questions please contact Jaxon @ [phone] documented in this encounter Plan of Treatment Not on file documented as of this encounter Visit Diagnoses Not on filedocumented in this encounter Additional Health Concerns Assessment Noted Time PHQ-9 Depression Total Score: 5 09/10/19 23 2:02 PM EST documented as of this encounter Care Teams Command And Control Specialist Relationship Specialty Start Date End Date Catie Hong MD [address] [place] [address] PCP - General Internal Medicine 03/26/12 [employer] 12/17/23 documented as of this encounter
--- OUTSIDE RECORDS SUMMARY | 2025-07-15 12:50 | XMS_ITS | Encounter Summary ---
Author Organization [employer] Address [address] [facility] 7t [place] [address] Care Team Providers Care School Administrator Name Role Phone Catie Hong MD Primary Care Provider +1- [phone] Reason for Visit * Reason Onset Date Comments Results 06/28/2025 Encounter Details Date Type Department Care Team (Latest Contact Info) Description 06/28/2025 Results Follow-Up [facility] [address] [place] [address] Mona Irvin RN CBC auto differential, Comprehensive Metabolic Panel, Lipid Panel, Standard, Additional followed-up results: 4 Social History Tobacco Use Types Packs/Day Years [...] t he electric, gas, oil or water [employer] threatened to shut off services in your [...] encounter Miscellaneous Notes * Telephone Encounter - Mona Irvin RN - 07/11/2025 10:24 AM EST TC received from pt. [facility] solidworks designer conference into call. Reviewed additional lab and saltrecommendation and fluid restriction. Pt verbalized understanding and agreement with plan. * Telephone Encounter - Mona Irvin RN - 06/28/2025 10:37 AM EST TC to pt with [facility] solidworks designer with phone number in [phone]. Phone number not valid. TC to pt with [facility] solidworks designer with phone number [phone]. No answer x2. Unable to leaveVM for pt to return call to office due to VM box not set up. TC to pt without ambulance officer to both numbers. Neither number in service. * Telephone Encounter - Mona Irvin RN - 06/28/2025 10:37 AM EST ----- Message from Catie Hong MD sent at 06/22/2025 4:27 PM EST ----- Please call. Labs reviewed: pt has Hyponatremia. He needs some additional blood work and urine test. Please advise to decrease water intake to no more than 1.5 liter a day and to use sodium in his diet. The work up is placed in the chart. ----- Message ----- From: Gala Meredith [place] Sent: 06/21/2025 3:09 PM EST To: Catie Hong MD documented in this encounter Plan of Treatment Not on file documented as of this encounter Visit Diagnoses Not on filedocumented in this encounter Additional Health Concerns Assessment Noted Time PHQ-9 Depression Total Score: 16 025 1:31 PM EDT documented as of this encounter Care Teams School Administrator Relationship Specialty Start Date End Date Catie Hong MD [address] [place] [address] [place] [address] PCP - General Internal Medicine 03/26/12 [employer] 12/17/23 documented as of this encounter
--- OUTSIDE RECORDS SUMMARY | 2025-07-15 12:50 | XMS_ITS | Encounter Summary ---
Author Organization [employer] Address [address] [facility] 7 [place] [address] Care Team Providers Care Geriatric Aide Name Role Phone Catie Hong MD Primary Care Provider [phone]- [phone] Reason for Referral * Consultation (Routine) - Closed Specialty Diagnoses / Procedures Referred By Contac t Referred To Contact Otolaryngology Diagnoses Otalgia, unspecified laterality Conductive hearing loss, unspecified laterality Catie Hong MD [address] [place] [address] Phone: tel: fax: [facility] [address] Phone: tel: fax: Referral ID Status Reason Start Date Expiration Date V isits Requested Visits Authorized [id number] Closed Specialty Services Required 01/24/2025 01/24/2026 1 1 Encounter Details Date Type Department Care Team (Late st Contact Info) Description 01/24/2025 Orders Only [facility] [address] [place] [address] Catie Hong MD [address] [place] [address] Otalgia, unspecified laterality (Primary Dx); Conductive hearing [...] your housing situation today? I have afua sing 05/28/[address] you li [...] documented as of this encounter Care Teams Geriatric Aide Relationship Specialty Start Date End Date Catie Hong MD [address] [place] [phone] PCP - General Internal Medicine 03/26/12 [employer] 12/17/23 documented as of this encounter
--- OUTSIDE RECORDS SUMMARY | 2025-07-15 12:50 | XMS_ITS | Encounter Summary ---
Author Organization [employer] Address [address] [facility] 7t [place] [address] Care Team Providers Care Dental Hygiene Administrative Assistant Name Role Phone Catie Hong MD Primary Care Provider Encounter Details Date Type Department Care Team (Late st Contact Info) Description 06/22/2025 Orders Only [facility] [address] [place], [place] [phone] Catie Hong MD [address] [place], [place] [phone] Hyponatremia (Primary Dx) Social History Tobacco Use Types Packs/Day Years [...] housing situation today? I have afuashun gomes 03/21/[address] you [...] of this encounter Plan of Treatment Scheduled Orders Name Type Priority Associated Diagnoses Orde r Schedule Osmolality, Serum Lab Routine Hyponatremia Expected: 06/22/2025 (Approximate), Expires: 06/22/2026 Osmolality, Urine Lab Routine Hyponatremia Expected: 06/22/2025 (Approximate), Expires: 06/22/2026 Basic Metabolic Panel Lab Routine Hyponatremia Expected: 06/22/2025 (Approximate), Expires: 06/22/2026 documented as of this encounter Visit Diagnoses Diagnosis Hyponatremia- Primary Hyposmolality and/or hyponatremia documented in this encounter Additional Health Concerns Assessment Noted Time PHQ-9 Depression Total Score: 16 025 1:31 PM EDT documented as of this encounter Care Teams Dental Hygiene Administrative Assistant Relationship Specialty Start Date End Date Catie Hong MD [address] [place] [phone] PCP - General Internal Medicine 03/26/12 [employer] 12/17/23 documented as of this encounter
--- OUTSIDE RECORDS SUMMARY | 2025-07-15 12:50 | XMS_ITS | Encounter Summary ---
Author Organization [employer] Address [address] [facility] [address]t [place] [address] Care Team Providers Care Yardage Estimator Name Role Phone Catie Hong MD Primary Care Provider +1- [phone] Encounter Details Date Type Department Care Team (Late st Contact Info) Description 09/28/2024 Orders Only [facility] [address] [place] [address] ProviderJennifer MD Social History Tobacco Use Types Packs/Day Years [...] AM EST) Urine (Urine, Random) Historical Provider MD LAB URINE ORDERABLES Virgen l Result * White Blood Cell Count (09/16/2024 9:10 AM EST) Blood Venous blood specimen / Unknown Historical Provider MD LAB BLOOD ORDERABLES Virgen l Result documented in this encounter Visit Diagnoses Not on filedocumented in this encounter Additional Health Concerns Assessment Noted Time PHQ-9 Depression Total Score: 5 09/10/19 23 2:02 PM EST documented as of this encounter Care Teams Yardage Estimator Relationship Specialty Start Date End Date Catie Hong MD [address] [place] [address] PCP - General Internal Medicine 03/26/12 [employer] 12/17/23 documented as of this encounter
--- OUTSIDE RECORDS SUMMARY | 2025-07-15 12:50 | XMS_ITS | Encounter Summary ---
Author Organization [employer] Address [address] [facility] 7 [place] [address] Care Team Providers Care Senior Communications Engineer Name Role Phone Catie Hong MD Primary Care Provider +1- [phone] Encounter Details Date Type Department Care Team (Late st Contact Info) Description 01/13/2023 Orders Only [facility] [address] [place], [place] [phone] Shauna Gatica LPN Social History Tobacco Use [...] as of this encounter Care Teams Senior Communications Engineer Relationship Specialty Start Date End Date Catie Hong MD [address] [place] [address] PCP - General Internal Medicine 03/26/12 [employer] 12/17/23 documented as of this encounter
--- OUTSIDE RECORDS SUMMARY | 2025-07-15 12:50 | XMS_ITS | Encounter Summary ---
Author Organization [employer] Address [address] [facility] 7t [place] [address] Care Team Providers Care Head Sampler Name Role Phone Catie Hong MD Primary Care Provider Reason for Visit * Reason Onset Date Comments Referral 09/09/2023 Encounter Details Date Type Department Care Team (Late st Contact Info) Description 09/09/2023 Telephone [facility] [address] [place] [address] Catie Hong MD [address] [place], [place] [phone] Referral Social History Tobacco Use Types Packs/Day [...] Miscellaneous Notes * Telephone Encounter - Yasmeen Love - 09/09/2023 2:03 PM EST Tc from pt requesting a referral for audition specialist pt is interested in receive hearing aids. Pt informed clinical writer discuss with PCP in last visit. documented in this encounter Plan of Treatment Not on file documented as of this encounter Visit Diagnoses Not on filedocumented in this encounter Additional Health Concerns Assessment Noted Time PHQ-9 Depression Total Score: 5 09/10/19 23 2:02 PM EST documented as of this encounter Care Teams Head Sampler Relationship Specialty Start Date End Date Catie Hong MD [address] [place] [phone] PCP - General Internal Medicine 03/26/12 [employer] 12/17/23 documented as of this encounter
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
--- OUTSIDE RECORDS SUMMARY | 2025-07-15 12:50 | XMS_ITS | Encounter Summary ---
Author Organization [facility] Address [address] [place] [address] Care Team Providers Care Senior Back End Java Developer Name Role Phone Catie Hong MD Primary Care Provider [phone] Reason for Visit * Reason Comments Med Refill Encounter Details Date Type Department Care Team ([facility] st Contact Info) Description 07/20/2023 Refill [facility] [address] [place], [place] [phone] Catie Hong MD [address] [place], [place] [phone] Rheumatoid arthritis of other site with positive rheumatoid factor (CMS/[facility]); Spasm Social History Tobacco Use Types Packs/Day [...] as of this encounter Care Teams Senior Back End Java Developer Relationship Specialty Start Date End Date Catie Hong MD [address] [place] [address] PCP - General Internal Medicine 03/26/12 [place] 12/17/23 documented as of this encounter
[2025-07-15 15:16] LABS: Osmolality, Serum 302 mosm/kg (281-305)
[2025-07-15 17:34] LABS: Alanine Aminotransferase 33 U/L (0-40); Albumin Level 4.4 g/dL (3.5-5.0); Alkaline Phosphatase 66 U/L (39-117); Anion Gap 11 (12-20); Aspartate Amino Transferase 33 U/L (5-37); Blood Urea Nitrogen 16 mg/dL (9-16); Calcium 9.2 mg/dL (8.4-10.2); Carbon Dioxide 24 mmol/L (22-29); Chloride 111 mmol/L (96-108); Cholesterol 117 mg/dL (<200); Estimated Glomerular Filt Rate 52; HDL Cholesterol 28 mg/dL (>40); Potassium 4.2 mmol/L (3.3-5.1); Sodium 142 mmol/L (135-145); Total Protein 6.8 g/dL (6.5-8.0); Triglycerides 187 mg/dL (<150)
== END 2025-07-15 10:43 | disposition home or self-care (01) ==
LOC: HO.CHCLDS 10:42
PROVIDERS: Visit Provider Internal Medicine
DX: E11.9 Type 2 diabetes mellitus without complications (principal); E87.1 Hypo-osmolality and hyponatremia; E78.00 Pure hypercholesterolemia, unspecified
CPT/HCPCS: 36415; 80053; 80061; 83930; 83935